=== PATIENT | female | born 1945 | race Caucasian/White ===

== ENCOUNTER 2021-11-22 19:13 | Emergency (ER) | payer MEDICARE, SELFPAY ==
[2021-11-22 19:15] VITALS: BP 120/73; PULSE 103; RESP 18; TEMP 37.3; O2SAT 95; BMI 20.1
--- NOTE | 2021-11-22 19:46 | EDS_ITS ---
HPI History of Present Illness Chief Complaint: Fever Informant: patient and spouse/S.O. 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 Patient diagnosed at [facility] 6 weeks ago. Patient was started on palliative systemic chemotherapy with FOLFIRI, second treatment was this past Thursday with reported 46-hour infusion into Thursday. This afternoon noted chills and fever had a temporal temperature of 100.9 oral temperature of 102. No antipyretics was taken. Chronic cough with phlegm for 6 weeks. Posttussis emesis. No diarrhea. No rashes. Denies urinary symptoms. also reports ascending aortic aneurysm. She is on palliative treatment. Patient given iron transfusion also this past week. No fever with her first treatment. She called on-call oncologist who sent her to the ED. COVID vaccinated. [facility] Medical History Cancer of sigmoid colon Encounter for chemotherapy management Encounter for education History of kidney cancer Liver metastasis Lung metastasis Metastasis to lymph nodes Home Medications liothyronine 5 mcg tablet 7.5 mcg PO BID 11/08/21 [History Last Taken Unknown] loratadine 10 mg tablet (Allergy Relief (loratadine)) 10 mg PO DAILY 11/08/21 [History Last Taken Unknown] prochlorperazine maleate 10 mg tablet 10 mg PO BID PRN . 11/08/21 [History Last Taken Unknown] lidocaine-prilocaine 2.5 %-2.5 % topical cream 1 applic topical ONCE PRN port access 30 days #30 grams 11/14/21 [Rx Last Taken Unknown] ondansetron 8 mg disintegrating tablet 8 mg PO Q8H PRN nausea and vomiting #30 tabs 11/14/21 [Rx Last Taken Unknown] cephalexin 500 mg capsule 500 mg PO Q12 #6 caps 11/22/21 [Rx Last Taken Unknown] guaifenesin 600 mg tablet, extended release 12 hr (Mucinex) 600 mg PO Q12H PRN lunghs 11/22/21 [History Last Taken Unknown] Allergy/AdvReac Type Severity Reaction Status Date / Time morphine Allergy unknown Verified 11/22/21 19:18 alendronate sodium AdvReac joint pain Verified 11/22/21 19:18 risedronate sodium AdvReac Pain in Verified 11/22/21 22:23 joints Family History Mother Breast cancer Brother Lung cancer Aunt Breast cancer Surgical History History of insertion of tunneled central venous catheter (CVC) with port History of nephrectomy, right Hx of hysterectomy Social History (Updated 11/22/21 @ 21:[address] Jacquelyn Moncada MD) household members: spouse Smoking Status: Never smoker alcohol intake: never substance use type: does not use ROS ROS ED Constitutional Constitutional ED: Reports chills and fever(s); Denies sweats Eyes Eyes: Denies change in vision ENT ENT ED: Denies dysphagia or sore throat Cardiovascular Cardiovascular: Denies chest pain, leg edema, palpitations or racing heartbeat Respiratory/Chest Respiratory/Chest: Reports cough; Denies dyspnea or dyspnea on exertion Gastrointestinal Gastrointestinal: Denies abdominal pain, diarrhea, nausea or vomiting Genitourinary Genitourinary ED: Denies dysuria, hematuria or urinary frequency Musculoskeletal Musculoskeletal: Denies back pain, extremity pain or neck pain Integumentary Denies rash or wounds Neurologic Neurologic: Denies headache(s), paresthesias or weakness EXAM Physical Exam Const Vital Signs: 11/22/21 19:15 11/22/21 19:35 11/22/21 21:01 Temperature 99.1 F 100.6 F H Temperature Source Oral Oral Pulse Rate 103 H 90 Respiratory Rate 18 22 H Respiratory Effort Normal Respiratory Pattern Normal Blood Pressure 120/73 112/67 Blood Pressure Mean 88 82 Pulse Ox 95 94 Oxygen Delivery Method Room Air Room Air 11/22/21 22:27 Temperature 98.6 F Temperature Source Pulse Rate 89 Respiratory Rate 16 Respiratory Effort Respiratory Pattern Blood Pressure 116/59 L Blood Pressure Mean Pulse Ox Oxygen Delivery Method Constitutional Narrative: Nontoxic, no acute distress General Appearance ED: NAD HEENT Reports moist mucous membranes normocephalic and atraumatic Eyes PERRL, EOMs intact bilaterally and conjunctivae normal General Eye ED: Yes normal appearance of both eyes Neck no lymphadenopathy and supple General: Negative for tenderness Chest Wall Chest Narrative: Right upper chest wall Mediport clean, dry, intact Chest: Negative for tenderness Resp normal respiratory effort and normal air movement Effort and Inspection: symmetric chest movement; Negative for respiratory distress Cardio regular rate, regular rhythm and no murmurs Peripheral Pulses: pulses 2+ throughout GI normal to inspection, nondistended, normoactive bowel sounds and non-tender Palpation: Negative for guarding or rebound tenderness present Back/Spine no CVA tenderness and no thoracic nor lumbar tenderness Extremity normal to inspection General Extremety ED: Negative for edema or tenderness General Extremity: Negative for edema Neuro oriented x3 and no sensory deficits noted Sensorium / Orientation: awake and alert Skin no rashes or lesions noted and no wounds MDM MDM MDM Narrative Medical decision making narrative: Patient nontoxic. Temp 99.1 on arrival. Recent chemo. Neutropenic labs were ordered. White count 2.5 and absolute neutrophil 2200. Electrolytes normal. COVID-negative. Two-view chest x-ray reviewed myself and read by radiology negative for acute process. Lactic acid 0.8. Urine noted signs of infection. Urine and blood cultures in the lab. She denied any urine symptoms. I discussed with covering oncologist Dr. Seymour, discussed patient's history. He states this could be chemo induced fever however recommend treating urinary tract infection. Initial discussion for Cipro however she has history of thoracic aneurysm therefore Keflex was given and started. They have a follow-up on Thursday. Return precautions discussed. All questions were answered. Lab Data Attestation: I reviewed the patient's lab results. Labs: Laboratory Results - last 24 hr 11/22/21 11/22/21 11/22/21 20:05 20:05 20:05 WBC 2.5 L RBC 3.13 L Hgb 8.3 L Hct 25.9 L MCV 82.7 MCH 26.5 L MCHC 32.0 RDW Std Deviation 52.7 H RDW Coeff of Henry 17.7 H Plt Count 231 MPV 10.0 Immature Gran % (Auto) 0.800 Neut % (Auto) 85.7 H Lymph % (Auto) 10.3 L [place] % (Auto) 1.2 Eos % (Auto) 1.2 Baso % (Auto) 0.8 Absolute Neuts (auto) 2.2 Absolute Lymphs (auto) 0.26 L Nucleated RBC % 0 Differential Comment SEE COMMENT Diff Path Review May foll Platelet Estimate ADEQUATE RBC Morphology NORM C+C Anisocytosis RARE PT 15.8 H INR 1.3 APTT 31.4 Sodium 135 L Potassium 3.8 Chloride 103 Carbon Dioxide 23.0 Anion Gap 9 BUN 15 Creatinine 0.72 Estim Creat Clear Calc 36.52 Est GFR (MDRD) Af Amer 101 Est GFR (MDRD) Non-Af 83 BUN/Creatinine Ratio 20.9 H Glucose 109 H Lactic Acid Calcium 8.0 L Total Bilirubin 0.60 AST 67 H ALT 54 Alkaline Phosphatase 180 H Total Protein 5.0 L Albumin 2.1 L Globulin 2.9 Albumin/Globulin Ratio 0.7 L Urine Color Urine Clarity Urine pH Ur Specific [place] Urine Protein Urine Glucose (UA) Urine Ketones Urine Occult Blood Urine Nitrite Urine Bilirubin Urine Urobilinogen Ur Leukocyte Esterase Urine RBC Urine WBC Ur Squamous Epith Cells Ur Transition Epith Cell Amorphous Sediment Urine Bacteria Urine Mucus 11/22/21 11/22/21 20:05 20:05 WBC RBC Hgb Hct MCV MCH MCHC RDW Std Deviation RDW Coeff of Henry Plt Count MPV Immature Gran % (Auto) Neut % (Auto) Lymph % (Auto) [place] % (Auto) Eos % (Auto) Baso % (Auto) Absolute Neuts (auto) Absolute Lymphs (auto) Nucleated RBC % Differential Comment Diff Path Review Platelet Estimate RBC Morphology Anisocytosis PT INR APTT Sodium Potassium Chloride Carbon Dioxide Anion Gap BUN Creatinine Estim Creat Clear Calc Est GFR (MDRD) Af Amer Est GFR (MDRD) Non-Af BUN/Creatinine Ratio Glucose Lactic Acid 0.8 Calcium Total Bilirubin AST ALT Alkaline Phosphatase Total Protein Albumin Globulin Albumin/Globulin Ratio Urine Color Yellow Urine Clarity Cloudy Urine pH 6.0 Ur Specific [place] 1.015 Urine Protein 15 H Urine Glucose (UA) Normal Urine Ketones 5 H Urine Occult Blood 25 H Urine Nitrite Negative Urine Bilirubin Negative Urine Urobilinogen Normal Ur Leukocyte Esterase 500 H Urine RBC 0-5 SEEN Urine WBC 10-25 SEEN Ur Squamous Epith Cells 0-5 SEEN Ur Transition Epith Cell 0-5 SEEN Amorphous Sediment 1+ URATE Urine Bacteria 3+ Urine Mucus 0 SEEN Radiography Diagnostic Testing: Clinical Impression(s) from Imaging Studies Chest X-Ray 11/22/21 20:38 IMPRESSION: Mild left basilar scarring with no acute pulmonary abnormality. Electronically Signed: Denny Novoa MD at 21:01 EDT , Discharge Plan Triage Chief Complaint: Fever ED Provider: Joey Campa Dx/Rx/DC Orders Clinical Impression: Fever, Cancer of sigmoid colon, Liver metastasis, Neutropenia, Acute UTI, Adenocarcinoma, Chemotherapy adverse reaction, Anemia Instructions: Neutropenia, UTIs Understanding, ED Fever Control (Adult) Prescriptions: New cephalexin [cephalexin] 500 mg capsule 500 mg PO Q12 Qty: 6 0RF No Action liothyronine 5 mcg tablet 7.5 mcg PO BID loratadine [Allergy Relief (loratadine)] 10 mg tablet 10 mg PO DAILY prochlorperazine maleate 10 mg tablet 10 mg PO BID PRN (Reason: .) ondansetron 8 mg tablet,disintegrating 8 mg PO Q8H PRN (Reason: nausea and vomiting) Qty: 30 2RF lidocaine-prilocaine 2.5-2.5 % cream 1 applic topical ONCE PRN (Reason: port access) 30 Days Qty: 30 2RF guaifenesin [Mucinex] 600 mg Tablet Extended Release 12hr 600 mg PO Q12H PRN (Reason: lunghs) Primary Care Provider: Minda Madden Referrals: Minda Madden MD [Primary Care Provider] - Angeline Sheppard MD [Med Staff - Active Staff] - 3-5 Days Activity Restrictions/Additional Instructions: Take antibiotic as prescribed for UTI. Tylenol as needed. Blood cultures pending. COVID-negative. Chest x-ray negative. White count 2.5 absolute neutrophils 2200. Hemoglobin 8.3. Follow-up on Thursday, return if any worsening symptoms. Disposition Disposition: Home, Self Care Discharge Date/Time: 11/22/21 22:30
[2021-11-22 20:19] LABS: Mucous, Urine 0 SEEN /hpf (<or=2+)
[2021-11-22 20:23] LABS: Absolute Lymphocyte Count 0.26 X10^3/uL (0.83-4.51); Absolute Neutrophil Count 2.2 X10^3/uL (2.0-7.7); Basophil# 0.02 X10^3/uL; Basophil% 0.8 % (0-1); Eosinophil# 0.03 X10^3/uL; Eosinophils% 1.2 % (0-5); Hematocrit 25.9 % (37-47); Hemoglobin 8.3 g/dL (12.0-15.0); Lymphocyte # 0.26 X10^3/ul (0.83-4.51); Lymphocyte % 10.3 % (19-41); Mean Corpuscular Hgb 26.5 pg (27.0-32.0); Mean Corpuscular Volume 82.7 fL (81-99); Monocyte# 0.03 X10^3/uL; Monocyte% 1.2 % (0-10); NRBC Flagged by Analyzer 0 % (0-5); Neutrophil # 2.17 X10^3/uL (2.7-7.7); Neutrophil % 85.7 % (47-70); POSITIVE DIFFERENTIAL YES; Platelet Count 231 K/mm3 (150-450); RBC Distribution Width CV 17.7 % (11.6-14.6); RBC Distribution Width SD 52.7 fl (35.1-43.9); Red Blood Count 3.13 M/mm3 (4.2-5.4); White Blood Count 2.5 K/mm3 (4.4-11.0)
[2021-11-22 20:27] LABS: Color, Urine Yellow (Yellow); Glucose, Dipstick Normal (Normal); Ketone-Dipstick 5 mg/dl (Negative); Leukocyte Esterase-Dipstick 500 /ul (Negative); Nitrite-Dipstick Negative (Negative); Occult Blood-Urine 25 /ul (Negative); Protein-Dipstick 15 mg/dl (Negative); Specific Gravity, Urine 1.015 (1.002-1.030); Urine Bilirubin Dipstick Negative (Negative); Urine Clarity Cloudy (Clear); Urine Urobilinogen Normal (Normal)
[2021-11-22 20:29] LABS: Differential Indicated SCAN CRITERIA MET
[2021-11-22 20:32] LABS: International Normalized Ratio 1.3; Prothrombin Time (Protime)PT. 15.8 SECONDS (11.7-14.9)
[2021-11-22 20:33] LABS: Partial Thromboplast Time 31.4 Seconds (24.1-36.2)
[2021-11-22 20:37] LABS: Red Blood Cells-Urine 0-5 SEEN /hpf (0-5); Squamous Epithelial Cells - UA 0-5 SEEN /hpf (5-10); Transitional Epithelial - Ur 0-5 SEEN /hpf (0-5); White Blood Cells 10-25 SEEN /hpf (0-5)
[2021-11-22 20:38] LABS: Amorphous Sediment 1+ URATE; Bacteria 3+ /hpf (None Seen)
--- NOTE | 2021-11-22 20:38 | RAD_ITS ---
EXAM: XR CHEST, 2 VIEWS CLINICAL INDICATION: cough TECHNIQUE: Frontal and lateral views of the chest. This report was created using [employer] report generation technology. COMPARISON: None. FINDINGS: LUNGS AND PLEURAL SPACES: There is minimal scarring in the left lung base. No pneumothorax. No effusion. HEART: Unremarkable. Cardiac silhouette not enlarged. MEDIASTINUM: Central airways and mediastinal contour are unremarkable. BONES/JOINTS: There is mild curvature of the thoracolumbar spine. SOFT TISSUES: Unremarkable. TUBES, LINES AND DEVICES: There is a right-sided Port-A-Cath with the distal tip overlying the superior vena cava. UPPER ABDOMEN: Multiple surgical clips are seen in the upper abdomen. RAD/Chest PA and Lateral IMPRESSION: Mild left basilar scarring with no acute pulmonary abnormality. Electronically Signed: Denny Novoa MD at 21:01 EDT ,
[2021-11-22 20:43] LABS: ALB/GLOB Ratio 0.7 RATIO (0.9-2.4); AST(SGOT) 67 U/L (15-37); Alanine Aminotransfer ALT/SGPT 54 U/L (13-56); Albumin, Serum 2.1 g/dL (3.2-5.0); Alkaline Phosphatase 180 U/L (45-117); Anion Gap 9 (5-15); BUN 15 mg/dL (7-18); BUN/Creat Ratio 20.9 RATIO (10-20); Chloride 103 mmol/L (98-107); Creatinine, Serum 0.72 mg/dL (0.55-1.02); EST Glomerular Filtration Rate 83 mL/min (>60); Est Glom Filt Rate - Afr Amer 101 mL/min (>60); Estimated Creatinine Clearance 36.52 ml/min; Globulin 2.9 g/dL (2.2-4.2); Glucose 109 mg/dL (74-106); Potassium 3.8 mmol/L (3.5-5.1); Sodium Level 135 mmol/L (136-145)
[2021-11-22 20:45] LABS: Anisocytosis RARE; Platelet Estimate ADEQUATE (ADEQ)
[2021-11-22 20:46] LABS: Red Cell Morphology NORM C+C NORMAL (NORM C&C)
[2021-11-22 21:01] VITALS: BP 112/67; PULSE 90; RESP 22; TEMP 38.1; O2SAT 94
[2021-11-22 21:01] LABS: Lactic Acid 0.8 mmol/L (0.4-1.9)
[2021-11-22] MEDS: Acetaminophen 500 MG Tablet 1000 MG PO (21:21)
[2021-11-22] MEDS: Cephalexin 250 MG Capsule 500 MG PO (22:18)
[2021-11-22 22:27] VITALS: BP 116/59; PULSE 89; RESP 16; TEMP 37
[2021-11-25 11:14] LABS: Pathologist Review Reviewed
== END 2021-11-22 22:30 | disposition home or self-care (01) ==
PROVIDERS: Emergency Provider Emergency Medicine; PCP Family Medicine; Visit Provider Emergency Medicine
DX: C18.7 Malignant neoplasm of sigmoid colon (principal); C78.7 Secondary malignant neoplasm of liver and intrahepatic bile duct; C78.00 Secondary malignant neoplasm of unspecified lung; D70.9 Neutropenia, unspecified; R50.9 Fever, unspecified; N39.0 Urinary tract infection, site not specified; D63.0 Anemia in neoplastic disease; D64.81 Anemia due to antineoplastic chemotherapy; Z20.822 Contact with and (suspected) exposure to COVID-19; Z92.21 Personal history of antineoplastic chemotherapy
CPT/HCPCS: 36591; 71046; 80053; 81001; 83605; 85025; 85610; 85730; 87040; 87077; 87086; 87088; 87186; 87811; 99284

== ENCOUNTER → 2022-02-12 | Outpatient (CLI) | payer MEDICARE, SELFPAY ==
--- NOTE | 2022-02-12 08:02 | CT_ITS ---
STUDY: CT CHEST, ABDOMEN T PELVIS WITH CONTRAST REASON FOR EXAM: Female, 76 years old. ASSESS TREATMENT RESPONSE. Patient has a history of colon carcinoma. RADIATION DOSAGE (If Supplied By Facility): CTDIvol = ( 8.58 ) mGy, DLP = ( 609.40 ) mGycm TECHNIQUE: Transaxial imaging was performed following intravenous administration of Oral and amp; IV Readi-CAT and amp; 75mL Isovue-300. Multiplanar coronal and sagittal images were reformatted. Individualized dose optimization techniques were used for this CT. COMPARISON: Comparison is made with prior study dated 09/28/2021 and 09/13/2021. FINDINGS: CHEST Hyperinflation. Emphysematous changes more prominent in the upper lobes. There is no demonstrated pleural abnormality. Mild degree of anterior pericardial thickening. There are calcifications of the coronary arteries. Normal mediastinum. Normal hilar regions. Normal unenhanced pulmonary arteries. Stable fusiform descending thoracic aortic aneurysm with a transverse dimension of 6.1 cm. There are multi-level degenerative changes of the thoracic spine. Increased kyphosis. ABDOMEN Hepatomegaly. There is a 6.5 cm x 6.7 cm x 6.3 cm heterogeneous enhancing mass in the posterior aspect of the right lobe of the liver extending from the dome down to its lower portion. This has improved as compared to prior study. There is also evidence of a 1.2 cm hypodense nodule in the peripheral lateral aspect of the dome of the right lobe of the liver. The patient is status post cholecystectomy. Normal spleen. Normal pancreas. Normal bilateral adrenal glands. The patient is status post right nephrectomy. Normal left kidney. Normal visualized stomach. Stable large duodenal diverticulum in the second portion of the duodenum. There are multiple colonic diverticula consistent with diverticulosis. There is non-visualization of the appendix. There is diffuse atherosclerotic calcification of the abdominal aorta, without a demonstrated aneurysm. Normal inferior vena cava. Normal retroperitoneum. Normal abdominal wall. There are diffuse degenerative changes of the visualized lumbar spine. Levoscoliosis. PELVIS Distended urinary bladder. Patient is status post appendectomy. There is diffuse atherosclerotic calcification of the pelvic arteries. CT/CT Chest, Abd, Pel w/Contrast IMPRESSION: Stable fusiform aneurysm of the ascending thoracic aorta. Interval improvement of the right hepatic mass. Status post right nephrectomy. Electronically Signed: Azael Barnett MD at 13:37 EST ,
[2022-02-12] MEDS: 0.9% Saline Lock 10 ML Syringe IV (08:20)
== END | disposition home or self-care (01) ==
LOC: CT 08:00
PROVIDERS: PCP Family Medicine; Visit Provider Internal Medicine Hematology & Oncology
DX: Z90.49 Acquired absence of other specified parts of digestive tract (principal); C18.7 Malignant neoplasm of sigmoid colon; I70.0 Atherosclerosis of aorta; I25.10 Atherosclerotic heart disease of native coronary artery without angina pectoris; I71.23 Aneurysm of the descending thoracic aorta, without rupture; Z90.5 Acquired absence of kidney; R16.0 Hepatomegaly, not elsewhere classified
CPT/HCPCS: 71260; 74177; J7040; Q9967; A4216

== ENCOUNTER 2022-03-18 10:21 | Emergency (ER) | payer MEDICARE, SELFPAY ==
[2022-03-18 10:21] VITALS: BP 136/76; PULSE 82; RESP 18; TEMP 36.3; O2SAT 99; BMI 20.2
--- NOTE | 2022-03-18 10:33 | ED.RN ---
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
--- NOTE | 2022-03-18 10:53 | CT_ITS ---
STUDY: CT ABDOMEN AND PELVIS WITHOUT CONTRAST REASON FOR EXAM: Female, 76 years old. Right flank pain. RADIATION DOSAGE (If Supplied By Facility): CTDIvol = ( 6.14 ) mGy, DLP = ( 262.15 ) mGycm TECHNIQUE: Transaxial images were obtained from the dome of the diaphragm to the symphysis pubis without oral contrast, and without intravenous contrast. Sagittal and coronal images were reconstructed. Individualized dose optimization techniques were used for this CT. COMPARISON: Comparison is made with prior examination dated 02/12/2022. FINDINGS: Mild scarring and bronchiectasis in the posterior medial segment of the left lower lobe. Mild scarring at the right lung base. Coronary artery calcification. Once again, there is heterogeneous appearance of the liver with multiple hypodense lesions. The largest is in the posterior aspect of the right lobe liver measuring 5.7 cm by 6.5 cm. There are surgical clips in the gallbladder fossa consistent with a prior cholecystectomy. Normal spleen. Normal pancreas. Normal bilateral adrenal glands. Once again, the patient is status post right nephrectomy and adrenalectomy. Normal left kidney. Normal visualized stomach. Normal small intestine. There are multiple colonic diverticula consistent with diverticulosis. There is non-visualization of the appendix. There is diffuse atherosclerotic calcification of the abdominal aorta, without a demonstrated aneurysm. Normal inferior vena cava. Normal retroperitoneum. Normal urinary bladder. There is absence of the uterus consistent with a prior hysterectomy. Normal abdominal wall. There are diffuse degenerative changes of the visualized lumbar spine. Levoscoliosis. CT/Abdomen/Pelvis without Cont IMPRESSION: Heterogeneous appearance of the liver with hepatic masses as described in keeping with metastatic disease. Status post right nephrectomy. Electronically Signed: Azael Barnett MD at 12:41 EST ,
[2022-03-18] MEDS: 0.9% Normal Saline 1,000 ML 100 ML IV (11:04)
--- NOTE | 2022-03-18 11:08 | EDS_ITS ---
HPI HPI - GI History of Present Illness Chief Complaint: Abd Pain Informant: patient and spouse/S.O. 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 Patient has had a prior right nephrectomy, appendectomy and hysterectomy with salpingo-oophorectomy. She states that she has been having pain since 08 March. It seems to worsen the evening. Last Thursday (03/14) she was prescribed Augmentin from her primary care doctor for presumed diverticulitis. Patient does have known diverticulum. She is continued have pain and has had worsening pain despite taking antibiotic. She states that the antibiotic was upsetting her stomach so yesterday she only took 1 Augmentin instead of 2 but the other day she was taking it twice a day. She states she had 3 good bowel movements yesterday and one today. Denies any black or blood in her stool. Denies any urinary symptoms. Denies any fever or chills. Saw her oncologist today who checked a CBC and a CMP and sent her to the ER for further evaluation and concern for failure of outpatient treatment. 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 11/08/21 [History Last Taken Unknown] lidocaine-prilocaine 2.5 %-2.5 % topical cream 1 applic topical ONCE PRN port access 30 days #30 grams 11/14/21 [Rx Last Taken Unknown] ondansetron 8 mg disintegrating tablet 8 mg PO Q8H PRN nausea and vomiting #30 tabs 11/14/21 [Rx Last Taken Unknown] diphenhydramine HCl 25 mg capsule (ZzzQuil) 25 mg PO QHS PRN Insomnia 12/24/21 [History Last Taken Unknown] meloxicam 7.5 mg tablet 7.5 mg PO DAILY 01/21/22 [History Last Taken Unknown] acetaminophen 500 mg tablet (Tylenol Extra Strength) 500 mg PO Q6H PRN 03/18/22 [History Last Taken Unknown] amoxicillin 875 mg-potassium clavulanate 125 mg tablet 1 tab PO BID 03/18/22 [History Last Taken Unknown] dicyclomine 10 mg capsule 20 mg PO TID PRN abdominal discomfort #20 caps 03/18/22 [Rx Last Taken Unknown] Allergy/AdvReac Type Severity Reaction Status Date / Time morphine Allergy unknown Verified 03/18/22 10:24 alendronate sodium AdvReac joint pain Verified 03/18/22 10:24 risedronate sodium AdvReac Pain in Verified 03/18/22 10:24 joints Family History Mother Breast cancer Brother Lung cancer Aunt Breast cancer Surgical History History of insertion of tunneled central venous catheter (CVC) with port History of nephrectomy, right Hx of hysterectomy Social History household members: spouse Smoking Status: Never smoker alcohol intake: never substance use type: does not use ROS ROS ED Constitutional Constitutional ED: Denies chills, fever(s) or sweats ENT ENT ED: Denies sore throat Cardiovascular Cardiovascular: Denies chest pain or palpitations Respiratory/Chest Respiratory/Chest: Denies cough Gastrointestinal Gastrointestinal: Reports abdominal pain; Denies constipation, diarrhea, melena, nausea or vomiting Genitourinary Genitourinary ED: Denies dysuria, hematuria or urinary frequency Musculoskeletal Musculoskeletal: Reports back pain; Denies arthralgias or myalgias Integumentary Denies rash Neurologic Neurologic: Denies headache(s), paresthesias or weakness Psychiatric Psychiatric: Denies anxiety Hematologic/Lymphatic Hematologic/Lymphatic: Denies easy bleeding or easy bruising EXAM Physical Exam Const Vital Signs: 03/18/22 10:21 Temperature 97.4 F L Temperature Source Temporal Pulse Rate 82 Respiratory Rate 18 Blood Pressure 136/76 H Blood Pressure Mean 96 Pulse Ox 99 Oxygen Delivery Method Room Air Positive well nourished and well developed General Appearance ED: well developed and NAD HEENT Reports moist mucous membranes Eyes PERRL and EOMs intact bilaterally Neck supple Resp normal respiratory effort and clear to auscultation bilaterally Cardio regular rate, regular rhythm and no murmurs GI non-distended GI Narrative: Mild diffuse right lower quad abdominal pain. Patient points to her right flank as her area of pain. Negative Bruce sign. Patient does have soft, nontender hernia in the right mid abdomen when she bears down. It is reducible with no air or overlying erythema. It is nontender. Auscultation: normoactive bowel sounds Palpation: soft and tender RLQ; Negative for pulsatile mass Back/Spine no CVA tenderness Extremity full ROM General Extremety ED: Negative for edema or tenderness General Extremity: Negative for edema Neuro moves all extremities Sensorium / Orientation: alert, oriented to person, oriented to place and oriented to time Motor Exam: Negative for general weakness Psych mental status grossly normal Skin no wounds General Skin Exam: Negative for jaundice Rashes: no rashes MDM MDM MDM Narrative Medical decision making narrative: Patient's prior oncology note from earlier today independently reviewed. Patient is on palliative treatment with FOLFIRI. 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 Outpatient lab work ordered today showed CBC with white blood cell count of 9.5, hemoglobin of 12, hemocrit of 35.9 and platelet count of 163. Patient's immature granulocytes are 1.2% with neutrophil predominance. largely normal with a BUN of 19, creatinine of 0.94 (her baseline), elevated alkaline phosphatase of 171 and mild hyperkalemia of 114. All these are baseline. No other significant abnormalities. Will check urinalysis and obtain a CT of the abdomen and pelvis with IV contrast for further evaluation including signs of complications of diverticulitis including perforation and abscess in addition to obstruction or other acute intra-abdominal pathology. Patient declines any pain medicine at this time. Will start on maintenance fluids at 100 cc/h. Patient's urinalysis is largely normal. CT the abdomen pelvis with IV contrast shows no metastatic disease. No acute diverticulitis. On my interpretation she does have some increased stool burden will be treated as if she is constipation. Patient has senna and MiraLAX that she can take at home. She is counseled to take 1 not both as she does not want to have significant diarrhea. She is a started on Bentyl to help with pain. Given her lack of fever, leukocytosis or acute findings on her CT I do not think she requires admission at this time. Patient agreeable this plan of care. Patient declined any pain medicine in the ER and does not appear to be in any significant distress. Lab Data Attestation: I reviewed the patient's lab results. Labs: Laboratory Results - last 24 hr 03/18/22 11:30 Urine Color Yellow Urine Clarity Clear Urine pH 6.0 Ur Specific [place] 1.015 Urine Protein Negative Urine Glucose (UA) Normal Urine Ketones Negative Urine Occult Blood 10 H Urine Nitrite Negative Urine Bilirubin Negative Urine Urobilinogen Normal Ur Leukocyte Esterase Negative Urine RBC 0 SEEN Urine WBC 0 SEEN Ur Squamous Epith Cells 0 SEEN Urine Bacteria 0 SEEN Urine Mucus 0 SEEN Radiography Diagnostic Testing: Clinical Impression(s) from Imaging Studies Abdomen/Pelvis CT 03/18/22 10:53 IMPRESSION: Heterogeneous appearance of the liver with hepatic masses as described in keeping with metastatic disease. Status post right nephrectomy. Electronically Signed: Azael Barnett MD at 12:41 EST , Discharge Plan Triage Chief Complaint: Abd Pain ED Provider: Rubina Ballard Dx/Rx/DC Orders Clinical Impression: Abdominal pain of unknown etiology Instructions: ED Abdominal Pain Unkn Cause Fem, ED Constipation (Adult) Prescriptions: New dicyclomine 10 mg capsule 20 mg PO TID PRN (Reason: abdominal discomfort) Qty: 20 0RF No Action liothyronine 5 mcg tablet 7.5 mcg PO BID loratadine [Allergy Relief (loratadine)] 10 mg tablet 10 mg PO DAILY prochlorperazine maleate 10 mg tablet 10 mg PO BID PRN (Reason: .) ondansetron 8 mg tablet,disintegrating 8 mg PO Q8H PRN (Reason: nausea and vomiting) Qty: 30 2RF lidocaine-prilocaine 2.5-2.5 % cream 1 applic topical ONCE PRN (Reason: port access) 30 Days Qty: 30 2RF diphenhydramine HCl [ZzzQuil] 25 mg capsule 25 mg PO QHS PRN (Reason: Insomnia) meloxicam 7.5 mg tablet 7.5 mg PO DAILY acetaminophen [Tylenol Extra Strength] 500 mg tablet 500 mg PO Q6H PRN amoxicillin-pot clavulanate 875-125 mg tablet 1 tab PO BID Rx Instructions: 20 tabs given started on evening of 03/14/22 Primary Care Provider: Minda Madden Referrals: Minda Madden MD [Primary Care Provider] - Activity Restrictions/Additional Instructions: Your CT and lab work is not reflective of diverticulitis, infection or other more severe pathology. No signs of an obstruction or CT. You do have some increase stool burden and possible your pain could be from constipation or movement of the stool in your bowels. We will start you on Bentyl and I recommend either taking senna or MiraLAX as we discussed to help you further bowel movement/cleanout. Please follow-up with your primary care doctor. Return if you have progression or worsening of your symptoms. Disposition Disposition: Home, Self Care Discharge Date/Time: 03/18/22 13:54
[2022-03-18 11:41] LABS: Bacteria 0 SEEN /hpf (None Seen); Mucous, Urine 0 SEEN /hpf (<or=2+); Red Blood Cells-Urine 0 SEEN /hpf (0-5); Squamous Epithelial Cells - UA 0 SEEN /hpf (5-10); White Blood Cells 0 SEEN /hpf (0-5)
[2022-03-18 11:47] LABS: Color, Urine Yellow (Yellow); Glucose, Dipstick Normal (Normal); Ketone-Dipstick Negative (Negative); Leukocyte Esterase-Dipstick Negative /ul (Negative); Nitrite-Dipstick Negative (Negative); Occult Blood-Urine 10 /ul (Negative); Protein-Dipstick Negative (Negative); Specific Gravity, Urine 1.015 (1.002-1.030); Urine Bilirubin Dipstick Negative (Negative); Urine Clarity Clear (Clear); Urine Urobilinogen Normal (Normal)
== END 2022-03-18 13:54 | disposition home or self-care (01) ==
PROVIDERS: Emergency Provider Emergency Medicine; PCP Family Medicine; Visit Provider Emergency Medicine
DX: R10.31 Right lower quadrant pain (principal); C78.7 Secondary malignant neoplasm of liver and intrahepatic bile duct; K57.92 Diverticulitis of intestine, part unspecified, without perforation or abscess without bleeding; Z92.21 Personal history of antineoplastic chemotherapy; Z90.5 Acquired absence of kidney; Z90.721 Acquired absence of ovaries, unilateral; Z90.49 Acquired absence of other specified parts of digestive tract; Z85.038 Personal history of other malignant neoplasm of large intestine; Z79.899 Other long term (current) drug therapy
CPT/HCPCS: 36591; 74176; 80053; 81001; 83735; 85025; 99282; J7030; A4216

== ENCOUNTER → 2022-05-30 | Outpatient (CLI) | payer MEDICARE, SELFPAY ==
--- NOTE | 2022-05-30 14:00 | CT_ITS ---
STUDY: CT CHEST, ABDOMEN T PELVIS WITH CONTRAST REASON FOR EXAM: Female, 76 years old. met colon ca assess response to treatment RADIATION DOSAGE (If Supplied By Facility): CTDIvol = ( 9.08 ) mGy, DLP = ( 611.54 ) mGycm TECHNIQUE: Transaxial imaging was performed following intravenous administration of IV 100mL Isovue-300. Oral contrast was also utilized. Multiplanar coronal and sagittal images were reformatted. Individualized dose optimization techniques were used for this CT. COMPARISON: CT the abdomen and pelvis, March 18, 2022. CT of the chest abdomen pelvis, February 12, 2022 FINDINGS: CHEST Right jugular Port-A-Cath. Lungs are mildly hyperexpanded. There is no focal mass or infiltrate. There is no demonstrated pleural abnormality. The heart is borderline enlarged. Minimal pericardial thickening versus pericardial effusion. Coronary artery calcifications are noted. Normal mediastinum. Normal hilar regions. Normal unenhanced pulmonary arteries. There is marked dilatation of the ascending thoracic aorta which measures 6.5 x 6.3 cm in greatest dimension. This tapers into the arch. Scattered atherosclerotic changes. No evidence of dissection. Normal osseous structures. ABDOMEN The liver is enlarged. In segment 7 of the liver is ill-defined area of low attenuation with peripheral patchy enhancement measuring 5.9 x 6.4 x 5.4 cm. The liver is otherwise grossly normal in enhancement. Normal gallbladder and extrahepatic biliary system. Normal spleen. Normal pancreas. Nonvisualization of the right adrenal gland. Normal left adrenal gland. There is absence of right kidney with multiple surgical clips suggesting nephrectomy. Normal left kidney. Normal visualized left ureter. Normal visualized stomach. Normal small intestine. Feces is seen throughout nondistended colon without mass or obstruction. Scattered diverticuli without acute inflammatory change. There are surgical clips in the region of the appendix consistent with a prior appendectomy. There is diffuse atherosclerotic calcification of the abdominal aorta with elongation and tortuosity, but without a demonstrated aneurysm. Normal inferior vena cava. Normal retroperitoneum. PELVIS Normal urinary bladder. Status post hysterectomy. Unremarkable vaginal cuff. There is no pelvic fluid. There is no pelvic lymphadenopathy or mass lesion. No free air is noted. There is diffuse atherosclerotic calcification of the pelvic arteries. Normal abdominal wall. Levoscoliosis and degenerative changes lumbar spine. Mild degenerative changes of the hips. CT/CT Chest, Abd, Pel w/Contrast IMPRESSION: 1. Stable aneurysm of the ascending thoracic aorta without dissection. 2. Emphysematous changes of lungs without mass or infiltrate. 3. Stable right hepatic mass. 4. No acute intra-abdominal or pelvic process or interval change. AIDOC was utilized to assist in identifying pertinent positive findings in this case. Electronically Signed: Manjit Gan DO at 17:38 EDT ,
== END | disposition home or self-care (01) ==
LOC: CT 14:00
PROVIDERS: PCP Family Medicine; Visit Provider Nurse Practitioner Family
DX: C18.7 Malignant neoplasm of sigmoid colon (principal)
CPT/HCPCS: 71260; 74177; Q9967; A4216

== ENCOUNTER 2022-06-12 05:58 | Day surgery (SDC) | payer MEDICARE, SELFPAY ==
[2022-06-12] VITALS (7 sets, daily range): BP systolic 113–141; BP diastolic 62–71; PULSE 76–84; RESP 16; TEMP 36.5–36.7; O2SAT 94–98; BMI 20.4
[2022-06-12] MEDS: Lactated Ringers 1,000 ML 15 ML IV (06:37)
--- NOTE | 2022-06-12 07:08 | PCM.HP.BLA ---
History and Physical Date of Admission: 06/12/22 Date of Service:? 05/23/22 MR#: [id number] Acct: [id number] Name:ITZEL MOLINA Rep #: [id number] : 1945 ? ? Provider: Dr. Bre Dudley MD Age/Sex:? 76/F ? ? [place] [facility] [place] Status: Signed Intake Vital Signs ? 04/22/2308:29 05/20/2308:31 Height 5 ft 1 in 5 ft 1 in Weight: ? 108 lb 3.987 oz BMI ? 20.4 Intake Visit Reasons:?3WK F/U SUTURE REMOVAL Chief Complaint: 3wk f/u suture removal Allergies morphine Allergy (Verified 05/06/22 08:53) unknownalendronate sodium Adverse Reaction (Verified 05/06/22 08:53) joint painrisedronate sodium Adverse Reaction (Verified 05/06/22 08:53) Pain in joints PFSH Medical History? Cancer of sigmoid colon Cellulitis of foot Chemotherapy-induced neutropenia Encounter for chemotherapy management Encounter for education History of kidney cancer Liver metastasis Lung metastasis Metastasis to lymph nodes Prerenal azotemia Right flank pain Right flank pain Surgical History? History of insertion of tunneled central venous catheter (CVC) with port History of nephrectomy, right Hx of hysterectomy Family History? Mother?? Breast cancerBrother?? Lung cancerAunt?? Breast cancer Social History? household members:? spouse Smoking Status:? Never smoker alcohol intake:? never substance use type:? does not use HPI HPI HPI: 76-year-old female presents due to previous dehiscence of right chest port site incision.? We have attempted to resuture this with nylon 2 previous times waiting 10 days in 2 weeks between removal.? However this has not been able to close.? Currently patient has had this in for about 3 weeks.? Patient has been receiving her chemotherapy with no issues no signs of infection. ROS General General: No weight change, appetite, fatigue, colon cancer, breast cancer or weakness HEENT HEENT: No difficulty swallowing, eye injury, eye surgery, swollen glands or hoarseness Endo Endocrine: No thyroid disease, diabetes mellitus, thyroid cancer, Hair loss, heat intolerance or cold intolerance Skin Skin: No rash or changing moles Breast Breast: No left breast lump, right breast lump, nipple discharge, breast pain, abnormal mammogram, abnormal US or breast enlargement Musc Musculoskeletal: No back problems, arthritis, rheumatoid arthritis, gout or joint pain Cardio Cardiovascular: No murmur, pacemaker, heart disease, atrial fibrillation, high blood pressure, heart attack, heart stent, palpitations, shortness of breat with exertion or chest pain Psych Psychiatric: No depression, anxiety or hearing voices Resp Respiratory: No shortness of breath, No sleep apnea, No cough, No COPD, No asthma, No emphysema and No wheezing Gastro Gastrointestinal: No abdominal pain, No nausea or vomiting, No diarrhea, No constipation, No blood in stool, No acid reflux, No hemorrhoids, No ulcers, No gallbladder problem and No black,tarry stools Salomon Hematologic: No blood thinners, No blood disorders, No bleeding, No anemia and No blood clots Neuro Neurologic: No system reviewed and no additional complaints, except as documented, No as per HPI, No abnormal gait, No abnormal hearing, No abnormal movements, No abnormal speech, No behavioral changes, No burning sensations, No confusion, No convulsions, No disequilibrium, No dizziness, No localized weakness, No frequent falls, No headache(s), No lack of coordination, No loss of vision, No memory loss, No numbness, No other visual disturbances, No radicular pain, No restless legs, No sensory deficit, No syncope, No tingling, No tremor(s), No weakness and No other Exam Const General: cooperative, comfortable and no acute distress Chest Other: Right chest permanent sutures in place?suture removed in office however there is still remaining open wound.? Thus decided to resuture the area with a horizontal mattress suture with 3-0 nylon.? Area was cleaned with Betadine and the area was sutured with sterile procedure. Resp Effort & Inspection: normal respiratory effort Assessment and Plan Assessment and Plan (1) Encounter for care related to Port-a-Cath: ?Status:?Acute (2) Dehiscence of incision: ?Status:?Acute ?Comment: Right IJ port site- about 3 mm opening, no signs of infection (3) Cancer of sigmoid colon: ?Status:?Chronic (4) Liver metastasis: ?Status:?Chronic (5) Lung metastasis: ?Status:?Chronic Plan Discussed with patient and her that we will resuture this but plan for replacement of port on the left side and removal of this 1 on the right as I do not think there is any other way to get this incision to heal.? Patient and her were agreeable with plan.? We will keep her nylon suture in until I return from vacation we will plan for the first week of June as that is also a break from her chemotherapy for port replacement. I have discussed above with the patient- Port-a-Cath placement.? Left IJ, removal of right IJ Patient has been counseled as to the risks/benefits of the procedure. I have explained the risks of the surgery, including but not limited to: infection, bleeding, injury to any blood vessels/nerves, injury to lungs (such as pneumothorax or hemothorax and need for chest tube), not having any access, nonfunctioning of port due to thrombosis, infection of port, etc.? the patient understands and agrees to proceed. I have answered all the patient's questions to the patient?s satisfaction and the patient has no further questions. Bre Dudley M.D. Pager: [phone] [facility] [address] [place] [address], [address] [place] [address] Office: [phone] Coding Level of Care Code Off vis,est,level 4 Diagnoses Encounter for care related to Port-a-Cath? Z45.2 Dehiscence of incision? T81.31XA Cancer of sigmoid colon? C18.7 Liver metastasis? C78.7 Lung metastasis? C78.00 05/23/22 1407 <Electronically signed by Bre Dudley MD> Date Bre Dudley MD
[2022-06-12] MEDS: Cefazolin 2 GM in 0.9% Normal Saline 100 ML IV (07:29)
[2022-06-12] MEDS: Lidocaine 1% /Epi 1:100 (20ml) 20 ML Vial (08:00)
[2022-06-12] MEDS: Bupivacaine 0.25% 30 ML Vial (08:00)
--- NOTE | 2022-06-12 08:24 | OP.PCM_ITS ---
Report of Operation Date of Procedure: 06/12/22 Pre-Operative Diagnosis: Z45.2, dehiscence of port incision, metastatic colon c ancer Post-Operative Diagnosis: Same Surgery/Procedure Performed:: 1. Removal of right IJ port 2. Placement of the left IJ port 3. Use of ultrasound 4. Use of fluoroscopy Surgeon: Bre Dudley Type of Anesthesia: Local MAC Anesthesiologist: Devonte Scott Special Medications: Ancef 2 g IV x1 Specimen's removed: 1. Right IJ port Estimated Blood Loss (mL): < 10 cc Description of Procedure: After informed consent was given, the patient was brought to the operating room and placed in the supine position. Appropriate time out protocol was followed. Patient was then given IV conscious sedation for anesthesia. The right chest was prepped and draped in usual sterile fashion. Local anesthesia of mixture of 1% lidocaine with epinephrine and 0.25% Marcaine was used. The previous right port site was re-incised with a 15 blade scalpel in Metzenbaum scissors were used to sharply incise the capsule surrounding the port. The catheter was removed while pressure was being held on the right IJ site externally. Next the port was removed from the pocket. The incision was closed with 3-0 Vicryl subdermal sutures with Steri's and OpSite. The patient's left upper chest and neck were then prepped with a surgical skin preparation and sterile surgical drapes were placed. After proper landmarks were ascertained, the skin at the upper left chest area was then infiltrated with 1:1 mixture of 1% lidocaine with epinephrine and 0.25% marcaine. A needle trocar was then inserted into the left internal jugular vein with ultrasound guidance-multiple vessels were viewed with u/s and the left IJ was chosen-- and there was good aspiration of venous blood. A wire was then threaded into the needle trocar and this was visualized under fluoroscopy to ensure that the wire was in the superior vena cava. Once this was done, then the needle trocar was removed. A small skin carmel was made with an 11 blade knife at the wire entrance site. The dilator with the introducer sheath attached was then placed over the wire into the left internal jugular vein via the Seldinger technique and this was visualized under fluoroscopy. The dilator and sheath were in proper position as visualized by fluoroscopy. A subcutaneous pocket was then created caudad to the catheter insertion site. A transverse skin incision was made after the skin and subcutaneous tissues were infiltrated with local anesthetic. Blunt dissection was then used to create a space large enough for placement of the subcutaneous port. The catheter was then tunneled into the subcutaneous pocket. The wire and dilator were then removed. The catheter was then threaded into the introducer sheath and was positioned with its tip at the junction of the superior vena cava and the right atrium as visualized under fluoroscopy. The excess catheter was transected. The catheter was then attached to the subcutaneous port using manufacturers guidelines. The catheter was flushed with a heparin saline mixture prior to placement. Hemostasis was carefully controlled with electrocautery. The port was sutured to the subcutaneous fascia using 2-0 Vicryl suture at two sites. The port was then placed in the subcutaneous pocket. The incision were reapproximated with interrupted subdermal 3-0 vicryl sutures. The skin was reapproximated with 3-0 nylon suture in a interrupted fashion. Steristrips were used for reinforcement of the skin closure at IJ insertion site and a sterile opsite dressings were applied. The patient tolerated the procedure well. Grafts/Implants Used: Bard PowerPort isp M.R.I. 8Fr Lot [id number] Complications none
--- NOTE | 2022-06-12 08:29 | DCINST_ITS ---
Discharge Instructions Procedure Port-A-Cath Diet Discharge Diet: Light diet - advance as tolerated Activity May shower in (days): 5 (Keep port site clean and dry x5 days. Neck incision okay to get wet after 1 day. Okay to lower shower and upper sponge bath. OR okay to taper off port site with a Ziploc bag to shower) Lifting Restrictions: No lifting > 15 pounds for 3 days with the arm on the side of the port Dressing / Incision Call your doctor if your incision/area has: Continuous Slow Oozing, Sudden Increased Bleeding, Increased Pain/ Swelling, Increased Redness, Foul Smelling Discharge and Swelling at the incision site Call your doctor if you observe: Fever of 101 or Higher Change Dressing in: 2 days Follow Up Care Please Follow Up With: Bre Dudley MD When: In 10 days for permanent suture removal?call office for appointment Test Results: Test results from this visit will be discussed in further detail at your follow- up appointment, if applicable. Discharge Plan Admission Attending Provider: Bre Dudley Primary Care Provider: Minda Madden Discharge Orders/Prescriptions Prescriptions: Continued liothyronine 5 mcg tablet 7.5 mcg PO BID loratadine [Allergy Relief (loratadine)] 10 mg tablet 10 mg PO PRN PRN (Reason: Allergy Symptoms) lidocaine-prilocaine 2.5-2.5 % cream 1 applic topical ONCE PRN (Reason: port access) 30 Days Qty: 30 2RF diphenhydramine HCl [ZzzQuil] 25 mg capsule 25 mg PO QHS PRN (Reason: Insomnia) acetaminophen [Tylenol Extra Strength] 500 mg tablet 500 mg PO Q6H PRN (Reason: Pain) Referrals / Follow Up: Mnida Madden MD [Primary Care Provider] - Disposition Disposition (needs filled in before D/C Order can be placed): Home, Self Care
--- NOTE | 2022-06-12 08:35 | RAD_ITS ---
STUDY: X-RAY CHEST REASON FOR EXAM: Female, 76 years old. Port -- pacu TECHNIQUE: Single AP portable view of the chest. COMPARISON: Comparison is made with prior study dated November 22, 2021. FINDINGS: A left-sided Port-A-Cath has been placed with the tip at the junction of the superior vena cava and right atrium. EKG electrodes are seen. Stable mild increased markings at the left lung base suggestive of scarring. There is no demonstrated pleural abnormality. Normal size heart. Normal mediastinum and paul. Normal visualized pulmonary arteries. There is atherosclerotic calcification of the aortic arch with tortuosity. There is a dextroscoliosis of the thoracic spine. Normal visualized ribs, clavicles, and shoulders. Surgical clips are seen in the epigastric region. RAD/Chest 1 View (Portable) IMPRESSION: The tip of the left-sided portacatheter is at the junction of the superior vena cava and right atrium. Electronically Signed: Azael Barnett MD at 8:56 EDT ,
== END 2022-06-12 10:15 | disposition home or self-care (01) ==
LOC: SDC 06:02 → AC 06:02
PROVIDERS: PCP Family Medicine; Referring Provider Surgery; Visit Provider Surgery
PROC: (CPT 36561; principal; 2022-06-12 07:15)
DX: Z45.2 Encounter for adjustment and management of vascular access device (principal); C78.00 Secondary malignant neoplasm of unspecified lung; C78.7 Secondary malignant neoplasm of liver and intrahepatic bile duct; C18.7 Malignant neoplasm of sigmoid colon; I71.20 Thoracic aortic aneurysm, without rupture, unspecified; Z90.5 Acquired absence of kidney; E03.9 Hypothyroidism, unspecified; Z85.528 Personal history of other malignant neoplasm of kidney; T81.31XA Disruption of external operation (surgical) wound, not elsewhere classified, initial encounter
CPT/HCPCS: 36561; 00532; 71045; 77001; J7120; C1788; J2405

== ENCOUNTER → 2022-07-09 | Outpatient (CLI) | payer MEDICARE, SELFPAY ==
--- NOTE | 2022-07-09 09:15 | MRI_ITS ---
STUDY: MRI LUMBAR SPINE WITHOUT CONTRAST REASON FOR EXAM: Female, 76 years old. STENOSIS,RADICULOPATHY. History of RIGHT flank pain, radiating to the RIGHT abdomen and groin. TECHNIQUE: MRI examination lumbar spine fusion protocol including multiplanar multiecho noncontrast imaging. Contrast: No contrast administered. COMPARISON: None FINDINGS: Vertebral bodies and alignment. 1. Vertebral body height is maintained however multilevel disc changes are present throughout the lumbar spine. There is mild to moderate levoscoliotic curvature. Rotary scoliosis also present. 2. There is retrolisthesis of L1 on 2, L2 on 3, and L4 on L5. 3. Heterogeneous marrow signal is present with mild Modic type II changes involving the inferior endplate of L1. 4. No marrow edema or destructive marrow replacement processes. No fractures noted. 5. Paraspinous soft tissue planes have normal appearance. Normal appearance of the muscular fascial planes of the erector spinae. 6. Normal appearance of the sacrum and sacroiliac joints. Intervertebral disks levels. T12-L1: Normal endplates. Normal disc height, hydration and morphology. Normal bilateral facet joints. Normal central canal and bilateral lateral recesses. Normal bilateral intervertebral neural foramina. L1-2: Mild degenerative retrolisthesis of L1 on L2. No disc herniation canal or foraminal narrowing. No evidence of nerve root compression. L2-3: Retrolisthesis of L2 on L3 estimated at approximately 5 mm. Mild deformity of the anterior epidural space. No evidence however of disc herniation canal stenosis or nerve root impingement. Mild crowding of nerve roots in the RIGHT lateral recess. Neural foramina are widely patent. L3-4: Disc desiccation, broad-based disc bulge without evidence of disc herniation or canal stenosis. Facet hypertrophic changes. Mild crowding of nerve roots in the LEFT lateral recess without evidence salvador nerve root impingement. L4-5: Disc desiccation, mild retrolisthesis of L4 and L5. Facet hypertrophic changes are present. No disc herniation or canal stenosis however crowding of nerve roots in the LEFT lateral recess with potential of early LEFT L5 nerve root impingement. L5-S1: Mild disc desiccation, facet hypertrophic changes are present without evidence of disc herniation canal or foraminal narrowing. No evidence of nerve root impingement. Spinal cord: Normal appearance of the spinal cord and conus. Conus is located at L1. Cauda equina has normal appearance. No evidence of cord compression or edema. No intramedullary signal abnormality noted. MRI/Spine Lumbar (Routine) IMPRESSION: 1. Multilevel lumbar spondylosis, levoscoliotic curvature and mild rotary scoliosis also noted. No evidence of fracture or acute destructive bony processes. 2. Degenerative retrolisthesis of L1 on L2, L2 on L3, and to lesser extent L4-L5. 3. No evidence of disc herniation or canal stenosis. 4. Mild narrowing of lateral recesses at multiple levels due to mild retrolisthesis and facet hypertrophic changes most notable at L4-5 with potential impingement of the L5 nerve roots in the LEFT lateral recess. 5. Normal appearance the spinal cord and conus without evidence of compression or abnormal intramedullary signal. Electronically Signed: Hector Magallanes MD at 0:23 EDT ,
== END | disposition home or self-care (01) ==
PROVIDERS: PCP Family Medicine; Referring Provider Anesthesiology Pain Medicine; Visit Provider Anesthesiology Pain Medicine
DX: M48.061 Spinal stenosis, lumbar region without neurogenic claudication (principal); M54.16 Radiculopathy, lumbar region
CPT/HCPCS: 72148

== ENCOUNTER → 2022-08-28 | Outpatient (CLI) | payer MEDICARE, SELFPAY ==
--- NOTE | 2022-08-28 08:02 | CT_ITS ---
ACR Level 3 findings have been noted. An addendum which confirms receipt of the report will follow. STUDY: CT CHEST, ABDOMEN T PELVIS WITH CONTRAST REASON FOR EXAM: Female, 76 years old. F/U COLON CANCER -- IV AND ORAL CONTRAST RADIATION DOSAGE (If Supplied By Facility): CTDIvol = ( 8.9 ) mGy, DLP = ( 463.36 ) mGycm TECHNIQUE: Transaxial imaging was performed following intravenous administration of Oral and amp;amp; IV Readi-CAT and amp;amp; 100mL Isovue-300. Individualized dose optimization techniques were used for this CT. COMPARISON: May 30, 2022 FINDINGS: CHEST There is a stable 3 mm nodule in the right upper lobe axial image 43. There is a stable 3 mm nodule in the right lower lobe axial image 87. There is a stable 4 mm nodule in the right lung apex axial image 18. There is a stable 7 mm nodule in the right lower lobe axial image 72. There is a stable 3 mm nodule in the right lower lobe axial image 72. There is a stable 8 mm nodule in the left lower lobe axial image 69. There is interval development of scarring in the left lower lobe axial image 56. There is a stable 5 mm nodule in the lingula axial image 56. There is a stable 5 mm nodule in the lingula axial image 67. There is no demonstrated pleural abnormality. Normal heart and pericardium. Normal mediastinum. Normal hilar regions. Normal unenhanced pulmonary arteries. There is a stable 6.5 cm aneurysm of the ascending thoracic aorta. There is an expansile lesion involving the right 12th rib posteriorly appearing enlarged from the previous study, now measuring 5.6 cm x 2.9 cm. ABDOMEN There is a grossly stable 6.1 x 6.6 cm heterogeneously enhancing lesion in the right lobe of the liver posteriorly with central hypodensity possibly representing hemangioma. Other entities aren''t excluded. Normal gallbladder and extrahepatic biliary system. Normal spleen. Normal pancreas. Normal bilateral adrenal glands. Patient status post right nephrectomy. Normal left kidney. Normal visualized stomach. Normal small intestine. There is mild thickening of the sigmoid colon. The appendix is visualized and appears normal. Normal abdominal aorta. Normal inferior vena cava. Normal retroperitoneum. Normal abdominal wall. Normal osseous structures. PELVIS Normal urinary bladder. There is no pelvic fluid. There is no pelvic lymphadenopathy or mass lesion. Normal visualized pelvic arteries. Normal abdominal wall. Normal osseous structures. CT/CT Chest, Abd, Pel w/Contrast IMPRESSION: Multiple stable lung nodules. If warranted, PET scanning can be obtained for further evaluation. Enlarging expansile lesion of the right 12th rib. Underlying neoplastic process is a possibility. Thickening of the sigmoid colon. Clinical correlation and direct visualization recommended. Stable enhancing lesion in the right lobe of the liver may represent hemangioma however underlying neoplasm as hard to exclude. Multiphasic CT or MRI imaging can be obtained for further characterization. Stable thoracic ascending aortic aneurysm. Electronically Signed: William Gr, at 9:37 EDT ,
== END | disposition home or self-care (01) ==
LOC: CT 07:59
PROVIDERS: PCP Family Medicine; Referring Provider Internal Medicine Hematology & Oncology; Visit Provider Internal Medicine Hematology & Oncology
DX: C18.7 Malignant neoplasm of sigmoid colon (principal)
CPT/HCPCS: 71260; 74177; Q9967; A4216

== ENCOUNTER → 2022-09-09 | Outpatient (CLI) | payer MEDICARE, SELFPAY ==
--- NOTE | 2022-09-09 10:45 | MRI_ITS ---
STUDY: MRI THORACIC SPINE WITH AND WITHOUT CONTRAST REASON FOR EXAM: Female, 76 years old. eval for spine invasion in lower T spine -- metastatic colon cancer TECHNIQUE: IV 9ml clariscan was administered for the contrast portion of the examination. COMPARISON: CT of the chest, abdomen, and pelvis dated August 28, 2022. MRI of the lumbar spine dated July 09, 2022. FINDINGS: The T1 sequence shows clear fatty hemangiomas of the vertebral bodies at T9, T10, T11, T12, and L1. Predominance of red marrow throughout the osseous structures is likely reflective of the patient''s hematologic status and can be correlated with those values. No fracture or compression deformity is present. A 6.16 x 3.25 cm moderate-sized ovoid malignant mass has infiltrated and replaced the medullary bone of the right posterior 12th rib at its insertion at the costovertebral junction and paraspinal region. The mass protrudes into the T12-L1 intervertebral neural foramen on the right compressing the exiting nerve root. An adjacent malignant infiltrative mass is present in the right lobe of the liver which is better characterized on the recent CT of abdomen and pelvis. Abnormal marrow replacement is present on the right half of the T10 and T11 vertebral bodies with abnormal enhancement on the postcontrast study. A small 7.1 mm enhancing metastatic focus is present in the right posterior aspect of the T11 vertebral body, extending into the pedicle. Infiltrative tumor is also present in the head of the right 11th rib at the costovertebral junction with enhancement and replacement of the central marrow but no complete lysis is seen at the T12 level. A small enhancing metastatic nodules also present in the anterior superior aspect of the T12 vertebral body on the right measuring 1.06 cm in diameter and best seen on image 6/14 series 9. A small enhancing metastatic nodule is also present in the anterior aspect of the T4 vertebral body measuring 9.6 mm in diameter. Normal kyphosis of the thoracic spine. There is no substantial scoliosis. T1-2, T2-3, T3-4, T4-5, T5-6, T6-7, T7-8, T8-9, T9-10, T10-11, T11-12: Normal endplates. Mild multilevel disc desiccation and endplate spurring. Normal central canal and intervertebral neural foramina at the corresponding levels. Normal visualized thoracic cord. Normal conus medullaris that terminates at the T12-L1 level. MRI/Spine Thoracic W/WO Contrast IMPRESSION: 1. A 6.16 x 3.25 cm moderate-sized ovoid malignant mass has infiltrated and replaced the medullary bone of the right posterior 12th rib at its insertion at the costovertebral junction and paraspinal region. The mass protrudes into the T12-L1 intervertebral neural foramen on the right compressing the exiting nerve root. An adjacent malignant infiltrative mass is present in the right lobe of the liver which is better characterized on the recent CT of abdomen and pelvis. 2. Metastatic disease to the T10, T11, T12, and T4 vertebral bodies. 3. A small enhancing metastatic nodule is also present in the anterior aspect of the T4 vertebral body measuring 9.6 mm in diameter. Electronically Signed: Christiano Mejia MD at 10:33 EDT ,
[2022-09-09] MEDS: 0.9 % NaCl (Sterile) Posiflush 10 mL IV (12:00)
== END | disposition home or self-care (01) ==
LOC: MRI 10:22
PROVIDERS: PCP Family Medicine; Referring Provider Student in an Organized Health Care Education/Training Program; Visit Provider Student in an Organized Health Care Education/Training Program
DX: C80.1 Malignant (primary) neoplasm, unspecified (principal)
CPT/HCPCS: 72157; A9575; A4216

== ENCOUNTER → 2022-12-01 | Outpatient (CLI) | payer MEDICARE, SELFPAY ==
--- NOTE | 2022-12-01 08:45 | NM_ITS ---
CLINICAL: 77-year-old female with history of colorectal, renal and endometrial carcinoma. WHOLE BODY 99m Tc MDP RADIONUCLIDE BONE SCINTIGRAPHY COMPARISON: None available FINDINGS: Following the intravenous administration of 25.3 mCi of 99m Tc MDP, whole body bone images reveal: 1. Increased radiopharmaceutical concentration is defined in the right 12th rib. 2. Facilitated uptake is identified in the acromioclavicular and sternoclavicular compartments of both shoulders, the femoral and tibial compartments anteriorly in the midline of the left knee, the fourth-fifth lumbar vertebra anteriorly on the left and right. 3. The remaining skeletal structures are scintigraphically unremarkable with left kidney and urinary bladder activity identified. Enhanced tracer distribution is defined in the bilateral temporal-frontal skull likely representing hyperostosis. NM/Bone Scan Whole Body IMPRESSION: 1. The increase in tracer uptake noted in the right 12th rib may represent neoplastic infiltration. Other etiologies to include metabolic bone disease is another diagnostic consideration. Correlation with plain film radiography may be of benefit. 2. Degenerative arthritis is defined in the bilateral shoulders, left knee, the lumbar spine. Electronically Signed: Hector Mcneill DO at 23:01 EDT ,
[2022-12-01] MEDS: 0.9% Saline Lock 10 ML Syringe IV (09:02)
== END | disposition home or self-care (01) ==
LOC: NM 08:44
PROVIDERS: PCP Family Medicine; Referring Provider Nurse Practitioner Family; Visit Provider Nurse Practitioner Family
DX: C18.7 Malignant neoplasm of sigmoid colon (principal); C79.51 Secondary malignant neoplasm of bone
CPT/HCPCS: 78306; A9503; A4216

== ENCOUNTER → 2022-12-04 | Outpatient (CLI) | payer MEDICARE, SELFPAY ==
--- NOTE | 2022-12-04 14:51 | CT_ITS ---
STUDY: CT CHEST, ABDOMEN T PELVIS WITH CONTRAST REASON FOR EXAM: Female, 77 years old. Known colon CA RADIATION DOSAGE (If Supplied By Facility): CTDIvol = ( 9.29 ) mGy, DLP = ( 504.53 ) mGycm TECHNIQUE: Transaxial imaging was performed following intravenous administration of Oral and amp; IV Readi-CAT and amp; 75mL Isovue-300. Oral contrast also administered, MPR performed Individualized dose optimization techniques were used for this CT. COMPARISON: CT chest from 08/28/2022 FINDINGS: CHEST Lung windows show the lungs to be normally expanded with nonspecific pleural thickening in both hemithoraces. No organized infiltrate, effusion, or suspicious noncalcified mass or nodule. There is a stable 3 mm noncalcified nodule in the left upper lobe on axial image 54 unchanged dating back to 02/12/2022. Normal heart and pericardium. There are calcifications of the coronary arteries. Normal mediastinum. Normal hilar regions. Normal unenhanced pulmonary arteries. There is stable extensive dilatation of the ascending thoracic aorta measuring 6.2 cm. No evidence of dissection descending thoracic aorta tapers normally. Bony structures show degenerative change ABDOMEN Stable likely hemangioma in the inferior right lobe of the liver. There are other subtle hypodensities in the right liver which could represent metastasis. These are also unchanged. Gallbladder is contracted. Normal spleen. Normal pancreas. The right adrenal and kidney have been previously removed. Normal-appearing left adrenal gland and left kidney. Normal visualized stomach. Nondistended fluid-filled small bowel loops noted consistent with ileus. This may be due to retained stool throughout the entirety of the colon. Appendix not visualized. There is diffuse atherosclerotic calcification of the abdominal aorta, without a demonstrated aneurysm. Normal inferior vena cava. Normal retroperitoneum. Normal abdominal wall. There are diffuse degenerative changes of the visualized lumbar spine, and pelvis. PELVIS Bladder distends normally and contains air suggesting recent catheterization. There has been a previous hysterectomy. No suspicious cystic mass or free fluid in the pelvis. There is no pelvic fluid. There is no pelvic lymphadenopathy or mass lesion. Normal visualized pelvic arteries. CT/CT Chest, Abd, Pel w/Contrast IMPRESSION: No acute pulmonary process, no suspicious axillary, mediastinal, or perihilar mass or adenopathy Stable 3 mm noncalcified nodule in the left upper lobe, another 6 month follow-up study could be performed to assess stability Stable aneurysmal dilatation of the ascending thoracic aorta at 6.24 cm. No evidence of dissection Stable likely hemangioma in the inferior right lobe of the liver, there are other subtle hypoattenuated lesions within the liver which may be metastasis. All are unchanged compared to the most recent study Nondistended fluid-filled small bowel loops suggest ileus likely due to retained stool throughout the entirety of the colon. Diffuse atherosclerosis No free intraperitoneal fluid, air, or suspicious adenopathy Degenerative bony changes Electronically Signed: Nayan Silva MD at 14:07 EDT ,
[2022-12-04] MEDS: 0.9 % NaCl (Sterile) Posiflush 10 mL IV (15:00)
== END | disposition home or self-care (01) ==
LOC: CT 14:50
PROVIDERS: PCP Family Medicine; Referring Provider Nurse Practitioner Family; Visit Provider Nurse Practitioner Family
DX: C18.7 Malignant neoplasm of sigmoid colon (principal)
CPT/HCPCS: 71260; 74177; Q9967

== ENCOUNTER → 2023-02-24 | Outpatient (CLI) | payer MEDICARE, SELFPAY ==
--- NOTE | 2023-02-24 07:55 | CT_ITS ---
STUDY: CT CHEST, ABDOMEN T PELVIS WITH CONTRAST REASON FOR EXAM: Female, 77 years old. COLON CA RADIATION DOSAGE (If Supplied By Facility): CTDIvol = ( 8.68 ) mGy, DLP = ( 421.96 ) mGycm TECHNIQUE: Transaxial imaging was performed following intravenous administration of IV 75mL Isovue-300. Multiplanar coronal and sagittal images were reformatted. Individualized dose optimization techniques were used for this CT. COMPARISON: Comparison is made with prior study dated December 04, 2022. FINDINGS: CHEST A left-sided shirley catheter seen with the tip in the superior vena cava. Stable 3 mm noncalcified nodule in the anterior lateral aspect of the left upper lobe as seen on axial image #55. There is no demonstrated pleural abnormality. Minimal stable anterior pericardial thickening. There are calcifications of the coronary arteries. Normal mediastinum. Normal hilar regions. Normal unenhanced pulmonary arteries. Stable aneurysmal dilatation of the ascending thoracic aorta and proximal aortic arch with a transverse dimension of 6.2 cm. No evidence of dissection at this time. There are degenerative changes of the thoracic spine. ABDOMEN Stable heterogeneous enhancement of an abnormality in the posterior aspect of the right lobe of the liver superiorly. There is evidence of a peripheral filling with contrast suggestive of hemangioma. Normal gallbladder and extrahepatic biliary system. Normal spleen. Normal pancreas. Normal bilateral adrenal glands. The patient is status post right nephrectomy and right adrenalectomy. Normal left kidney. Normal visualized stomach. Normal small intestine. Large amount of fecal material is seen in the colon. The appendix is visualized and appears normal. There is diffuse atherosclerotic calcification of the abdominal aorta and its major visceral branches, without a demonstrated aneurysm. Normal inferior vena cava. Normal retroperitoneum. Normal abdominal wall. Once again, there is deformity and heterogeneity of the posterior aspect of the right 12th rib. Metastatic deposit should be ruled out. Mild levoconvex scoliosis of the lumbar spine. PELVIS Normal urinary bladder. The patient is status post hysterectomy. There is no pelvic fluid. There is no pelvic lymphadenopathy or mass lesion. There is diffuse atherosclerotic calcification of the pelvic arteries. CT/CT Chest, Abd, Pel w/Contrast IMPRESSION: Stable examination. Electronically Signed: Azael Barnett MD at 9:51 EST ,
--- OUTSIDE RECORDS SUMMARY | 2023-02-24 08:16 | XMS RPT_ITS | CCD ---
Author Name Unknown Address [address] [place] [address] Organization [facility] Care Team Providers Care Furnace Liner Name Role Phone Unavailable Primary Care Provider Unavailvaleria Menchaca MD, Grady Whitney Primary Care Provider Chano PINON, Aracelis Redman Primary Care Provider Gloria PINON, Desirae Unavailable Chano PINON, Aracelis Redman Primary Care Provider Gloria PINON, Desirae Unavailable MUNGUIA, ESTELA Admitting Unavailable KORNHAUS, R K Primary Care Unavailable MUNGUIA, ESTELA Attending Unavailable MUNGUIA, ESTELA Referring Unavailable KORNHAUS, R K Primary Care Unavailable MITTRA, GENNARO Referring Unavailable MITTRA, GENNARO Attending Unavailable KORNHAUS, R K Primary Care Unavailable KORNHAUS, R K Referring Unavailable JASON HAM Attending Unavailable HORACE MOLINA Attending Unavailable KORNHAUS, R K Primary Care Unavailable JASON HAM Referring Unavailable HORACE MOLINA Attending Unavailable KORNHAUS, R K Primary Care Unavailable JASON HAM Referring Unavailable TERRI LIN Attending Unavailable KORNHAUS, R K Primary Care Unavailable JASPAL CORDON Referring Unavailable KORNHAUS, R K Primary Care Unavailable JASON HAM Referring Unavailable MITTRA, GENNARO Attending Unavailable KORNHAUS, R K Primary Care Unavailable MITTRA, GENNARO Attending Unavailable MITTRA, GENNARO Referring Unavailable KORNHAUS, R K Primary Care Unavailable MITTRA, GENNARO Attending Unavailable MITTRA, GENNARO Referring Unavailable MITTRA, GENNARO Attending Unavailable KORNHAUS, R K Primary Care Unavailable JASON HAM Referring Unavailable KORNHAUS, R K Primary Care Unavailable IWONA DUVAL Attending Unavailable MITGENNARO CAI Referring Unavailable TAMIKO, MARK H Primary Care Unavailable TAMIKO, MARK H Admitting Unavailable TAMIKO, MARK H Attending Unavailable RED MENCHACA MD Consulting Unavailable PROVIDER, UNKNOWN Consulting Unavailable PROVIDER, UNKNOWN Consulting Unavailable PROVIDER, UNKNOWN Consulting Unavailable SOURAV SIMMONS MD Admitting Unavailable SOURAV SIMMONS MD Primary Care Unavailable SOURAV SIMMONS MD Attending Unavailable RED MENCHACA MD Consulting Unavailable PROVIDER, UNKNOWN Consulting Unavailable PROVIDER, UNKNOWN Consulting Unavailable PROVIDER, UNKNOWN Consulting Unavailable DERIC, LISET C Attending Unavailable SOURAV SIMMONS MD Consulting Unavailable SOURAV SIMMONS MD Referring Unavailable LEOS, LISET C Primary Care Unavailable LEOS, LISET C Admitting Unavailable PROVIDER, UNKNOWN Consulting Unavailable PROVIDER, UNKNOWN Consulting Unavailable PROVIDER, UNKNOWN Consulting Unavailable RAMON, ENMA E Primary Care Unavailable RAMON ENMA E Attending Unavailable RAMON ENMA E Admitting Unavailable RED MENCHACA MD Referring Unavailable RED MENCHACA MD Consulting Unavailable PROVIDER, UNKNOWN Consulting Unavailable PROVIDER, UNKNOWN Consulting Unavailable PROVIDER, UNKNOWN Consulting Unavailable SOURAV SIMMONS MD Admitting Unavailable SOURAV SIMMONS MD Primary Care Unavailable SOURAV SIMMONS MD Attending Unavailable RED MENCHACA MD Consulting Unavailable PROVIDER, UNKNOWN Consulting Unavailable PROVIDER, UNKNOWN Consulting Unavailable PROVIDER, UNKNOWN Consulting Unavailable SOURAV SIMMONS MD Consulting Unavailable DESIRAE CASTRO MD Primary Care Unavailvaleria e DESIRAE CASTRO MD Attending UnavailDESIRAE Pierson MD Admitting Unavailabl e PROVIDER, UNKNOWN Consulting Unavailable PROVIDER, UNKNOWN Consulting Unavailable PROVIDER, UNKNOWN Consulting Unavailable SOURAV SIMMONS MD Admitting Unavailable SOURAV SIMMONS MD Primary Care Unavailable SOURAV SIMMONS MD Attending Unavailable RED MENCHACA MD Consulting Unavailable PROVIDER, UNKNOWN Consulting Unavailable PROVIDER, UNKNOWN Consulting Unavailable PROVIDER, UNKNOWN Consulting Unavailable TAMIKO, MARK H Primary Care Unavailable TAMIKO, MARK H Admitting Unavailable TAMIKO, MARK H Attending Unavailable RED MENCHACA MD Consulting Unavailable PROVIDER, UNKNOWN Consulting Unavailable PROVIDER, UNKNOWN Consulting Unavailable PROVIDER, UNKNOWN Consulting Unavailable SOURAV SIMMONS MD Consulting Unavailable LEOS, JEFFY T Admitting Unavailable LEOS, JEFFY T Primary Care Unavailable LEOS, JEFFY T Attending Unavailable PROVIDER, UNKNOWN Consulting Unavailable PROVIDER, UNKNOWN Consulting Unavailable PROVIDER, UNKNOWN Consulting Unavailable SOURAV SIMMONS MD Primary Care Unavailable SOURAV SIMMONS MD Consulting Unavailable SOURAV SIMMONS MD Attending Unavailable SOURAV SIMMONS MD Admitting Unavailable PROVIDER, UNKNOWN Consulting Unavailable PROVIDER, UNKNOWN Consulting Unavailable PROVIDER, UNKNOWN Consulting Unavailable DESIRAE CASTRO MD Primary Care UnavailDESIRAE Pierson MD Attending UnavailDESIRAE Pierson MD Admitting UnavailRED Fuentes MD Consulting Unavailable PROVIDER, UNKNOWN Consulting Unavailable PROVIDER, UNKNOWN Consulting Unavailable PROVIDER, UNKNOWN Consulting Unavailable GRADY MENCHACA Referring Unavailable GRADY MENCHACA Primary Care Unavailable ARMAND CEJA Attending Unavailable Allergies Allergy Classification Reported Allergen(s) Allergy Type Date of Onset Reaction(s) Facility (5 sources) Alendronate; Translations: [ALENDRONATE] Drug Allergy 2 Other: See Comments [facility] (5 sources) Risedronate; Translations: [RISEDRONATE] Drug Allergy 2 Other: See Comments [facility] (6 sources) Alendronate Drug Allergy 2 Pain [facility] (6 sources) Morphine Drug Allergy 2 Hallucination [facility] (6 sources) Risedronate Drug Allergy 2 Pain [facility] (1 source) Alendronate Drug Allergy [facility] (1 source) Morphine Drug Allergy [facility] (1 source) Risedronate Drug Allergy [facility] Medications Current Medications Medication Drug Class(es) Dates Sig (Normalized) Sig (Original) liothyronine sodium 0.005 mg oral tablet (10 sources) l-Triiodothyronine take 0.5 tablet by mouth twice daily in the morning, then take 0.5 tablet by mouth in the evening liothyronine 5 MCG tablet Take 12.5 mcg by mouth 2 times daily. 1 and a half tablets in am , and a half a tablet in evening. 0 Active Completed/Discontinued Medications Medication Drug Class(es) Dates Sig (Normalized) Sig (Original) Acetaminophen (2 sources) Start: 10-30-2021 End: 10-30-2021 take 1 tablet by mouth every six hours as needed acetaminophen (TYLENOL) tablet 650 mg Problems Active Problems Problem Classification Problem Date Documented Da te Episodic/Chronic Cancer of colon (4 sources) Carcinoma of colon; Translations: [Malignant neoplasm of colon, unspecified] Onset: 11-04-2021 Chronic Cancer of other GI organs; peritoneum (6 sources) Carcinoma in situ of digestive organ; Translations: [Carcinoma in situ of digestive organ, unspecified] Onset: 10-04-2021 Chronic Deficiency and other anemia (1 source) Anemia; Translations: [Anemia, unspecified] Episodic Deficiency and other anemia (2 sources) Anemia, unspecified; Translations: [Anemia, unspecified] Onset: 11-04-2021 Episodic Maintenance chemotherapy; radiotherapy (1 source) Patient encounter status; Translations: [Encounter for antineoplastic chemotherapy] Chronic Malignant neoplasm without specification of site (9 sources) Malignant tumor of unknown origin; Translations: [Malignant (primary) neoplasm, unspecified] Onset: 10-21-2021 Chronic Neoplasms of unspecified nature or uncertain behavior (3 sources) Neoplasm of liver; Translations: [Neoplasm of unspecified behavior of digestive system] Onset: 10-04-2021 Episodic Other gastrointestinal disorders (2 sources) Finding of abdomen; Translations: [Right upper quadrant abdominal swelling, mass and lump] Onset: 10-04-2021 Episodic Other gastrointestinal disorders (1 source) Right upper quadrant abdominal swelling, mass and lump; Translations: [Right upper quadrant abdominal swelling, mass and lump] Onset: 10-04-2021 Episodic Other liver diseases (3 sources) Liver mass; Translations: [Hepatomegaly, not elsewhere classified] Onset: 09-30-2021 Episodic Other liver diseases (2 sources) Hepatomegaly, not elsewhere classified; Translations: [Hepatomegaly, not elsewhere classified] Onset: 10-08-2021 Episodic Secondary malignancies (7 sources) Secondary malignant neoplasm of liver; Translations: [Secondary malignant neoplasm of liver and intrahepatic bile duct] Onset: 10-21-2021 Chronic Secondary malignancies (2 sources) Secondary malignant neoplasm of liver and intrahepatic bile duct; Translations: [Secondary malignant neoplasm of liver and intrahepatic bile duct] Onset: 11-04-2021 Chronic Past or Other Problems Problem Classification Problem Date Documented Da te Episodic/Chronic Mood disorders (4 sources) Mood disorders Onset: 10-21-2021 Resolved: 11-04-2021 10-21-2021 Results Test Name Value Interpretation Reference Range Facil ity Vital Signs Date Time Vital Sign Value Performing Clinician Faci lity 11-04-2021 11:16-0400 Body height 156.5 cm Gennaro Dixon MD Work Phone: [facility] 11-04-2021 11:16-0400 Body mass index (BMI) [Ratio] 20.54 kg/m2 Gennaro Dixon MD Work Phone: [facility] 11-04-2021 11:16-0400 Body temperature 98.1 [degF] Gennaro Dixon MD Work Phone: [facility] 11-04-2021 11:16-0400 Body weight 50.3 kg Gennaro Dixon MD Work Phone: [facility] 11-04-2021 11:16-0400 Diastolic blood pressure 63 mm[Hg] Gennaro Dixon MD Work Phone: [facility] 11-04-2021 11:16-0400 Heart rate 109 /min Gennaro Dixon MD Work Phone: [facility] 11-04-2021 11:16-0400 Respiratory rate 20 /min Gennaro Dixon MD Work Phone: [facility] 11-04-2021 11:16-0400 SaO2% (BldA) [Mass fraction] 96 % Gennaro Dixon MD Work Phone: [facility] 11-04-2021 11:16-0400 Systolic blood pressure 129 mm[Hg] Gennaro Dixon MD Work Phone: [facility] 10-30-2021 13:41-0400 Diastolic blood pressure 62 mm[Hg] Estela Munguia MD Work Phone: [facility] 10-30-2021 13:41-0400 Heart rate 97 /min Estela Munguia MD Work Phone: [facility] 10-30-2021 13:41-0400 Respiratory rate 16 /min Estela Munguia MD Work Phone: [facility] 10-30-2021 13:41-0400 SaO2% (BldA) [Mass fraction] 97 % Estela Munguia MD Work Phone: [facility] 10-30-2021 13:41-0400 Systolic blood pressure 131 mm[Hg] Estela Munguia MD Work Phone: [facility] 10-30-2021 13:26-0400 Body temperature 98.8 [degF] Estela Munguia MD Work Phone: [facility] 10-30-2021 11:09-0400 Body height 152.4 cm Estela Munguia MD Work Phone: [facility] 10-30-2021 11:09-0400 Body mass index (BMI) [Ratio] 21.62 kg/m2 Estela Munguia MD Work Phone: [facility] 10-30-2021 11:09-0400 Body weight 50.21 kg Estela Munguia MD Work Phone: [facility] 10-21-2021 14:04-0400 Body height 152.4 cm Gennaro Dixon MD Work Phone: [facility] 10-21-2021 14:04-0400 Body mass index (BMI) [Ratio] 21.85 kg/m2 Gennaro Dixon MD Work Phone: [facility] 10-21-2021 14:04-0400 Body temperature 99.1 [degF] Gennaro Dixon MD Work Phone: [facility] 10-21-2021 14:04-0400 Body weight 50.76 kg Gennaro Dixon MD Work Phone: [facility] Encounters Encounter Date Encounter Type Care Provider Facility Start: 06-16-2022 End: 06-16-2022 Emergency department patient visit LISET C LEOS [facility] Start: 03-21-2022 End: 03-21-2022 ambulatory SOURAV PINON [facility] Start: 03-12-2022 End: 03-12-2022 ambulatory SOURAV PINON [facility] Start: 11-04-2021 ambulatory Aracelis SIMMONS Facility:[facility] Start: 11-04-2021 End: 11-04-2021 Office outpatient visit 40 minutes Gennaro Dixon MD Work Phone: Division of Medical Oncology Procedures Date Procedure Procedure Detail Performing Clinician Start: 10-28-[address] atten uation skull base mid-thigh Gennaro Dixon MD Work Phone: Start: 10-28-2021 Glucose measurement, blood Gennaro Dixon MD Work Phone: Start: 10-21-2021 Albumin serum plasma /whole blood Gennaro Dixon MD Work Phone: Start: 10-21-2021 CBC AND ELECTRONIC DIFF Gennaro Dixon MD Work Phone: Start: 10-21-2021 Complete blood count with white cell differential, automated Gennaro Dixon MD Work Phone: Start: 10-08-2021 Biopsy liver needle percutaneous Marlen Patel [employer]ADLE REPAIRMAN-[employer]DER[employer] SUPERVISOR Work Phone: Start: 10-08-2021 GENERAL PROCEDURE Scott Lin MD Work Phone: Start: 10-08-2021 End: 10-08-2021 Blood count complete automated Leonela Villegas LADLE REPAIRMAN-UNDERGROUND SUPERVISOR Work Phone: Start: 09-03-2021 Urinalysis MARK QAD IR Plan of Treatment Date Care Activity Detail Author Start: 02-19-2028 Tetanus vaccination TETANUS [facility] Start: 02-19-2028 Urine microalbumin profile DTAP,TDAP,TD (2 - Td or Tdap) [facility] Start: 11-21-2021 End: 11-21-2021 Patient encounter procedure 11/21/2021 Appointment Endoscopy Kuldeep Andersen MD [address] [place] [address] [facility] Start: 11-04-2021 End: 11-04-2021 ambulatory 11/04/2021 Infusion Visit Chemotherapy Gennaro Dixon MD [address] [place] [address] [place] [address] [facility] Start: 11-04-2021 End: 11-04-2021 Clinical Support Encounter Clinical Lab Sharon Okeefe Start: 10-30-2021 End: 10-30-2021 Admission to same day surgery center 10/30/2021 Surgery Interventional Radiology [facility], Sharon Allen MD [address] [place] [address] INSERTION CVC TUNNELED W/ PORT PUMP Interventional Radiology Lab Immunizations Immunization Date Immunization Notes Care Provider Fa cili 05-07-2020 COVID-19 vaccine (UNSPECIFIED) Cesar Hall MD Work Phone: [facility] 04-10-2020 COVID-19 vaccine (UNSPECIFIED) Cesar Hall MD Work Phone: [facility] 01-02-2020 influenza virus vaccine, unspecified formulation Jason Ham MD, PhD, MPH Work Phone: [facility] 02-18-2018 tetanus toxoid, redu clifton diphtheria toxoid, and acellular pertussis vaccine, adsorbed Cesar Hall MD Work Phone: [facility] 08-29-2011 zoster vaccine recombinant Cesar Hall MD Work Phone: [facility] 08-29-2011 zoster vaccine, unspecified formulation Gennaro Dixon MD Work Phone: [facility] 11-22-2008 pneumococcal conjuga te vaccine, 13 valent Cesar Hall MD Work Phone: [facility] 02-27-2006 pneumococcal conjuga te vaccine, 13 kayli Hall MD Work Phone: [facility] Payers Date Payer Category Payer Medicare [id number] 2021 Medicare [id number] 1945 Unknown [id number] 2.16. [id number] 1945 Unknown [id number] 2.16. 840.1.281554.3.579.2.594 1945 Unknown [id number] 2.16. 840.1.405304.3.579.2.594 1945 Unknown [id number] 2.16. 840.1.969199.3.579.2.594 1943 Unknown [id number] 2.16. 840.1.365647.3.579.2.594 1943 Unknown [id number] 2.16. 840.1.906558.3.579.2.594 1943 Unknown [id number] 2.16. 840.1.092957.3.579.2.594 1943 Unknown [id number] 2.16. 840.1.504688.3.579.2.594 1943 Unknown [id number] 2.16. 840.1.224120.3.579.2.594 1943 Unknown [id number] 2.16. 840.1.060356.3.579.2.594 1943 Unknown [id number] 2.16. 840.1.558083.3.579.2.594 1943 Unknown [id number] 2.16.84 0.1.074911.3.579.2.651 1943 Unknown [id number] 2.16.84 0.1.525733.3.579.2.651 1943 Unknown [id number] 2.16.84 0.1.657480.3.579.2.651 1943 Unknown [id number] 2.16.84 0.1.601074.3.579.2.651 1943 Unknown [id number] 2.16.84 0.1.736224.3.579.2.651 1943 Unknown [id number] 2.16.84 0.1.204427.3.579.2.651 1943 Unknown [id number] 2.16.84 0.1.742805.3.579.2.651 1943 Unknown [id number] 2.16.84 0.1.437543.3.579.2.651 1943 Unknown [id number] 2.16.84 0.1.477496.3.579.2.65 1943 Unknown [id number] 2.16.84 0.1.712032.3.579.2.651 1943 Unknown [id number] 2.16.84 0.1.301949.3.579.2.651 Social History Date Type Detail Facility Tobacco smoking status NVIS Tobacco smoking consumption unknown [facility] Start: 1945 Sex Assigned At Not on file [employer] Work Phone: Start: 09-26-2021 End: 09-30-2021 Tobacco smoking status NVIS Never smoked tobacco [facility] Start: 09-19-2021 End: 09-26-2021 Alcohol intake Current non-drinker of alcohol (finding) [facility] Start: 09-26-2021 End: 09-30-2021 Tobacco use and exposure Smokeless tobacco non-user [facility] Start: 09-16-2021 End: 09-26-2021 Exposure to SARS-CoV-2 (event) Not sure [facility] Start: 09-30-2021 End: 11-04-2021 Alcohol intake Ex-drinker (finding) [facility] Medical Equipment Procedure Code Equipment Code Equipment Origin al Text Equipment Identifier Dates Port Powerport I sp Mri Airguard 9.6fr 1 Lumen Attachable - [id number] , [id number] [facility] Start: 10-30-2021 Clinical Notes 06-09-2021 to 11-04-2021 Anupama Ceja RN - 11/04/2021 11:00 AM Reva Duval APRN-ERICA - 11/04/2021 11:00 AM Hernando Dixon MD - 11/04/2021 11:00 AM EDTPatient InstructionsAttachmentsDischarge InstructionsAttachments Note Date & Type Note Facility 11-04-2021 History of Present illness Narrative Clinic to Infusion Handoff Report Report called to aircraft steel fabricator and report given to Chemo RN. 20% dose reduction of FOLFIRI. S Patient coming from Exam to Infusion for treatment. B Clinic Nurse reviewed the following. Discussed abnormal's with aircraft steel fabricator. Allergies Medications Labs Vital Signs Validated the following are signed/documented Chemotherapy Plan ECOG/Toxicity OK toTreat Blood Product Infusion/Type & Cross/Consents A Reviewed patient assessment and outstanding items. PIV / Port / PICC R Patient has AVS, completed check out, and awaiting treatment Anupama Ceja RN Images from the original note were not included. GI MEDICAL ONCOLOGY CLINIC NOTE Date: 11/04/2021 Patient ID: Mackenzie Toledo is a 76 y.o. female Attending Physician: Dr. Dixon CHIEF COMPLAINT Chief Complaint Patient presents with Follow-up Metastatic colon cancer to liver [C18.9, C78.7] INTERVAL HISTORY Mrs. Toledo presents today in follow up to start treatment on FOLFIRI. She's still very weak, fatigued, spends a lot of time resting. She reports poor appetite, forcing herself to eat. Weight is stable. RUQ abdominal pain controlled with ibuprofen. Bowels are moving ok. Occasional nausea, no vomiting. She reports low grade fevers in the afternoon--this has been ongoing for months and what led to her cancer diagnosis. CURRENT THERAPY Starting FOLFIRI today CANCER HISTORY Mackenzie Toledo is a 75 y.o. with past medical history of renal cell carcinoma status post nephrectomy 1996, hypothyroidism, and fatty liver disease. She developed fevers of unknown origin which prompted further evaluation with CT imaging of the c/a/p. CT chest on 09/13/21 showed 1 cm nodule and 6cm ascending thoracic aortic aneurysm, and abdominal CT showed large 11cm right lobe liver mass. Patient was evaluated by surgical oncology here who recommended tumor marker testing, liver biopsy, vascular surgery referral, and med onc referral. Liver biopsy on 10/08/21 showed metastatic adenocarcinoma (pMMR), consistent with colorectal origin. Vascular surgery deferred surgery given overall risk and cancer diagnosis. MOST RECENT IMAGING NUC PET OTHER Result Date: 10/28/2021 EXAM: NUC PET OTHER, 10/28/2021 IMPRESSION: 1. Intense hypermetabolic mass lesion involving the sigmoid colon, concerning for primary malignancy. 2. Large heterogeneous hypermetabolic lesion involving majority of the right hepatic lobe, compatible with known metastasis. 3. Status post the right nephrectomy. There is apparent discrete hypermetabolic focus in the nephrectomy site along the posterior right abdominal wall adjacent to the right 12th rib, concerning for malignant spread 4. Hypermetabolic nodules in the anterior left upper lobe and in the superior medial left lower lobe, concerning for metastatic disease. 5. Mild hypermetabolic lymph nodes in the supraclavicular, mediastinal and bilateral hilar regions are indeterminate, although metastatic disease cannot be excluded. PRIOR TREATMENT none REVIEW OF SYSTEMS Balance of complete review of systems is negative. Past medical, surgical, family, and social histories as well as medications and allergies were all reviewed per RN charting in EMR. PHYSICAL EXAM BP 129/63 Pulse 109 Temp 98.1 F (36.7 C) (Oral) Resp 20 Ht 1.565 m (5' 1.61 ) Wt 50.3 kg (110 lb 14.4 oz) SpO2 96% BMI 20.54 kg/m Smoking Status Never Smoker APPEARANCE: Alert and oriented, well appearing, nontoxic, in no acute distress. EYES:PERRLA, nonicteric. HEENT: Head atraumatic, normocephalic. Oral cavity with moist mucous membranes, no lesions or exudates. NECK: Supple with no cervical, supraclavicular, infraclavicular lymmphadenopathy. RESPIRATORY: Lungs are clear to auscultation, no rales, wheezes or rhonchi. CARDIOVASCULAR: Heart rate and rhythm regular. ABDOMEN: Soft, nontender, nondistended, without palpable masses. Normoactive bowel sounds. No hepatosplenomegaly. LYMPHATICS: No axillary or inguinal lymphadenopathy. MUSCULOSKELETAL: Extremities warm, well perfused, without edema. Positive distal pulses. NEUROLOGIC: No focal deficits. SKIN: Skin warm and dry with normal skin turgor. No rash or jaundice appreciated. LABORATORY CBC Lab Results Component Value Date WBC 9.52 11/04/2021 HGB 9.2 (L) 11/04/2021 HCT 28.6 (L) 11/04/2021 PLATELET 381 11/04/2021 MCV 80.6 11/04/2021 EDIF Lab Results Component Value Date RBCDISTRIBU 17.1 (H) 11/04/2021 GRNLOCYT 80.9 11/04/2021 LYMPHOCYT 8.3 11/04/2021 MONOCYTELEC 8.9 11/04/2021 EOSINOPHILS 0.6 11/04/2021 BASOPHILS 0.4 11/04/2021 LYMPHOCYTABS 0.79 (L) 11/04/2021 EOSINOPHLABS 0.06 11/04/2021 PLATELET 381 11/04/2021 MPV 10.0 11/04/2021 Lab Results Component Value Date SODIUM 136 11/04/2021 POTASSIUM 4.3 11/04/2021 CHLORIDE 103 11/04/2021 CO2 24 11/04/2021 BUN 18 11/04/2021 CREATSERUM 0.80 11/04/2021 Lab Results Component Value Date ALT 31 11/04/2021 AST 46 (H) 11/04/2021 ALKPHOS 265 (H) 11/04/2021 BILITOTAL 0.6 11/04/2021 BILIDIRECT 0.2 11/04/2021 Lab Results Component Value Date CEA 965.7 (H) 11/04/2021 CEA 1,217.9 (H) 10/04/2021 CA199 654.55 (H) 11/04/2021 CA199 633.49 (H) 10/04/2021 NGS: Tempus Tempus XF Tempus XT-pending IMPRESSION 76 yo female with hx of RCC s/p nephrectomy and a recent diagnosis of 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 She is starting treatment on FOLFIRI today Ascending aortic aneurysm; 6.3 cm in size. Not a surgical candidate given active cancer diagnosis. Weakness/fatigue/weight loss Cancer pain; controlled Tumor fevers Anemia Performance Status: 2 PLAN We reviewed PET scan results with the patient and family. There was a hypermetabolic sigmoid colon mass so we will cancel the colonoscopy. We will start FOLFIRI today. Will dose reduce by 20% to assess tolerance. She has a KRAS mutation, but will not give Avastin d/t large aneurysm. She has anti-emetics on hand. Patient would like to get treated closer to home as travelling is a burden for her. We will send a referral to [facility]. Will arrange follow up in 2 weeks in case she doesn't get in, but can cancel if she gets established locally. Start PO iron supplement MISTI Tenorio Images from the original note were not included. Attending Attestation: Date of Visit: 11/20/2021 I have seen and examined this patient independently of the nurse practitioner. I saw and evaluated the patient with MISTI Tenorio I provided a substantive portion of the care for this patient. I personally performed all aspects of the medical decision making for this encounter. The nurse practitioner and I spoke with the patient and provided written and verbal instructions for the patient. The progress note has been reviewed and agree with summary, assessment and plan as described. Follow-up arrangements were made prior to the patient being discharged from the clinic. Mackenzie Toledo is a 76 y.o. 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 She is here today with family members to initiate FOLFIRI. She indicated feeling weaker and more fatigued, now requiring assistance for showering and other ADL's. She has persistent nausea that is worse in the morning. Appetite is diminished. Endorses worsening SOB. New onset of an intermittent productive cough of clear sputum in the morning for the past 2 weeks. Notes associated vomiting due to excessive phlegm. Hx of allergic rhinitis, takes half tablet of Claritin daily for the past several years. Denies acid reflux. Oncology History: Mrs. Toledo's oncology history is briefly summarized as follows: 08/19/21: Outside abdominal US demonstrated a circumscribed heterogeneous mass in the right hepatic lobe that measured 11 x 9 x 11 cm. 09/13/21: CT abdomen w/ contrast at OSH demonstrated hepatomegaly with steatosis. A heterogeneous mass in the right hepatic lobe that measured 10.8 x 11.2 x 8.0 cm with mild peripheral enhancement. Differential diagnosis of HCC versus peripheral intrahepatic cholangiocarcinoma 10/04/21: CEA: 1,217.9. 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 10/21/21: [facility] NGS of tumor specimen pending. Liquid (blood) biopsy revealed 10/28/21: FDG PET demonstrated an intense hypermetabolic mass in the sigmoid colon (max SUV 23.0) suggestive of primary malignancy. Large heterogeneous lesion involving the right hepatic lobe (max SUV: 20.1) consistent with known metastasis. Assessment: Independently reviewed FDG PET performed on 10/28/21 which demonstrated intense hypermetabolic uptake in the left side of the sigmoid colon (max SUV: 23.0) suggestive of primary tumor. Hypermetabolic uptake involving the right hepatic lobe (max SUV: 20.1) consistent with known metastasis, discrete uptake in the nephrectomy site along the right abdominal wall adjacent to the right 12th rib, nodules in the anterior left upper lobe and superior medial left lower lobe, and mild uptake in several lymph nodes (supraclavicular, mediastinal, and bilateral hilar). Labs reviewed, showing anemia. Suspect iron deficiency. iron studies to confirm. In the meantime, recommend patient start taking oral iron every other day to reduce the risk of constipation. Start C1D1 FOLFIRI today Will forgo Avastin given ascending thoracic aortic aneurysm and risk for rupture. Tentative plan to schedule next dose of chemo in 2 weeks; however, she can cancel if she were to establish with local medical oncologist. Referral to med/onc locally to transition care closer to home in [place], [place] Plan: -OK for modified FOLFIRI (DR 20% of standard dose due to age and PS) today. Can increase dose to full dose as tolerated. She has a KRAS mutation. However will not give Avastin due to large aortic aneurysm and risk of rupture. - Since PET/CT shows an obvious colon primary, will cancel the colonoscopy. -Check iron labs -Start taking oral iron every other day -Try eating small, frequent meals throughout the day. -[facility] NGS testing of tumor / tissue pending. -Referral to medical oncology locally to transition care. Will arrange follow up in 2 weeks in case she doesn't get in, but can cancel if she gets established locally. Documented by Afsaneh brown, for Dr. Gennaro Dixon on 11/04/2021 at 1:46 PM. All medical record entries made by the stephanie were at my direction and personally dictated by me, Gennaro Dixon MD. I have reviewed and edited the chart and agree that the record accurately reflects my personal performance of the history, physical exam, assessment and plan. I have also personally directed, reviewed, and agree with the discharge instructions. Gennaro Dixon MD [employer] teacher Division of Medical Oncology GI Malignancies Section documented in this encounter [facility] 11-04-2021 Instructions Anupama Ceja RN - 11/04/2021 11:00 AM EDT OK for treatment today. (20% dose-reduction) Please return to clinic for an in person visit with Dr. Dixon in 2 weeks with RN labs prior and treatment to follow. Scans? no Referrals placed to: Local Medical Oncology to transition care. Start taking oral iron every other day. The following attachments cannot be sent through Care Everywhere.Iron in Your Diet ([facility]) (Italian)documented in this encounter [facility] 10-31-2021 Note PROCEDURE: IR MEDIPO RT PLACEMENT (10/30/2021 13:26 PM) CLINICAL INDICATIONS: 75-year-old female needing long-term central venous access for treatment of recently diagnosed metastatic disease/neoplastic process. COMPARISON: Chest CT from August 19, 2021 and PET/CT from October 28, 2021. CONSENT: Following discussion of the risks, benefits, and alternatives of the procedure, written informed consent was obtained. SEDATION: I performed Moderate Sedation which included the presence of a nurse that assisted in monitoring the patient's level of consciousness and physiologic status. After administration of sedative medication(s), I spent 41 minutes of continuous [id number]-ba-fyld time with the patient. PROCEDURE MEDICATIONS: 12:40 PM 10/30/21 midazolam (VERSED) injection 0-10 mg 0.5 mg Given Rate: 0 Route: Intravenous; 12:40 PM 10/30/21 fentaNYL (SUBLIMAZE) injection 0-300 mcg 25 mcg Given Rate: 0 Route: Intravenous; 12:45 PM 10/30/21 fentaNYL (SUBLIMAZE) injection 0-300 mcg 25 mcg Given Rate: 0 Route: Intravenous; 12:46 PM 10/30/21 midazolam (VERSED) injection 0-10 mg 0.5 mg Given Rate: 0 Route: Intravenous; 12:59 PM 10/30/21 fentaNYL (SUBLIMAZE) injection 0-300 mcg 25 mcg Given Rate: 0 Route: Intravenous; 12:59 PM 10/30/21 midazolam (VERSED) injection 0-10 mg 0.5 mg Given Rate: 0 Route: Intravenous; 1:01 PM 10/30/21 lidocaine-epinephrine 2 %-[id number] injection 0-20 mL 9 mL Given Rate: 0 Route: Infiltration; 1:05 PM 10/30/21 fentaNYL (SUBLIMAZE) injection 0-300 mcg 25 mcg Given Rate: 0 Route: Intravenous; 1:05 PM 10/30/21 midazolam (VERSED) injection 0-10 mg 0.5 mg Given Rate: 0 Route: Intravenous; 1:06 PM 10/30/21 heparin 100 units/mL flush injection 500 Units 5 mL Given Rate: 0 Route: Intracatheter; REVENUE STAMP CUTTER(S): Sharon Orta II, MD (Attending); Salbador Pereyra MD FLUOROSCOPY TIME: 0.8 minutes COMPLICATIONS: None immediate TECHNIQUE: Procedure Performed: 1. Ultrasound-guided access of the patent right internal jugular vein. 2. Placement of a single lumen subcutaneous port under fluoroscopic guidance. Position: The patient was transferred to the IR laboratory and positioned supine on the procedure table. The right neck was prepared and draped using maximum sterile barrier technique. This consisted of cap, mask, hand hygiene, sterile gown, sterile gloves, 2% chlorhexidine solution for cutaneous antisepsis, and occlusive sterile draping of the field. Time Out: A time out was performed prior to the procedure in the presence of the patient and all personnel involved in the case. The patient's identity, procedure type, procedure side/site, and allergies were verified. Procedure Description: After infiltration of the skin and subcutaneous tissue over the target vessel with lidocaine, the patent vessel was accessed under direct sterile sonographic guidance. An image of the target vessel was saved to the image archive system. The access was secured. Next, an appropriate port pocket and catheter tunnel site were selected, and the areas were infiltrated with lidocaine. A skin incision was made, and the subcutaneous pocket was created using blunt dissection. The pocket was irrigated with antibiotic solution. The chest wall tunnel was then created, and the catheter was carried through the tunnel. A peel-away sheath was placed over a wire at the venotomy site, and the catheter was placed via the peel-away sheath. The tip of the catheter was positioned under fluoroscopic guidance, and the catheter was cut to the appropriate length outside of the patient. The catheter was then connected to the port hub, and the port was placed into the pocket in standard fashion. The port was tested and could be aspirated and flushed freely. It was dwelled with the appropriate solution. The port incision was then closed using deep dermal interrupted technique followed by the application of Dermabond to the incision site and venotomy site. Both areas were then cleaned and dressed appropriately. FINDINGS: The catheter tip is positioned in the right atrium. IMPRESSION: 1. Placement of a single lumen subcutaneous port under sonographic and fluoroscopic guidance via the patent right internal jugular vein. 2. The port is ready for use. Sharon Orta II, MD was in the room and participated during all horton portions of this procedure. I personally viewed and interpreted these images and I have reviewed and approved this report. Flowsheet Row Most Recent Value Fluoro time: 0.8 Fluoro time measurement: minutes Rad Dose: 1 Rad Dose Measurement: mGy Thumb Reading Event Details User 12:30 PM 10/30/21 Timeout: Sign-in Signed by Lavonne Diego RN at 10/30/2021 12:42 PM LK 12:40 PM 10/30/21 midazolam (VERSED) injection 0-10 mg 1 mg Canceled Entry Rate: 0 Route: Intravenous LK 12:40 PM 10/30/21 midazolam (VERSED) injection 0-10 mg (more content not included)... [facility] 10-30-2021 Note Formatting of this n ote might be different from the original. 1325: Patient arrives in [facility] Phase 2 Interventional Radiology from Interventional Radiology Procedure Suite with side rails up x2 with HOB >30 degrees, accompanied by IR Nurse. Patient placed on monitors, VSS. Patient assessed, see assessment. 1340: Discharge instructions explained to patient and family/friend. All questions answered. 1425: Dr. Orta and Dr. Lara pagevibha Toledo pt getting ready to leave but is having spontaneous full body tremors. pt said this happened when she had per liver bx a couple weeks ago. [id number] Dr. Daniel Pereyra at bedside, pt okay for discharge per Dr. Daniel Pereyra 1455: Patient meets Interventional Radiology sedation discharge criteria and discharged per MD order to home. Patient taken by wheelchair by Jia to awaiting car. All belongings gathered with patient. Family/friend to drive patient home and care for patient 6 hours post-procedure. [facility] 10-30-2021 Miscellaneous Notes 1325: Patient arrives in [facility] 2 Interventional Radiology from Interventional Radiology Procedure Suite with side rails up x2 with HOB >30 degrees, accompanied by IR Nurse. Patient placed on monitors, VSS. Patient assessed, see assessment. 1340: Discharge instructions explained to patient and family/friend. All questions answered. 1425: Dr. Orta and Dr. Lara pagevibha Toledo pt getting ready to leave but is having spontaneous full body tremors. pt said this happened when she had per liver bx a couple weeks ago. [id number] Dr. Daniel Pereyra at bedside, pt okay for discharge per Dr. Daniel Pereyra 1455: Patient meets Interventional Radiology sedation discharge criteria and discharged per MD order to home. Patient taken by wheelchair by Jia to awaiting car. All belongings gathered with patient. Family/friend to drive patient home and care for patient 6 hours post-procedure. Interventional Radiology procedure completed with IR Attending MD Orta / Dr. Pereyra of right sided single lumen power port placement. Single lumen power port aspirated blood, flushed with hep saline, and then dwelled with 5 ml of heparin per protocol. Pt tolerated procedure with local numbing agent and IV sedation medications. Pt to travel to [facility] after phase I recovery. Post procedures orders in place including line clearance okay for use. documented in this encounter [facility] 10-30-2021 Note Formatting of this n ote might be different from the original. Interventional Radiology procedure completed with IR Attending MD Orta / Dr. Pereyra of right sided single lumen power port placement. Single lumen power port aspirated blood, flushed with hep saline, and then dwelled with 5 ml of heparin per protocol. Pt tolerated procedure with local numbing agent and IV sedation medications. Pt to travel to [facility] after phase I recovery. Post procedures orders in place including line clearance okay for use. [facility] 10-30-2021 Hospital Discharge instructions Lucinda Escalante APRN-UNDERGROUND SUPERVISOR - 10/30/2021 11:17 AM EDT Home Care after Sedation You have been given medicines during your procedure that might make you sleepy. To prevent problems: 1. Rest for the remainder of the day. You should have someone drive you home and be available for the next [address] 3. Do not drink alcoholic beverages today. 4. Do not make any important business or legally binding decisions today. 5. Do not work around the stove, machinery or power equipment today. 6. The medicines used for sedation may make you feel nauseated. Start with clear liquids, which is anything that you can see through such as tea, jello, broth and ara brayden. As you feel better you may add soft foods such as pudding and ice cream. When you no longer feel nauseated you may try your normal diet. You should be back to eating your normal meals after 24 hours. What to Expect After a Port is Put In You may have some bruising, swelling and tenderness where the port was put in. These symptoms should go away after 1 to 2 days. You may have some mild discomfort in the area where the port was placed. Talk to your doctor about what you can do to help with any pain or soreness. How to Care for Your Incisions Your incisions should heal in about 7 to 10 days. You Will Need To Leave The Gauze Dressing On For 48 hours after the port is placed, then you may remove the dressing. If Your Wound Was Closed With Steri-Strips (small tape strips) If you have Steri-Strips do not remove them. They will fall off on their own in about 10 to 14 days. Keep the incision areas clean, dry and open to the air until they heal. If you have a small amount of drainage from an incision, put on a new, sterile 4 x 4 inch gauze dressing. Change the dressing every 24 hours. Leave the dressing off when the drainage stops. You may shower 2 days after your port was placed. Follow the instructions below when you plan to take a shower to keep the incision areas dry if you have Steri Strips: -Carefully cover both incisions with plastic wrap (Saran Wrap or [id number]). If you use Izisk-R-Raha, be sure to have a gauze pad over the steri-strip tapes so the Dzsvc-u-Gkat does not pull the steri-strips off. - Use tape to seal all around the edges, so water does not get under the plastic wrap. - After your shower, remove the plastic wrap and gently pat the incisions dry. - Please continue this process until Steri Strips fall off or wound heals. If Your Wound Was Closed with Dermabond (glue): Your doctor used special skin glue called Dermabond to hold your wound together instead of using stitches, steri-strips or sayra. The glue film will loosen from your skin on its own as the wound heals. Follow these care guidelines if Dermabond (glue) was used during implantation: Keep the wound dry. Do not pick, scratch or rub the glue on the wound, so it does not loosen before the wound heals. Do not soak your wound in water until the glue film falls off. Avoid swimming or using a hot tub while the glue is in place. When you shower or bathe, let water run over the wound but do not rub. It is okay to get the Dermabond wet in the shower. Pat the wound gently with a soft towel to dry. Avoid direct sunlight to the wound and do not use tanning beds or lamps with the glue film in place. Do not apply any cream, lotion or ointment to the skin near the wound. It could loosen the glue before the wound heals. Do not use petroleum based ointments over the Dermabond-they will dissolve Dermabond. Do not apply any tape, sticky dressing, alcohol or Chloraprep to the glue site for the first 7 to 10 days. These could loosen the glue. Activity Guidelines After Port Placement For about 2 weeks after your port is placed, you will need to hold off (limit) some activities while your incisions are healing. Here are precautions you will need to follow: Do not do any strenuous exercises. Do not do activities or exercises that involve reaching or stretching your chest and neck areas. Do not lift anything heavier than 10 pounds (a gallon of milk is about 8lbs). Talk to your doctor or nurse about when you can return to your normal activities. Note: Do not play contact sports while you have a port. Care and Use of Your Port A port can stay in place as long as you need it and it is working well. This can be for several months to a year or longer. After your procedure, you will get a manufacturers patient identification card. This card gives details on the type of port that was put in. Keep this card with you at all times. Bring it with you to your treatments and doctor visits so your health care team knows you have a port. Your port should be flushed with a fluid after each time it is used. If your port is not being used, it needs to be flushed every four weeks. This keeps it clear and open. If you have more than one port opening, each one should be flushed. To reduce the risk of infection, during all inpatient hospital admissions, you will be required to bathe daily with chlorhexidine. Sterile Technique should always be used when your port is accessed. When your port is accessed a special non-coring needle called a Schreer Needle will be inserted. This type of needle has a 90-degree angle. Do not let anyone use any other type of needle in your port. If you have a special type of port, such as a power port, tell your nurse before they access and use the port. A power port may be used for special radiology contrast dye injections during radiology tests such as a CT scan. A power port requires a special type of needle to be used when accessing the port. When to Call Your Doctor or Medical Team Shortness of breath Dizziness Increased bleeding or drainage from your incisions Fever of 100.4 degrees Fahrenheit (38 degrees Celsius) or higher More redness at your incision Increased pain, bruising, tenderness on the same side the port was placed Swelling of the face, neck, chest or arm on the same side where the port was put in Any other problems with your port Interventional Radiology Contact Information If you have questions or concerns, please call Interventional Radiology at documented in this encounter [facility] 10-30-2021 History and physical note Interventional Radiology Pre Procedure H&P Referring Provider Gennaro Dixon MD Chief Complaint- Powerport placement Procedure- (Dr. Orta) Single lumen Powerport placement Indication for Procedure- Adenocarcinoma with liver metastasis requiring IV access for chemotherapy Previous CVC Access- None Code Status- Full Past Medical History: Diagnosis Date Ascending aortic aneurysm 2019 History of kidney cancer Hypothyroidism Liver mass Past Surgical History: Procedure Laterality Date HYSTERECTOMY 1997 NEPHRECTOMY Right Social History Tobacco Use Smoking status: Never Smoker Smokeless tobacco: Never Used Substance Use Topics Alcohol use: Not Currently Drug use: Not Currently Allergies Allergies Allergen Reactions Actonel [Risedronate] Pain Joint pain Fosamax [Alendronate] Pain Joint pain Morphine Hallucination Medications Prior to Admission Medication Sig Dispense Refill Last Dose liothyronine 5 MCG tablet Take 12.5 mcg by mouth 2 times daily. 1 and a half tablets in am , and a half a tablet in evening. loratadine 10 MG tablet Take 5 mg by mouth daily. Review of Systems Denies the following: Arrhythmias, bleeding disorders, asthma, emphysema, MAR, seizure disorder, HTN, DM Denies previous problems with sedation or topical anesthetics Denies problems lying flat Gen - denies fevers or antibiotic therapy Cardiovascular - denies CP or palpitations Respiratory - Chronic SOB Gastrointestinal - denies nausea or vomiting; denies abdominal pain Renal - denies dysuria, hematuria or flank pain Neuromuscular - denies neuropathy; bilateral lower extremity weakness. Physical Exam Blood pressure 137/64, pulse 97, temperature 98 F (36.7 C), temperature source Oral, resp. rate 16, height 1.524 m (5'), weight 50.2 kg (110 lb 11.2 oz). General: Alert and oriented; Cardio: S1S2 RRR Lungs: Clear to auscultation bilaterally Neurological: No focal deficits Skin: [place], warm and dry Laboratory Data Lab Results Component Value Date/Time PLATELET 426 (H) 10/21/2021 04:27 PM HGB 10.7 (L) 10/21/2021 04:27 PM No results found for: INR, PT Impression and Plan 1. Adenocarcinoma with liver metastasis requiring IV access for chemotherapy-To IR lab for placement of a Single lumen Powerport. Education regarding the procedure provided. 2. Known AAA with recent elevated cardiac enzymes on 09/28/21. Presented to [place] ED and stat CT was completed and clear for any acute dissection. Following closely with cardiology (report available via care everywhere). Lucinda Escaalnte APRN-ERICA 10/30/2021 11:13 AM [facility] Work Phone: 10-30-2021 History and physical note Interventional Radiology Pre Procedure H&P Referring Provider Gennaro Dixon MD Chief Complaint- Powerport placement Procedure- (Dr. Orta) Single lumen Powerport placement Indication for Procedure- Adenocarcinoma with liver metastasis requiring IV access for chemotherapy Previous CVC Access- None Code Status- Full Past Medical History: Diagnosis Date Ascending aortic aneurysm 2019 History of kidney cancer Hypothyroidism Liver mass Past Surgical History: Procedure Laterality Date HYSTERECTOMY 1997 NEPHRECTOMY Right Social History Tobacco Use Smoking status: Never Smoker Smokeless tobacco: Never Used Substance Use Topics Alcohol use: Not Currently Drug use: Not Currently Allergies Allergies Allergen Reactions Actonel [Risedronate] Pain Joint pain Fosamax [Alendronate] Pain Joint pain Morphine Hallucination Medications Prior to Admission Medication Sig Dispense Refill Last Dose liothyronine 5 MCG tablet Take 12.5 mcg by mouth 2 times daily. 1 and a half tablets in am , and a half a tablet in evening. loratadine 10 MG tablet Take 5 mg by mouth daily. Review of Systems Denies the following: Arrhythmias, bleeding disorders, asthma, emphysema, MAR, seizure disorder, HTN, DM Denies previous problems with sedation or topical anesthetics Denies problems lying flat Gen - denies fevers or antibiotic therapy Cardiovascular - denies CP or palpitations Respiratory - Chronic SOB Gastrointestinal - denies nausea or vomiting; denies abdominal pain Renal - denies dysuria, hematuria or flank pain Neuromuscular - denies neuropathy; bilateral lower extremity weakness. Physical Exam Blood pressure 137/64, pulse 97, temperature 98 F (36.7 C), temperature source Oral, resp. rate 16, height 1.524 m (5'), weight 50.2 kg (110 lb 11.2 oz). General: Alert and oriented; Cardio: S1S2 RRR Lungs: Clear to auscultation bilaterally Neurological: No focal deficits Skin: [place], warm and dry Laboratory Data Lab Results Component Value Date/Time PLATELET 426 (H) 10/21/2021 04:27 PM HGB 10.7 (L) 10/21/2021 04:27 PM No results found for: INR, PT Impression and Plan 1. Adenocarcinoma with liver metastasis requiring IV access for chemotherapy-To IR lab for placement of a Single lumen [employer]. Education regarding the procedure provided. 2. Known AAA with recent elevated cardiac enzymes on 09/28/21. Presented to [place] ED and stat CT was completed and clear for any acute dissection. Following closely with cardiology (report available via care everywhere). Lucinda Escalante APRN-ERICA 10/30/2021 11:13 AM documented in this encounter [facility] 10-21-2021 History of Present illness Narrative GI MEDICAL ONCOLOGY CLINIC NOTE Attending: Dr. 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 with past medical history of renal cell carcinoma status post nephrectomy 1996, hypothyroidism, and fatty liver disease presented to the clinic for a liver mass that was biopsied showing moderately differentiated adenocarcinoma likely from GI tract primary, MMR stable. She has been complaining of fevers which trigered abdominal and chest imaging. CT chest showed 1 cm nodule and 6cm ascending thoracic aortic aneurysm, and abdominal CT showed large 11cm right lobe liver mass. Patient was evaluated by surgical oncology here who recommended tumor marker testing, liver biopsy, vascular surgery referral, and med onc referral. A CT guided biopsy was done with results as above. Patient is in the room with her and daughter. She continues to feel overall unwell. She has lost about 30 pounds in the last couple of months. She has fevers and night sweats as well. She developed new cough for about a month, now it is becoming productive of clear phlegm. She also endorsed shortness of breath with exertion. She has right upper quadrant pain that is worse with position changes. She feels that her abdominal pain is also worse since the biopsy. She denied nausea, vomiting, diarrhea, or constipation. She denied headache, chest pain, or leg swelling. She denied smoking, alcohol use, or drug use. Her mother had breast cancer at age 70, aunt had breast cancer in the 60s, and brother had lung cancer at age 62. She had her right kidney removed in 1996. She also had her uterus removed for fibroids and was found to have signs of early cancer. Last colonoscopy she had was at least more than 10 years ago, was normal. Patient had an abdominal wall birthmark that was treated with radiation as a child. Her daily activities are much limited by fatigue and lack of energy since the beginning of this issue. She does not have good appetite but forces herself to eat. CURRENT THERAPY N/A PAST MEDICAL HISTORY Past Medical History: Diagnosis Date Ascending aortic aneurysm 2019 History of kidney cancer Hypothyroidism Liver mass PAST SURGICAL HISTORY Past Surgical History: Procedure Laterality Date HYSTERECTOMY 1996 NEPHRECTOMY Right FAMILY HISTORY Family History Problem Relation Age of Onset Breast Cancer Mother No known problems Sister No known problems Sister Lung Cancer Brother Breast Cancer Maternal Aunt SOCIAL HISTORY Social History Socioeconomic History Marital status: Spouse name: Not on file Number of children: Not on file Years of education: Not on file Highest education level: Not on file Occupational History Not on file Tobacco Use Smoking status: Never Smoker Smokeless tobacco: Never Used Substance and Sexual Activity Alcohol use: Not Currently Drug use: Not Currently Sexual activity: Not on file Other Topics Concern Not on file Social History Narrative Not on file Social Determinants of Health Financial Resource Strain: Not on file Food Insecurity: Not on file Transportation Needs: Not on file Physical Activity: Not on file Stress: Not on file Social Connections: Not on file Intimate Partner Violence: Not on file Housing Stability: Not on file REVIEW OF SYSTEMS General: No chills Skin: No rash, wounds HEENT: No vision changes, epistaxis, mouth sores, dysphagia, odynophagia Respiratory: No shortness of breath Cardiovascular: No chest pain, palpitations, edema, syncope GI: As noted in HPI : No dysuria, hematuria Musculoskeletal: No weakness Neurologic: No dizziness, confusion, headache, uncontrolled anxiety/depression PHYSICAL EXAM Smoking Status Never Smoker APPEARANCE: Alert and oriented, cachectic, in no distress. EYES: Nonicteric. HEENT: Head atraumatic, normocephalic. NECK: Without cervical, supraclavicular or infraclavicular lymphadenopathy. RESPIRATORY: Lungs are clear to auscultation bilaterally. CARDIOVASCULAR: Heart rate and rhythm regular. No peripheral edema. ABDOMEN: Soft, nontender, nondistended, without palpable masses. Normoactive bowel sounds. No hepatosplenomegaly appreciated. LYMPHATICS: No axillary, periumbilical or inguinal lymphadenopathy appreciated. NEUROLOGIC: No focal deficits. SKIN: Without jaundice; pink, warm and dry ECOG PS 1 LABORATORY DATA CBC Lab Results Component Value Date WBC 10.49 10/08/2021 HGB 10.8 (L) 10/08/2021 HCT 33.9 (L) 10/08/2021 PLATELET 420 (H) 10/08/2021 MCV 81.3 10/08/2021 EDIF Lab Results Component Value Date RBCDISTRIBU 17.1 (H) 10/08/2021 PLATELET 420 (H) 10/08/2021 MPV 10.6 10/08/2021 No results found for: SODIUM, POTASSIUM, CHLORIDE, CO2, BUN, CREATSERUM No results found for: ALT, TRANSFERASEA, AST, GGT, GAMMAGT, ALKPHOS, BILITOTAL, BILIDIRECT Lab Results Component Value Date CEA 1,217.9 (H) 10/04/2021 CA199 633.49 (H) 10/04/[address] abdomen 09/13/2021 showed large 11cm right lobe liver mass CT chest 08/19/2021 showed 6cm ascending aortic aneurysm and 1cm lung nodule PATHOLOGY Pathologic Diagnosis A. Liver, lesion, biopsy: Moderately differentiated adenocarcinoma involving liver - See COMMENT. at 1253 Diagnosis Comments Imaging findings of a 10.8 x 11.2 cm mass in the liver is noted. Immunohistochemical stains performed are: Positive: CK20 (heterogeneous), CK19, CDX 2, Villin, SATB2 Negative: CK7, TTF 1, LUMA-3 Mismatch Repair Protein (MMR) Nuclear Expression by IHC: No loss of nuclear expression of MMR proteins MLH1: Present/intact PMS2: Present/intact MSH2: Present/intact MSH6: Present/intact The histomorphology and the immunoprofile support colorectal origin. Adenocarcinomas with intestinal differentiation of other primary sites should be excluded clinically. The adjacent liver parenchyma shows steatosis and reactive changes. Tumor remains on A1>A2 for ancillary testing. ASSESSMENT A 75 year old female presented with newly diagnosed 11cm liver mass with CT guided biopsy showing moderately differentiated adenocarcinoma likely from GI tract, MMR intact. CT chest showed 1cm nodule. CEA: 1217, CA19-9: 633. Last colonoscopy was more than 10 years ago, was normal. Strong family history of cancer. She had renal cell carcinoma resected 1996. Microcytic anemia, hgb 10.8 and MCV 81. Ascending aortic aneurysm, vascular surgery currently defering surgery given overall risk and prognosis. An echo showed normal EF of 50-55% with mild aortic regurgitation and severely 6.2cm dilated ascending aortic root. Performance status ECOG 2. PLAN - Discussed in details with patient and family the results of the liver biopsy - CBC and CMP - Tempus on both blood and liver biopsy - Colonoscopy to look for primary cancer - PET scan for staging and primary cancer - Will plan to start FOLFIRI in 2 weeks; educated on possible side effects - Place Port for chemotherapy - Return to clinic in 2 weeks Augustine Rae MD, MSc Hematology Oncology PGY-IV Attending addendum I saw and evaluated the patient with Dr. Wolf on the day of service. I provided a substantive portion of the care for this patient. I personally performed all aspects of the medical decision making for this encounter. I have reviewed and verified this documentation and it accurately reflects our care. Liver biopsy shows metastasis with likely lower GI primary. Will order a PET/CT to help identify a primary and to complete staging. Will also order a colonoscopy. However, if PET shows an obvious colorectal source then will cancel the colonoscopy since it will not roll changer. Plan to start FOLFIRI anyway in 2 weeks. Discussed logistics and expected side effects. Tempus sequencing ordered. RTC in 2 weeks Gennaro Dixon MD [employer] teacher Division of Medical Oncology GI Malignancies Section documented in this encounter [facility] 10-21-2021 Instructions Anupama Ceja RN - 10/21/2021 2:00 PM EDT Please return to clinic for an in person visit with Dr. Dixon in 2 weeks with RN labs prior and chemo (FOLFIRI) to follow. We will get you scheduled for a PET scan, colonoscopy and a mediport placement. Nausea is a common side effect of chemotherapy. We will supply you with 2 prescriptions: Compazine (Prochlorperazine) & Zofran (ondansetron). Instructions for use: At the first symptom of nausea: Take the Compazine every 6 hours as needed for nausea. If nausea is not improved you can add Zofron every 8 hours as needed. You can alternate the Compazine and Zofran every 3-4 hours. For example, take compazine at 9am. You are still nauseated at noon, then you take zofran. You can take compazine again at 3pm and zofran again at 8pm. If these meds do not help, please call our office . Other steps to help improve nausea: Avoid constipation Take a mild laxative when needed and continue with stool softeners daily Narcotics pain medications are constipating! DO s Eat small frequent meals instead of 3 large meals Eat slowly and whenever you feel like eating Eat bland foods and foods that digest easily Eat foods that are cool or at room temperature Go to a pleasant environment to have meals Suck on hard candy such as lemon drops Rest after eating, but do not lie down for 2 hours after eating Slow, deep breathing through the mouth will sometimes help nausea to pass Avoid unpleasant sights, sounds and smells that might trigger nausea Practice relaxation and guided imagery techniques Take a mild laxative for constipation Try clear liquids like Gatorade, broth, popsicles, gelatin, 7-up, ara brayden, etc. DON Ts Avoid spicy, greasy, and fried foods Avoids favorite foods so that you do not connect with with N&V Do not drink liquids with meals - wait 30-60 minutes to drink after eating When to Call the Doctor? Vomiting for 24 hours or more despite taking anti-emetics Blood in emesis Nausea & Vomiting with abdominal pain Nausea resulting in minimal oral intake for more than 2 days Weight loss of more than 5 pounds a week or 10 pounds in a month Dryness of eyes, mouth, skin Decreased urine output or dark colored urine Dizziness, especially when standing up Mediport placement We will schedule you for a mediport placement. This will be done in Interventional Radiology at the main hospital. They will contact you with the date & time of the procedure. You will register on the 1st floor of the [facility]. A port is a kind of vascular device that can be used to give you treatments (chemotherapy), to give blood transfusions or give blood samples for lab tests or IV fluids. This will be placed at a hospital either at [facility] or by your local surgeon. You may not have anything to eat or drink after midnight the night before your port is to be placed. You will need someone to drive you to your appt. as you will have an an IV started so the physician can give you sedation medications prior to the procedure. If you are taking Aspirin or any blood thinners, you will need to STOP those 5 days before the procedure. You can restart those the next day unless otherwise instructed by the physician. After the procedure, expect some bruising, swelling & tenderness at the site. This will usually go away after 2-3 days. The surgeon will give you instructions on how to care for your mediport site until healed. You are starting a chemotherapy regimen with FOLFIRI . The drugs listed in this regimen are: Irinotecan Fluorouracil The Irinotecan is given IV approximately over 90 minutes here on the 11th floor. The Fluorouracil is given over 46 hours via an ambulatory infusion pump. In order for this to happen, you will be getting an implanted central line called a Mediport if you do not already have one. This regimen is given every TWO weeks. Side effects associated with these agents: IRINOTECAN: Nausea (you will be given prescriptions to prevent this). Diarrhea (we would like you to have Loperamide (generic Imodium) on hand. We will go over with you how to take this in chemotherapy). Hair Loss FLUOROURACIL: Diarrhea (see above under Irinotecan). Hand / Foot Syndrome (dryness and cracking on your hands and feet). Please use lotion after every handwash and at least twice per day on your feet. Mucositis (mouth sores). Use good dental hygiene including a soft tooth brush and a non-alcohol based mouthwash. This medication can make your skin more likely to burn with sun exposure. Use a hypoallergenic sunscreen like Neutrogena SPF 30 or greater. Make certain you use it as directed to protect your skin when you are outside. You may need to reapply the sunscreen frequently, especially if you get wet. All of these agents can make your blood counts low. We will be checking your blood counts prior to each chemotherapy. Please your healthcare team if you have a fever greater than 100.5 F after receiving chemotherapy. Treatment of Diarrhea using Loperamide Special Instructions to Help Control Diarrhea Caused by Cancer Treatment You may need extra help to control diarrhea while taking some medicines used to treat cancer. Diarrhea caused by cancer treatments can be very serious, and may not go away on its own. A drug called Loperamide may help with controlling the diarrhea. It is available over the counter at any local pharmacy. This medicine also goes by a brand name - Imodium AD. It is important to drink 6 to 8 glasses of clear, mild liquids (water, clearbroths, sports drinks) every day to prevent dehydration. Drinking fluids will not cause more diarrhea. Instructions on How to Take Loperamide: If your doctor tells you to take Loperamide to control diarrhea, follow the directions below when taking the medicine: First dose: Take 2 caplets (4 mg) of Loperamide. During the day: Take 1 caplet (2 mg) every 2 hours if you still have frequent loose stool. During the night: Take 2 caplets (4 mg) at bedtime. Then take 2 caplets every 4 hours until morning. Stop taking Loperamide if you do not have a bowel movement for 12 hours. After that 12 hour period: If bowel movements are semi-solid to solid, do not take any more Loperamide. If bowel movements become watery again or if diarrhea increases, start taking Loperamide once more. Call the doctor s office if: Your diarrhea does not decrease or if it gets worse. You have symptoms such as dry mouth, dark colored urine, decrease in urine output, weight loss, feeling weak or lightheaded. These could be signs of dehydration. You have a fever over 100.5 F. You have bad stomach pain or cramps. You have bloody or black stool. You need to take more than 12 caplets (24 mg) in 24 hours. You still have loose stools after 24 hours on the medicine. The following attachments cannot be sent through Care Everywhere.Implanted Port ([employer] [place]) (Italian)documented in this encounter [facility] 10-08-2021 Miscellaneous Notes 1031: Patient arrives in [facility] Phase 2 Interventional Radiology from Interventional Radiology Procedure Suite with side rails up x2 with HOB >30 degrees, accompanied by IR Nurse. Patient placed on monitors, VSS. Patient assessed, see assessment. 1043: Discharge instructions explained to patient and family/friend. All questions answered. 1222: Patient meets Interventional Radiology sedation discharge criteria and discharged per MD order to home. Patient taken by wheelchair by Penny) to awaiting car. All belongings gathered with patient. Family/friend to drive patient home and care for patient 6 hours post-procedure. Procedure completed with IR Attending MD Lin of an image guided liver biopsy. Samples obtained intra-procedure and sent to lab for analysis. Post procedure patient to travel to [facility] for post procedure monitoring. See post procedure orders for nursing care. Needle out time 1012 Biopsy timeout performed by this RN and [employer]. documented in this encounter [facility] 10-08-2021 Note Formatting of this n ote might be different from the original. 1031: Patient arrives in [facility] Phase 2 Interventional Radiology from Interventional Radiology Procedure Suite with side rails up x2 with HOB >30 degrees, accompanied by IR Nurse. Patient placed on monitors, VSS. Patient assessed, see assessment. 1043: Discharge instructions explained to patient and family/friend. All questions answered. 1222: Patient meets Interventional Radiology sedation discharge criteria and discharged per MD order to home. Patient taken by wheelchair by (Marya) to awaiting car. All belongings gathered with patient. Family/friend to drive patient home and care for patient 6 hours post-procedure. [facility] 10-08-2021 Note Formatting of this n ote might be different from the original. Procedure completed with IR Attending MD Lin of an image guided liver biopsy. Samples obtained intra-procedure and sent to lab for analysis. Post procedure patient to travel to [facility] for post procedure monitoring. See post procedure orders for nursing care. Needle out time 1012 Biopsy timeout performed by this RN and [employer]. [facility] 10-08-2021 Procedure note Associated Ord er(s): GENERAL PROCEDURE Pre-Procedure Diagnose(s): Liver mass, right lobe Post-Procedure Diagnose(s): Liver mass, right lobe PROCEDURE NOTE PROCEDURE PERFORMED BY: Attending Terri Lin UTILIZATION ENGINEER(S): none PROCEDURE DATE: 10/08/21 10:15 AM PRE PROCEDURE DIAGNOSIS: 75 yo female with history of renal cell cancer with newly diagnosed 11cm liver mass for image guided biopsy POST PROCEDURE DIAGNOSIS: 75 yo female with history of renal cell cancer with newly diagnosed 11cm liver mass for image guided biopsy PROCEDURE: 1) Image guided biopsy of the liver lesion, right. Please refer to the imaging tab for the full dictation final report. CONSENT: Informed consent was obtained prior to the procedure after discussion of the risks, benefits, and alternatives and expected outcomes were discussed with the patient; consent placed in chart. UNIVERSAL PROTOCOL: Preprocedure verification is complete- patient verified and consents confirmed. ANESTHESIA: Moderate sedation and local anesthetic ESTIMATED BLOOD LOSS: Minimal CONDITION: Stable. Patient tolerated procedure well. COMPLICATIONS: None. SPECIMEN: Core biopsy samples of the large right hepatic mass lesion IMPRESSION/PLAN: 1. Ultrasound guided biopsy of large right hepatic mass lesion, samples sent to laboratory for testing. Thank you for allowing Interventional Radiology to participate in this patient's care. [facility] message or page [phone] with questions Signed, Terri Lin MD Attending Interventional Radiology [facility] Work Phone: 10-08-2021 Procedure note Associated Ord er(s): GENERAL PROCEDURE Pre-Procedure Diagnose(s): Liver mass, right lobe Post-Procedure Diagnose(s): Liver mass, right lobe PROCEDURE NOTE PROCEDURE PERFORMED BY: Attending Terri Lin UTILIZATION ENGINEER(S): none PROCEDURE DATE: 10/08/21 10:15 AM PRE PROCEDURE DIAGNOSIS: 75 yo female with history of renal cell cancer with newly diagnosed 11cm liver mass for image guided biopsy POST PROCEDURE DIAGNOSIS: 75 yo female with history of renal cell cancer with newly diagnosed 11cm liver mass for image guided biopsy PROCEDURE: 1) Image guided biopsy of the liver lesion, right. Please refer to the imaging tab for the full dictation final report. CONSENT: Informed consent was obtained prior to the procedure after discussion of the risks, benefits, and alternatives and expected outcomes were discussed with the patient; consent placed in chart. UNIVERSAL PROTOCOL: Preprocedure verification is complete- patient verified and consents confirmed. ANESTHESIA: Moderate sedation and local anesthetic ESTIMATED BLOOD LOSS: Minimal CONDITION: Stable. Patient tolerated procedure well. COMPLICATIONS: None. SPECIMEN: Core biopsy samples of the large right hepatic mass lesion IMPRESSION/PLAN: 1. Ultrasound guided biopsy of large right hepatic mass lesion, samples sent to laboratory for testing. Thank you for allowing Interventional Radiology to participate in this patient's care. Please [employer] message or page [phone] with questions Signed, Terri Lin MD Attending Interventional Radiology documented in this encounter [facility] 10-08-2021 Hospital Discharge instructions Do Rene APRN-UNDERGROUND SUPERVISOR - 10/08/2021 8:22 AM EDT Home Care after Sedation You have been given medicines during your procedure that might make you sleepy. To prevent problems: 1. Rest for the remainder of the day. You should have someone drive you home and be available for the next [address] 3. Do not drink alcoholic beverages today. 4. Do not make any important business or legally binding decisions today. 5. Do not work around the stove, machinery or power equipment today. 6. The medicines used for sedation may make you feel nauseated. Start with clear liquids, which is anything that you can see through such as tea, jello, broth and ara brayden. As you feel better you may add soft foods such as pudding and ice cream. When you no longer feel nauseated you may try your normal diet. You should be back to eating your normal meals after 24 hours. Home Care Instructions After Your Liver Biopsy 1. Go home without making any stops along the way. Rest in bed or on the couch until the next morning. Keep stair climbing to a minimum. Limit your activity for the next two days, no jogging or contact sports. Do not drive until the day after your biopsy. 2. Drink plenty of fluids. You should drink about twice the amount you usually Drink 3. Do not shower or take a tub bath the day of the biopsy. If you want to clean up, take a sponge bath. 4. Remove biopsy site bandage the morning after your biopsy. As you shower or bathe, wash the site gently and pat it dry. Do not scrub the site. 5. Do not lift heavy objects for 3 - 4 days. If your usual activities involve lifting, ask your doctor what is safe for you. 6. Ask your doctor when you may return to work. Call your doctor right away if you have these problems: Bleeding from the biopsy site Dizziness Pain Infection at the biopsy site Bleeding from the biopsy site: Lie down Have someone apply pressure to the site for 5 - 10 minutes, or until bleeding has stopped. If you are not able to stop the bleeding, call 911 or the emergency squad. Dizziness Change position or stand up slowly. Sometimes it helps to sit on the side of the bed for a few minutes before standing up. Pain After having a liver biopsy patients often have discomfort in their shoulder, arm, and neck. If the pain suddenly becomes more severe or if it does not decrease each day after the biopsy, notify your [facility] physician. Infection Signs of infection are increased swelling at or around the biopsy site, redness or pain to touch, drainage from the site, temperature over 100 degrees F. Other Instructions Call your doctor's office for a follow-up appointment if you do not already have one scheduled. Interventional Radiology Contact Information If you have questions or concerns, please call Interventional Radiology at documented in this encounter [facility] 09-30-2021 History and physical note Images from the original note were not included. Chief Complaint Patient presents with New Patient HPI: Ms. Toledo is a 75 y.o. female who was seen in the GI Surgical Oncology clinic on 09/30/2021 for recently seen liver mass. Mackenzie Toledo is here today with her for female appointment. She was experiencing fevers for over a month that prompted CT imaging that revealed a 6.3cm ascending aortic aneurysm and a 1cm lung nodule. She subsequently had abdominal pain that necessitated an abdominal US that showed an 11cm R hepatic mass, followed by a CT A/P that showed the same with concern for HCC vs intrahepatic cholangiocarcinoma. She did see Dr. Ceja at [facility] who recommended MRI vs biopsy, which have not been completed to date. At todays visit she is still having significant unintentional weight loss, lack of appetite, and fatigue that is limiting her ability to carry on daily routine. She presented with assistance of wheel chair. She states most days she is laying down and does all the work for her. She does get up and move around some, but not much and this is different than before. She has a PMHx of R RCC s/p lap R nephrectomy and RUQ radiation as an for a birthmark. Surgical history also includes appendectomy and vein striopping Past Medical History: Diagnosis Date Ascending aortic aneurysm 2019 History of kidney cancer Hypothyroidism Liver mass Past Surgical History: Procedure Laterality Date HYSTERECTOMY 1996 NEPHRECTOMY Right appendectomy 1996 Current Outpatient Medications Medication Sig Dispense Refill liothyronine 5 MCG tablet Take 12.5 mcg by mouth 2 times daily. loratadine 10 MG tablet Take 5 mg by mouth daily. No current facility-administered medications for this visit. Allergies Allergen Reactions Actonel [Risedronate] Pain Joint pain Fosamax [Alendronate] Pain Joint pain Morphine Hallucination Social History Socioeconomic History Marital status: Spouse name: Not on file Number of children: Not on file Years of education: Not on file Highest education level: Not on file Occupational History Not on file Tobacco Use Smoking status: Never Smoker Smokeless tobacco: Never Used Substance and Sexual Activity Alcohol use: Not Currently Drug use: Not Currently Sexual activity: Not on file Other Topics Concern Not on file Social History Narrative Not on file Social Determinants of Health Financial Resource Strain: Not on file Food Insecurity: Not on file Transportation Needs: Not on file Physical Activity: Not on file Stress: Not on file Social Connections: Not on file Intimate Partner Violence: Not on file Housing Stability: Not on file Family History Problem Relation Age of Onset Breast Cancer Mother No known problems Sister No known problems Sister Lung Cancer Brother Breast Cancer Maternal Aunt Review of Systems - General ROS: positive for - fatigue, fever and weight loss All other review of systems are negative. Physical Exam Blood pressure 117/66, pulse 98, temperature 98.2 F (36.8 C), temperature source Oral, resp. rate 20, height 1.54 m (5' 0.63 ), weight 51.2 kg (112 lb 12.8 oz), SpO2 94 %. General- well developed, well nourished, no acute distress HEENT- normocephalic, atraumatic, EOMI, nonicteric sclerae, moist mucous membranes Neck- supple, nontender, full range of motion Lungs- clear to auscultation bilaterally Heart- regular without murmurs Abdomen- soft, minimally-tender to RUQ, without masses or organomegaly; - deferred Extremities- no edema, palpable pedal pulses Integumentary- warm, dry, no rashes or lesions noted Neuro- nonfocal, cranial nerves II-XII grossly intact ECOG Performance Status: 3 0 - Asymptomatic (Fully active, able to carry on all predisease activities without restriction) 1 - Symptomatic but completely ambulatory (Restricted in physically strenuous activity but ambulatory and able to carry out work of a light or sedentary nature. For example, light housework, office work) 2 - Symptomatic, <50% in bed during the day (Ambulatory and capable of all self care but unable to carry out any work activities. Up and about more than 50% of waking hours) 3 - Symptomatic, >50% in bed, but not bedbound (Capable of only limited self-care, confined to bed or chair 50% or more of waking hours) 4 - Bedbound (Completely disabled. Cannot carry on any self-care. Totally confined to bed or chair) Laboratory evaluation: No results found for: CEA, CEAPRESHAMA, CEANEWMETHOD No components found for: CA 19-9 No components found for: CA 125 No results found for: SODIUM, POTASSIUM, GLUCOSE, CHLORIDE, CO2, [id number], BUN, CREATININE No results found for: ALT, TRANSFERASEA, AST, GGT, GAMMAGT, BILIRUBIN, BILIRUBINTON No results found for: WBC, WBCCOUNT, WBCFETAL, HEMOGLOBINS, HEMOGLOBINF, HEMOGLOBINB, HEMATOCRITFT, MCV Radiographic evaluation: A/P: Per Dr. Ham 1. IR consult for liver biopsy, tumor markers and labs obtained today 2. Will place Med Onc appointment to follow biopsy results to discuss possible therapies 3. Referral to CT surgery regarding 6.3 cm ascending aneurysm 4. RTC in 4 months All questions were answered. She was instructed to call the office if they had further questions. Jaspal Cordon MD, PhD [phone] [facility] Work Phone: 09-30-2021 History and physical note Images from the original note were not included. Chief Complaint Patient presents with New Patient HPI: Ms. Toledo is a 75 y.o. female who was seen in the GI Surgical Oncology clinic on 09/30/2021 for recently seen liver mass. Mackenzie Toledo is here today with her for female appointment. She was experiencing fevers for over a month that prompted CT imaging that revealed a 6.3cm ascending aortic aneurysm and a 1cm lung nodule. She subsequently had abdominal pain that necessitated an abdominal US that showed an 11cm R hepatic mass, followed by a CT A/P that showed the same with concern for HCC vs intrahepatic cholangiocarcinoma. She did see Dr. Ceja at [facility] who recommended MRI vs biopsy, which have not been completed to date. At todays visit she is still having significant unintentional weight loss, lack of appetite, and fatigue that is limiting her ability to carry on daily routine. She presented with assistance of wheel chair. She states most days she is laying down and does all the work for her. She does get up and move around some, but not much and this is different than before. She has a PMHx of R RCC s/p lap R nephrectomy and RUQ radiation as an for a birthmark. Surgical history also includes appendectomy and vein striopping Past Medical History: Diagnosis Date Ascending aortic aneurysm 2019 History of kidney cancer Hypothyroidism Liver mass Past Surgical History: Procedure Laterality Date HYSTERECTOMY 1996 NEPHRECTOMY Right appendectomy 1996 Current Outpatient Medications Medication Sig Dispense Refill liothyronine 5 MCG tablet Take 12.5 mcg by mouth 2 times daily. loratadine 10 MG tablet Take 5 mg by mouth daily. No current facility-administered medications for this visit. Allergies Allergen Reactions Actonel [Risedronate] Pain Joint pain Fosamax [Alendronate] Pain Joint pain Morphine Hallucination Social History Socioeconomic History Marital status: Spouse name: Not on file Number of children: Not on file Years of education: Not on file Highest education level: Not on file Occupational History Not on file Tobacco Use Smoking status: Never Smoker Smokeless tobacco: Never Used Substance and Sexual Activity Alcohol use: Not Currently Drug use: Not Currently Sexual activity: Not on file Other Topics Concern Not on file Social History Narrative Not on file Social Determinants of Health Financial Resource Strain: Not on file Food Insecurity: Not on file Transportation Needs: Not on file Physical Activity: Not on file Stress: Not on file Social Connections: Not on file Intimate Partner Violence: Not on file Housing Stability: Not on file Family History Problem Relation Age of Onset Breast Cancer Mother No known problems Sister No known problems Sister Lung Cancer Brother Breast Cancer Maternal Aunt Review of Systems - General ROS: positive for - fatigue, fever and weight loss All other review of systems are negative. Physical Exam Blood pressure 117/66, pulse 98, temperature 98.2 F (36.8 C), temperature source Oral, resp. rate 20, height 1.54 m (5' 0.63 ), weight 51.2 kg (112 lb 12.8 oz), SpO2 94 %. General- well developed, well nourished, no acute distress HEENT- normocephalic, atraumatic, EOMI, nonicteric sclerae, moist mucous membranes Neck- supple, nontender, full range of motion Lungs- clear to auscultation bilaterally Heart- regular without murmurs Abdomen- soft, minimally-tender to RUQ, without masses or organomegaly; - deferred Extremities- no edema, palpable pedal pulses Integumentary- warm, dry, no rashes or lesions noted Neuro- nonfocal, cranial nerves II-XII grossly intact ECOG Performance Status: 3 0 - Asymptomatic (Fully active, able to carry on all predisease activities without restriction) 1 - Symptomatic but completely ambulatory (Restricted in physically strenuous activity but ambulatory and able to carry out work of a light or sedentary nature. For example, light housework, office work) 2 - Symptomatic, <50% in bed during the day (Ambulatory and capable of all self care but unable to carry out any work activities. Up and about more than 50% of waking hours) 3 - Symptomatic, >50% in bed, but not bedbound (Capable of only limited self-care, confined to bed or chair 50% or more of waking hours) 4 - Bedbound (Completely disabled. Cannot carry on any self-care. Totally confined to bed or chair) Laboratory evaluation: No results found for: CEA, CEAPRESHAMA, CEANEWMETHOD No components found for: CA 19-9 No components found for: CA 125 No results found for: SODIUM, POTASSIUM, GLUCOSE, CHLORIDE, CO2, [id number], BUN, CREATININE No results found for: ALT, TRANSFERASEA, AST, GGT, GAMMAGT, BILIRUBIN, BILIRUBINTON No results found for: WBC, WBCCOUNT, WBCFETAL, HEMOGLOBINS, HEMOGLOBINF, HEMOGLOBINB, HEMATOCRITFT, MCV Radiographic evaluation: A/P: Per Dr. Ham 1. IR consult for liver biopsy, tumor markers and labs obtained today 2. Will place Med Onc appointment to follow biopsy results to discuss possible therapies 3. Referral to CT surgery regarding 6.3 cm ascending aneurysm 4. RTC in 4 months All questions were answered. She was instructed to call the office if they had further questions. Jaspal Cordon MD, PhD [phone] documented in this encounter [facility] 09-30-2021 History of Present illness Narrative Attending Physician Note (GC) I interviewed and examined this patient with the resident. I reviewed the history and exam detailed in the note. I agree with the medical decision making with the following comment(s): Patient with history of 6 cm AAA that has gotten larger. RCC of right kidney resected in 1996. Now with large right liver mass. PS is poor. Will arrange biopsy of right liver mass, send labs including tumor markers (CEA, AFP, CA19-9). Will refer to vascular surgery here to work up AAA. Once biopsy back will need to be refered to med onc. I will see back in 3 months once these things done.. documented in this encounter [facility] 09-26-2021 Note HNO ID: [id number] Author: Armand Ceja MD Service: ? Author Type: Physician Type: Progress Notes Filed: 09/26/2021 10:17 AM Note Text: Armand Ceja M.D. Surgical Oncology [address] [facility], [address] [place] [address] SUBJECTIVE HPI Mackenzie Toledo is a 75 year old female presenting for evaluation of a liver mass. Patient was experiencing intermittent fevers for over a month. This prompted an extensive work-up including an evaluation by functional medicine doctor. She also underwent a CT scan of sinuses and chest in August 2021. This showed a ascending aorta with a diameter of 6.3 cm as well as a 10 mm left lung nodule. It was done without contrast. Patient then was reporting abdominal pain and underwent a abdominal ultrasound on September 05, 2021. This demonstrated a heterogeneous mass in the right hepatic lobe measuring approximately 11 cm. This was followed up by a contrast-enhanced CT scan which once again demonstrated an 11 cm right hepatic lobe mass in the context of an enlarged liver with fatty changes. There is minimal peripheral enhancement. No other significant findings were appreciated and the concern was that this could be a hepatocellular carcinoma versus a intrahepatic cholangiocarcinoma. Importantly, patient has a history of a right nephrectomy for renal cell carcinoma. She also has a history of radiation exposure to the right upper quadrant for a birthmark as an infant. Currently, patient reports that overall she does not feel well. She reports that she has fatigue and weight loss. She also reports intermittent fevers. She continues to have right-sided abdominal pain. Review of Systems Constitutional: Positive for fever, malaise/fatigue and weight loss. HENT: Negative for sore throat. Eyes: Negative for blurred vision and double vision. Respiratory: Negative for cough, hemoptysis, shortness of breath and stridor. Cardiovascular: Negative for palpitations, claudication and leg swelling. Gastrointestinal: Positive for abdominal pain. Negative for blood in stool, nausea and vomiting. Genitourinary: Negative for dysuria, flank pain and hematuria. Musculoskeletal: Negative for falls, joint pain and myalgias. Skin: Negative for rash. Neurological: Negative for speech change, focal weakness and headaches. Endo/Heme/Allergies: Does not bruise/bleed easily. Psychiatric/Behavioral: Negative for depression and memory loss. The patient is not nervous/anxious. PAST MEDICAL HISTORY Diagnosis Date Acute abdominal pain Acute gout of right foot Ascending aorta dilation (HCC) History of endometrial cancer History of renal cell cancer Interstitial lung disease (HCC) Liver mass, right lobe Lymphocytopenia Osteoporosis Otosclerosis Recurrent fever Sensorineural hearing loss BILATERAL Unspecified hypothyroidism PAST SURGICAL HISTORY Procedure Laterality Date APPENDECTOMY N/A 1996 COLONOSCOPY SCREENING 2017 LAP NEPHRECTOMY Right 1996 Dr. Amezquita PAST SURGICAL HISTORY OF N/A vein stripping TOTAL ABDOM HYSTERECTOMY 1996 Social History Tobacco Use Smoking status: Never Smokeless tobacco: Never Substance Use Topics Alcohol use: No Drug use: No FAMILY HISTORY Problem Relation Age of Onset Breast Cancer Mother other (CVA) Father Lung Cancer Brother The ROS, medical, surgical, family, and social history were reviewed by Armand Ceja MD ALLERGIES Allergen Reactions Actonel [Risedronat* Other: See Comments Muscle Pain Fosamax [Alendronat* Other: See Comments Muscle/joint pain Current Outpatient Medications Medication Sig MEDICATION, NON-DATABASE Ten Mushrooms liothyronine (CYTOMEL) 5 mcg tablet Take 15 mcg by mouth once daily. multivitamin tablet Take 1 tablet by mouth once daily. (Patient not taking: Reported on 09/26/2021) No current facility-administered medications for this visit. OBJECTIVE BP 108/65 (BP Site: Right Arm, BP Position: Sitting, BP Cuff Size: Regular Adult) Pulse 107 Ht 152.4 cm (5') Wt 50.8 kg (112 lb) SpO2 98% BMI 21.87 kg/m? BMI 21.87 kg/(m2) Physical Exam Constitutional: General: She is not in acute distress. HENT: Head: Normocephalic and atraumatic. Eyes: Pupils: Pupils are equal, round, and reactive to light. Neck: Thyroid: No thyromegaly. Trachea: No tracheal deviation. Cardiovascular: Rate and Rhythm: Normal rate and regular rhythm. Heart sounds: Normal heart sounds. Pulmonary: Effort: Pulmonary effort is normal. No respiratory distress. Breath sounds: Normal breath sounds. No stridor. Abdominal: General: There is no distension. Palpations: Abdomen is soft. There is no mass. Tenderness: There is no abdominal tenderness. Comments: ? Firm liver felt below the costal margin. Musculoskeletal: General: No deformity. Normal range of motion. Skin: General: Skin is warm and dry. Findings: No erythema or rash (more content not included)... [facility] 09-26-2021 Miscellaneous Notes Patients came in to drop off lab orders for his . They are in [facility] mailbox. documented in this encounter [facility] 09-26-2021 History of Present illness Narrative Images from the original note were not included. Armand Ceja M.D. Surgical Oncology [address] [facility], [address] [place] [id number] SUBJECTIVE HPI Mackenzie Toledo is a 75 year old female presenting for evaluation of a liver mass. Patient was experiencing intermittent fevers for over a month. This prompted an extensive work-up including an evaluation by functional medicine doctor. She also underwent a CT scan of sinuses and chest in August 2021. This showed a ascending aorta with a diameter of 6.3 cm as well as a 10 mm left lung nodule. It was done without contrast. Patient then was reporting abdominal pain and underwent a abdominal ultrasound on September 05, 2021. This demonstrated a heterogeneous mass in the right hepatic lobe measuring approximately 11 cm. This was followed up by a contrast-enhanced CT scan which once again demonstrated an 11 cm right hepatic lobe mass in the context of an enlarged liver with fatty changes. There is minimal peripheral enhancement. No other significant findings were appreciated and the concern was that this could be a hepatocellular carcinoma versus a intrahepatic cholangiocarcinoma. Importantly, patient has a history of a right nephrectomy for renal cell carcinoma. She also has a history of radiation exposure to the right upper quadrant for a birthmark as an . Currently, patient reports that overall she does not feel well. She reports that she has fatigue and weight loss. She also reports intermittent fevers. She continues to have right-sided abdominal pain. Review of Systems Constitutional: Positive for fever, malaise/fatigue and weight loss. HENT: Negative for sore throat. Eyes: Negative for blurred vision and double vision. Respiratory: Negative for cough, hemoptysis, shortness of breath and stridor. Cardiovascular: Negative for palpitations, claudication and leg swelling. Gastrointestinal: Positive for abdominal pain. Negative for blood in stool, nausea and vomiting. Genitourinary: Negative for dysuria, flank pain and hematuria. Musculoskeletal: Negative for falls, joint pain and myalgias. Skin: Negative for rash. Neurological: Negative for speech change, focal weakness and headaches. Endo/Heme/Allergies: Does not bruise/bleed easily. Psychiatric/Behavioral: Negative for depression and memory loss. The patient is not nervous/anxious. PAST MEDICAL HISTORY Diagnosis Date Acute abdominal pain Acute gout of right foot Ascending aorta dilation (HCC) History of endometrial cancer History of renal cell cancer Interstitial lung disease (HCC) Liver mass, right lobe Lymphocytopenia Osteoporosis Otosclerosis Recurrent fever Sensorineural hearing loss BILATERAL Unspecified hypothyroidism PAST SURGICAL HISTORY Procedure Laterality Date APPENDECTOMY N/A 1996 COLONOSCOPY SCREENING 2018 LAP NEPHRECTOMY Right 1996 Dr. Amezquita PAST SURGICAL HISTORY OF N/A vein stripping TOTAL ABDOM HYSTERECTOMY 1996 Social History Tobacco Use Smoking status: Never Smokeless tobacco: Never Substance Use Topics Alcohol use: No Drug use: No FAMILY HISTORY Problem Relation Age of Onset Breast Cancer Mother other (CVA) Father Lung Cancer Brother The ROS, medical, surgical, family, and social history were reviewed by Armand Ceja MD ALLERGIES Allergen Reactions Actonel [Risedronat* Other: See Comments Muscle Pain Fosamax [Alendronat* Other: See Comments Muscle/joint pain Current Outpatient Medications Medication Sig MEDICATION, NON-DATABASE Ten Mushrooms liothyronine (CYTOMEL) 5 mcg tablet Take 15 mcg by mouth once daily. multivitamin tablet Take 1 tablet by mouth once daily. (Patient not taking: Reported on 09/26/2021) No current facility-administered medications for this visit. OBJECTIVE BP 108/65 (BP Site: Right Arm, BP Position: Sitting, BP Cuff Size: Regular Adult) Pulse 107 Ht 152.4 cm (5') Wt 50.8 kg (112 lb) SpO2 98% BMI 21.87 kg/m BMI 21.87 kg/(m^2) Physical Exam Constitutional: General: She is not in acute distress. HENT: Head: Normocephalic and atraumatic. Eyes: Pupils: Pupils are equal, round, and reactive to light. Neck: Thyroid: No thyromegaly. Trachea: No tracheal deviation. Cardiovascular: Rate and Rhythm: Normal rate and regular rhythm. Heart sounds: Normal heart sounds. Pulmonary: Effort: Pulmonary effort is normal. No respiratory distress. Breath sounds: Normal breath sounds. No stridor. Abdominal: General: There is no distension. Palpations: Abdomen is soft. There is no mass. Tenderness: There is no abdominal tenderness. Comments: ? Firm liver felt below the costal margin. Musculoskeletal: General: No deformity. Normal range of motion. Skin: General: Skin is warm and dry. Findings: No erythema or rash. Comments: Oval scar consistent with radiation changes Neurological: Mental Status: She is alert and oriented to person, place, and time. Psychiatric: Mood and Affect: Affect normal. Judgment: Judgment normal. ASSESSMENT AND PLAN Plan 75-year-old woman with a newly diagnosed right hepatic mass. This mass is of uncertain etiology. I discussed management options with the patient and her . I advised them that we could proceed with additional imaging such as an MRI for further evaluation versus proceeding with a biopsy. I informed the patient that we will review her imaging here at [facility] with the expectation that we will proceed with a image guided biopsy for definitive diagnosis. I have the patient follow-up with me afterwards to discuss the next steps in her management. Answered all of her questions to her satisfaction and she is agreeable to this plan. Medical Decision Making: Data: Unique source(s) for external note(s) reviewed: 1 Unique test result(s) reviewed: 2 Unique test(s) ordered: 1 Risk: Moderate: Moderate risk from testing/treatment Medical Decision Making Level: 4 - Moderate Armand Ceja MD 09/26/2021 8:41 AM documented in this encounter [facility] 08-30-2021 Note . MICRO - Microbiology PROCEDURE: Urine Culture [*1] SOURCE: Urine BODY SITE: COLLECTED DATE/TIME: 08/29/2021 16:18 EDT RECEIVED DATE/TIME: 08/29/2021 19:38 EDT START DATE/TIME: 08/29/2021 19:39 EDT FREE TEXT SOURCE: FINAL REPORTS Final Report [] Verified Date/Time/Personnel: 08/30/2021 14:27 EDT >100,000 cfu/ml Multiple bacterial morphotypes present. Probable Contamination. Suggest recollection if clinically indicated. Performing Locations *1: This test was performed at: [address], [facility] , [facility] ([place]) 06-09-2021 Miscellaneous Notes I called and follow up with Mackenzie regarding her liver bx. Her said they are following up at the [facility] in [place]. documented in this encounter [facility] Liver tumor- Primary Neoplasm of unspecified nature of digestive system Carcinoma in situ of digestive organ, unspecified Malignant neoplasm of biliary tract, unspecified Right upper quadrant abdominal swelling, mass and lump [facility] Diagnosis Liver mass Unspecified disorder of liver [facility] Diagnosis Liver metastasis 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 Other malignant neoplasm without specification of site Liver metastasis 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 Other malignant neoplasm without specification of site Liver metastasis 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 Other malignant neoplasm without specification of site [facility] Liver metastasis- Primary 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 Other malignant neoplasm without specification of site Liver metastasis 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 Other malignant neoplasm without specification of site Liver metastasis 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 Other malignant neoplasm without specification of site Liver metastasis 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 Other malignant neoplasm without specification of site documented in this encounter [facility] Liver metastasis 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 Other malignant neoplasm without specification of site [facility] this [facility] Diagnosis Metastatic colon cancer to liver- Primary Malignant neoplasm of colon, unspecified site Anemia, unspecified type Encounter for antineoplastic chemotherapy documented in this encounter [facility] Consultation (Routine) - New Request Specialty Diagnoses / Procedures Referred By Contac t Referred To Contact Cardiac Surgery Diagnoses Liver tumor Jason Ham MD, PhD, MPH [address] [place] [address] Referral ID Status Reason Start Date Expiration Date V isits Requested Visits Authorized [id number] New Request 09/30/2021 10/25/2022 1 1 * Consultation (Routine) - New Request Specialty Diagnoses / Procedures Referred By Contac t Referred To Contact Oncology Diagnoses Liver tumor Jason Ham MD, PhD, MPH [address] [place] [address] Referral ID Status Reason Start Date Expiration Date V isits Requested Visits Authorized [id number] New Request 09/30/2021 10/25/2022 1 1 * Consultation (Routine) - New Request Specialty Diagnoses / Procedures Referred By Mike garcia Referred To Contact Interventional Radiology Diagnoses Liver tumor Jason Ham MD, PhD, MPH [address] [place] [address] Referral ID Status Reason Start Date Expiration Date V isits Requested Visits Authorized [id number] New Request 09/30/2021 10/25/2022 1 1 [facility] for referral (narrative)* Consultation (Routine) - Patient to Arrange Specialty Diagnoses / Procedures Referred By Mike garcia Referred To Contact Oncology Diagnoses Metastatic colon cancer to liver Iwona Duval, LADLE REPAIRMAN-UNDERGROUND SUPERVISOR [address] [place] [address] Referral ID Status Reason Start Date Expiration Date V isits Requested Visits Authorized [id number] Patient to Arrange 11/04/2021 11/29/2022 1 1 [facility] Auth/Cert Specialty Diagnoses / Procedures Referred By Mike garcia Referred To Contact Diagnoses Liver metastasis Adenocarcinoma of unknown primary Liver metastasis [C78.7] Adenocarcinoma of unknown primary [C80.1] Procedures INSERTION CVC TUNNELED W/ PORT PUMP Esteal Munguia MD [address] [place] [address] [facility] [address] [place] [address] Referral ID Status Reason Start Date Expiration Date Visits Re quested Visits Authorized [id number] 1 1 [facility] Summary Purpose Family History No Family History Records FoundNo Family History Records FoundNo Family History Records FoundNo Family History Records FoundNo Family History Records FoundNo Family History Records FoundNo Family History Records Found Advance Directives No Advanced Directives Records FoundNo Advanced Directives Records FoundNo Advanced Directives Records FoundNo Advanced Directives Records FoundNo Advanced Directives Records FoundNo Advanced Directives Records FoundNo Advanced Directives Records Found Reason for Referral Specialty Diagnoses / Procedures Referred By Contac t Referred To Contact Diagnoses Liver mass Procedures US PERCUTANEOUS LIVER BIOPSY NE BIOPSY LIVER NEEDLE PERCUTANEOUS NE SONO GUIDE NEEDLE PLACEMENT Jaspal Cordon MD, PhD [address] [place] [address] Referral ID Status Reason Start Date Expiration Date Visits Re quested Visits Authorized [id number] Closed 09/30/2021 10/25/2022 1 1 Specialty Diagnoses / Procedures Referred By Contac t Referred To Contact Diagnoses Liver metastasis Adenocarcinoma of unknown primary Procedures NUC PET OTHER CHG NUC THERAPY HYPERTHYROID SUBSEQUENT Gennaro Dixon MD [address] [address] Referral ID Status Reason Start Date Expiration Date Visits Re quested Visits Authorized [id number] Closed 10/21/2021 11/15/2022 1 1 Specialty Diagnoses / Procedures Referred By Contac t Referred To Contact Diagnoses Liver metastasis Procedures DIAGNOSTIC COLONOSCOPY NE COLONOSCOPY FLX DX W/COLLJ SPEC WHEN PFRMD Gennaro Dixon MD [address] [address] Referral ID Status Reason Start Date Expiration Date V isits Requested Visits Authorized [id number] New Request 10/21/2021 11/15/2022 1 1 Specialty Diagnoses / Procedures Referred By Contac t Referred To Contact Diagnoses Liver metastasis Adenocarcinoma of unknown primary Procedures CASE REQUEST - IR CVC Gennaro Dixon MD [address] [address] Referral ID Status Reason Start Date Expiration Date V isits Requested Visits Authorized [id number] New Request 10/21/2021 11/15/2022 1 1 Additional Source Comments INFORMATION SOURCE (unrecogn ized section and content) DATE CREATED AUTHOR AUTHOR'S ORGANIZ ATION 07/15/2021 [facility] DATE CREATED AUTHOR AUTHOR'S ORGANIZ ATION 10/05/2021 [facility] [place] DATE CREATED AUTHOR AUTHOR'S ORGANIZ ATION 10/06/2021 [facility] DATE CREATED AUTHOR AUTHOR'S ORGANIZ ATION 11/20/2021 [facility] DATE CREATED AUTHOR AUTHOR'S ORGANIZ ATION 06/17/2022 [facility] DATE CREATED AUTHOR AUTHOR'S ORGANIZ ATION 07/29/2022 [facility] Source Comments (unrecognize d section and content) In the event this informatio n is protected by the Federal Confidentiality of Alcohol and Drug Abuse Patient Records regulations: The Federal rules restrict any use of the information to criminally investigate or prosecute any alcohol or drug abuse patient.[facility] the event this information is protected by the Federal Confidentiality of Alcohol and Drug Abuse Patient Records regulations: The Federal rules restrict any use of the information to criminally investigate or prosecute any alcohol or drug abuse patient.[facility] the event this information is protected by the Federal Confidentiality of Alcohol and Drug Abuse Patient Records regulations: The Federal rules restrict any use of the information to criminally investigate or prosecute any alcohol or drug abuse patient.[facility] Center[facility] the event this information is protected by the Federal Confidentiality of Alcohol and Drug Abuse Patient Records regulations: The Federal rules restrict any use of the information to criminally investigate or prosecute any alcohol or drug abuse patient.[facility] Care Teams (unrecognized sec tion and content) Furnace Liner Relationship Specialty Start Date End Date Grady Menchaca MD [address] [place] [phone] PCP - General Family Practice 09/19/21 Furnace Liner Relationship Specialty Start Date End Date Grady Menchaca MD [address] [place] [phone] PCP - General Family Practice 09/19/21 Furnace Liner Relationship Specialty Start [place] [address] [place] [phone] PCP - General Family Medicine 09/30/21 [place] [address] [place] [phone] [employer] Cataloguer Internal Medicine 09/30/21 Furnace Liner Relationship Specialty Start [place] [address] [place] [phone] PCP - General Family Medicine 09/30/21 Desirae Castro MD [address] [phone] [employer] Cataloguer Internal Medicine 09/30/21 Furnace Liner Relationship Specialty Start Date End Date Aracelis Simmons MD [address] [place] [phone] PCP - General Family Medicine 09/30/21 [place] [address] [place] [address] [phone] Parts Cataloguer Internal Medicine 09/30/21 Furnace Liner Relationship Specialty Start [place] [address] [place] [phone] PCP - General Family Medicine 09/30/21 [place] [address] [place] [phone] Parts Cataloguer Internal Medicine 09/30/21 Furnace Liner Relationship Specialty Start [place] [address] [place] [phone] PCP - General Family Medicine 09/30/21 [place] [address] [place] [address] Parts Cataloguer Internal Medicine 09/30/21 Furnace Liner Relationship Specialty Start [place] [address] [place] [phone] PCP - General Family Medicine 09/30/21 [place] [address] [place] [address]605 [employer] Catalog[employer] Internal Medicine 09/30/21 Reason for Visit (unrecogniz ed section and content) Specialty Diagnoses / Procedures Referred By Mike garcia Referred To Contact Oncology Diagnoses Liver tumor Jason Ham MD, PhD, MPH [address] [place] [address] Referral ID Status Reason Start Date Expiration Date V isits Requested Visits Authorized [id number] New Request 09/30/2021 10/25/2022 1 1 Reason Comments Liver Mass Reason Comments Orders Specialty Diagnoses / Procedures Referred By Contac t Referred To Contact Surgical Oncology Diagnoses New pt;liver mass Procedures [facility] Self, Jason Samuels MD, PhD, MPH [address] [place] [address] Referral ID Status Reason Start Date Expiration Date V isits Requested Visits Authorized [id number] New Request 09/30/2021 10/25/2022 1 1 Reason Comments Appointment Specialty Diagnoses / Procedures Referred By Contac t Referred To Contact Diagnoses Liver mass Procedures US PERCUTANEOUS LIVER BIOPSY NE BIOPSY LIVER NEEDLE PERCUTANEOUS NE SONO GUIDE NEEDLE PLACEMENT Jaspal Cordon MD, PhD [address] [place] [address] Referral ID Status Reason Start Date Expiration Date Visits Re quested Visits Authorized [id number] Closed 09/30/2021 10/25/2022 1 1 Specialty Diagnoses / Procedures Referred By Contac t Referred To Contact Diagnoses Liver metastasis Adenocarcinoma of unknown primary Procedures NUC PET OTHER CHG NUC THERAPY HYPERTHYROID SUBSEQUENT Gennaro Dixon MD [address] [place] [address] [place] [address] Referral ID Status Reason Start Date Expiration Date Visits Re quested Visits Authorized [id number] Closed 10/21/2021 11/15/2022 1 1 Reason Comments Follow-up Scheduled Active and Recently Administ ered Medications (unrecognized section and content) PRN Medication Order 10/28/2021 10/29/2021 10/30/2021 acetaminophen (TYLENOL) tablet 650 mg(Linked Group 2) 650 mg, Oral, EVERY 6 HOURS NEEDED, Starting on Thu10/30/21 at 1325, Until Thu10/30/21 at 1657, Mild Pain, Maximum dose of acetaminophen is 4000 mg from all sources in 24 hours., Post-op/Post-Proc fentaNYL (SUBLIMAZE) injection 0-300 mcg 0-300 mcg, Intravenous, Administer over 2 Minutes, ADMINISTER DIRECTED, Starting on Thu10/30/21 at 1141, Until Thu10/30/21 at 1540, intraoperative pain management, Administer during procedure as directed by physician. Recorded MAR dose is cumulative amount given during procedure., Intra-op/Intra-Proc 1240 (Given - Provid er: Lavonne Diego RN)1245 (Given - Provider: Lavonne Diego RN)1259 (Given - Provider: Lavonne Diego RN)1305 (Given - Provider: Lavonne Diego RN) heparin 100 units/mL flush injection 500 Units 500 Units, Intracatheter, ADMINISTER DIRECTED, Starting on Thu10/30/21 at 1141, Until Thu10/30/21 at 1657, Flush, Subcutaneous Access Port: Flush with 100u/mL heparin, 5ml per SCAP, 500units per SCAP., Intra-op/Intra-Proc 1306 (Given - Provid er: Lavonne Diego RN) ibuprofen (MOTRIN) tablet 400 mg(Linked Group 2) 400 mg, Oral, EVERY 4 HOURS NEEDED, Starting on Thu10/30/21 at 1325, Until Thu10/30/21 at 1657, Mild Pain, Give with food, Post-op/Post-Proc midazolam (VERSED) injection 0-10 mg 0-10 mg, Intravenous, ADMINISTER DIRECTED, Starting on Thu10/30/21 at 1141, Until Thu10/30/21 at 1540, Procedural sedation, Administer during procedure as directed by physician. Recorded MAR dose is cumulative amount given during procedure., Intra-op/Intra-Proc 1240 (Canceled Entry - Provider: Lavonne Diego RN)1240 (Given - Provider: Lavonne Diego RN)1246 (Given - Provider: Lavonne Diego RN)1259 (Given - Provider: Lavonne Diego RN)1305 (Given - Provider: Lavonne Diego RN) ondansetron (ZOFRAN) tablet 4 mg(Linked Group 3) 4 mg, Oral, EVERY 6 HOURS NEEDED, Starting on Thu10/30/21 at 1325, Until Thu10/30/21 at 1657, Nausea / Vomiting, Try oral dose form first. May give 1 dose as needed in PACU., Recovery ondansetron 4mg/2ml (ZOFRAN) injection 4 mg(Linked Group 3) 4 mg, Intravenous, EVERY 6 HOURS NEEDED, Starting on Thu10/30/21 at 1325, Until Thu10/30/21 at 1657, Nausea / Vomiting, Try oral dose form first. May give 1 dose as needed in PACU. , Recovery Linked Groups Order Group 1: naloxone (NARCAN) injection 0.1 mgJump to med 0.1 mg, Intravenous, SEE ADMIN INSTRUCTIONS, Starting on Thu10/30/21 at 1141, Until Thu10/30/21 at 1540
If RR </= 7 per min and difficult to arouse give naloxone 0.1 mg q 2 mins until RR > 8/min and/or drowsiness abates. Contact provider. If no response is noted after 4 doses, consider other causes of respiratory depression. Vial to bedside in procedure room. Administer ONLY UNDER THE DIRECTION OF PHYSICIAN to a maximum dose of 2mg.
Intra-op/Intra-Proc Or naloxone (NARCAN) injection 0.4 mgJump to med 0.4 mg, Intravenous, SEE ADMIN INSTRUCTIONS, Starting on Thu10/30/21 at 1141, Until Thu10/30/21 at 1540
If patient APNEIC and difficult to arouse: Give naloxone 0.4 mg q2 minutes until RR> 8/min and call a 'code blue'. If no response is noted after 4 doses, consider other causes of respiratory depression. Vial to bedside in procedure room. Administer ONLY UNDER THE DIRECTION OF PHYSICIAN to a maximum dose of 2mg.
Intra-op/Intra-Proc Group 2: acetaminophen (TYLENOL) tablet 650 mgJump to med 650 mg, Oral, EVERY 6 HOURS NEEDED, Starting on Thu10/30/21 at 1325, Until Thu10/30/21 at 1657, Mild Pain
Maximum dose of acetaminophen is 4000 mg from all sources in 24 hours.
Post-op/Post-Proc Or ibuprofen (MOTRIN) tablet 400 mgJump to med 400 mg, Oral, EVERY 4 HOURS NEEDED, Starting on Thu10/30/21 at 1325, Until Thu10/30/21 at 1657, Mild Pain
Give with food
Post-op/Post-Proc Group 3: ondansetron (ZOFRAN) tablet 4 mgJump to med 4 mg, Oral, EVERY 6 HOURS NEEDED, Starting on Thu10/30/21 at 1325, Until Thu10/30/21 at 1657, Nausea / Vomiting
Try oral dose form first. May give 1 dose as needed in PACU.
Recovery Or ondansetron 4mg/2ml (ZOFRAN) injection 4 mgJump to med 4 mg, Intravenous, EVERY 6 HOURS NEEDED, Starting on Thu10/30/21 at 1325, Until Thu10/30/21 at 165, Nausea / Vomiting
Try oral dose form first. May give 1 dose as needed in PACU.
Recovery FOR RECORDS PERTAINING TO PATIENTS WHO ARE OR HAVE BEEN ENROLLED IN A CHEMICAL DEPENDENCY/SUBSTANCEABUSE PROGRAM, SOME INFORMATION MAY BE OMITTED. This clinical summary was aggregated from multiple sources. Caution should be exercised in using it in the provision of clinical care. This summary normalizes information from multiple sources, and as a consequence, information in this document may materially change the coding, format and clinical context of patient data. In addition, data may be omitted in some cases. CLINICAL DECISIONS SHOULD BE BASED ON THE PRIMARY CLINICAL RECORDS. [employer] provides no warranty or guarantee of the accuracy or completeness of information in this document.
== END | disposition home or self-care (01) ==
LOC: CT 07:55
PROVIDERS: PCP Family Medicine; Referring Provider Internal Medicine Hematology & Oncology; Visit Provider Internal Medicine Hematology & Oncology
DX: C79.51 Secondary malignant neoplasm of bone (principal); C77.9 Secondary and unspecified malignant neoplasm of lymph node, unspecified; D70.1 Agranulocytosis secondary to cancer chemotherapy; C18.7 Malignant neoplasm of sigmoid colon; T45.1X5A Adverse effect of antineoplastic and immunosuppressive drugs, initial encounter
CPT/HCPCS: 71260; 74177; Q9967

== ENCOUNTER → 2023-05-22 | Outpatient (CLI) | payer MEDICARE, SELFPAY ==
--- NOTE | 2023-05-22 08:17 | CT_ITS ---
EXAM: CT CHEST, ABDOMEN AND PELVIS WITH INTRAVENOUS CONTRAST CLINICAL INDICATION: assess response to treatment met colon ca TECHNIQUE: Helically acquired images were obtained of the chest, abdomen and pelvis with intravenous contrast. This CT exam was performed using one or more of the following dose reduction techniques: automated exposure control, adjustment of the mA and/or kV according to patient size, and/or use of iterative reconstruction technique. CONTRAST: 60 cc of Isovue-370 IV. With oral contrast. RADIATION DOSE: CTDIvol = 10.68 mGy, DLP = 552.95 mGy-cm COMPARISON: No relevant prior studies available. FINDINGS: CHEST: LUNGS AND PLEURAL SPACES: Left upper lobe nodule anteriorly measures 7 mm. Previously it measured 3 mm. Nodule measuring 8.5 mm left lower lobe posteriorly. Previously it measured 4 mm. Nodule measuring 5 mm anteriorly in the right lower lobe is unchanged since previous exam. Nodule measuring 5 mm laterally in the right lower lobe laterally. Previously it measured 2 mm. No pleural effusion or thickening. No pneumothorax. HEART: Coronary artery calcifications. Heart size is normal. No pericardial effusion. MEDIASTINUM: No change severe aneurysmal dilatation of the ascending aorta that measures 6.5 cm in diameter. Normal esophagus. THYROID: Unremarkable. No thyroid lesions. ABDOMEN: LIVER: Large heterogeneously enhancing mass right lobe of liver not significantly changed likely represents a hemangioma. GALLBLADDER AND BILE DUCTS: Unremarkable. No calcified gallstones. No gallbladder distention or wall edema. No intra- or extrahepatic biliary ductal dilation. PANCREAS: Unremarkable. No focal cystic or solid mass. SPLEEN: Unremarkable. Normal size without focal cystic or solid mass. ADRENALS: Status post right adrenalectomy. KIDNEYS AND URETERS: Status post right nephrectomy. STOMACH AND BOWEL: Unremarkable. No stomach or bowel distention. No focal inflammatory change. PELVIS: APPENDIX: No evidence of acute appendicitis. BLADDER: Unremarkable. REPRODUCTIVE: Hysterectomy. CHEST, ABDOMEN and PELVIS: INTRAPERITONEAL SPACE: Unremarkable. No ascites or other fluid collection. No free air. BONES/JOINTS: Unremarkable. No suspicious lytic or blastic abnormality. No change in the expansile mass of the right 12th rib. SOFT TISSUES: Unremarkable. No discrete abdominal or pelvic wall hernia. VASCULATURE: See above. LYMPH NODES: Unremarkable. No enlarged lymph nodes. OTHER FINDINGS: Stable tiny 3 mm nodule involving the minor fissure. CT/CT Chest, Abd, Pel w/Contrast IMPRESSION: 1. Increased number and size of pulmonary nodules. Probable metastatic disease. 2. No change in the expansile mass of the right 12th rib. 3. No change severe aneurysmal dilatation of the ascending aorta that measures 6.5 cm in diameter. 4. Large heterogeneously enhancing mass right lobe of liver not significantly changed likely represents a hemangioma. 5. Hysterectomy. 6. Coronary artery disease. Electronically Signed: Justin Delgadillo MD at 5:48 EDT ,
== END | disposition home or self-care (01) ==
LOC: CT 08:17
PROVIDERS: PCP Family Medicine; Referring Provider Nurse Practitioner Family; Visit Provider Nurse Practitioner Family
DX: C18.7 Malignant neoplasm of sigmoid colon (principal); C78.00 Secondary malignant neoplasm of unspecified lung; C78.7 Secondary malignant neoplasm of liver and intrahepatic bile duct; C79.51 Secondary malignant neoplasm of bone; C77.9 Secondary and unspecified malignant neoplasm of lymph node, unspecified
CPT/HCPCS: 71260; 74177; Q9967

== ENCOUNTER → 2023-09-02 | Outpatient (CLI) | payer MEDICARE, SELFPAY ==
--- NOTE | 2023-09-02 12:30 | CT_ITS ---
EXAM: CT CHEST, ABDOMEN AND PELVIS WITH INTRAVENOUS CONTRAST CLINICAL INDICATION: met colon ca;IV/oral contrast TECHNIQUE: Helically acquired images were obtained of the chest, abdomen and pelvis with intravenous contrast. This CT exam was performed using one or more of the following dose reduction techniques: automated exposure control, adjustment of the mA and/or kV according to patient size, and/or use of iterative reconstruction technique. CONTRAST: IV 75mL Isovue-370 COMPARISON: 05/22/2023 FINDINGS: CHEST: LUNGS AND PLEURAL SPACES: There is a 6 mm right lower lobe pleural-based nodule slightly increased in size compared to prior examination with broad base, previously measuring 4 mm. Unchanged right lower lobe nodule anteriorly near the fissure measuring approximately 4 mm. Unchanged anterior right lower lobe nodule measuring approximate no mediastinal. Unchanged right upper lobe apical nodule measuring approximately 4 mm. Interval increase in size of the anterior left upper lobe pleural-based nodule now measuring 1.5 cm, previously 0.9 cm. 6 mm inferior lingular nodule previously measuring 4 mm. Superior left lower lobe pulmonary nodule now measuring 7 mm, previously 4 mm. Left basilar pleural nodule measures 8 mm, unchanged. Bronchiectasis and scarring in the medial left lower lobe similar to the prior examination. No pneumothorax. HEART: Small pericardial effusion and mild cardiomegaly. Coronary artery calcifications. MEDIASTINUM: No significant abnormality. No mediastinal or hilar adenopathy. Esophagus is unremarkable. No hiatal hernia. THYROID: No significant abnormality. No thyroid lesions. ABDOMEN: LIVER: Heterogenous predominantly low attenuation mass within the posterior right liver is similar to the prior examination. GALLBLADDER AND BILE DUCTS: No significant abnormality. No calcified gallstones. No gallbladder distention or wall edema. No intra- or extrahepatic biliary ductal dilation. PANCREAS: No significant abnormality. No focal cystic or solid mass. SPLEEN: No significant abnormality. Normal size without focal cystic or solid mass. ADRENALS: No significant abnormality. No nodules. KIDNEYS AND URETERS: Status post right nephrectomy. STOMACH AND BOWEL: Colonic diverticulosis without discrete evidence of acute diverticulitis. Moderate colorectal stool. No stomach or bowel distention. PELVIS: APPENDIX: No evidence of acute appendicitis. BLADDER: No significant abnormality. REPRODUCTIVE: Normal as visualized. No mass. CHEST, ABDOMEN and PELVIS: INTRAPERITONEAL SPACE: No significant abnormality. No ascites or other fluid collection. No free air. BONES/JOINTS: Right 12th rib expansile lytic and sclerotic lesion is unchanged. Degenerative changes in the spine. No additional evidence of osseous metastasis. SOFT TISSUES: No significant abnormality. No discrete abdominal or pelvic wall hernia. VASCULATURE: There is a 6.8 cm unruptured ascending aortic aneurysm with additional ectasia of the descending thoracic aorta. No aortic dissection. No obvious central pulmonary embolism although this study was not performed with the pulmonary embolism protocol. LYMPH NODES: No significant abnormality. No enlarged lymph nodes. TUBES, LINES AND DEVICES: Left-sided chest port. CT/CT Chest, Abd, Pel w/Contrast IMPRESSION: 1. Multiple pulmonary nodules, some which have increased size or examination and are most consistent with metastatic disease. 2. There is a 6.8 cm unruptured ascending aortic aneurysm with additional ectasia of the descending thoracic aorta. This is similar to the prior examination. 3. Small pericardial effusion and mild cardiomegaly. Coronary artery calcifications. 4. Heterogenous predominantly low attenuation mass within the posterior right liver is similar to the prior examination. This may be a meningioma. Metastatic disease cannot be excluded. 5. Right 12th rib expansile lytic and sclerotic lesion is unchanged. Degenerative changes in the spine. No additional evidence of osseous metastasis. 6. Status post right nephrectomy. 7. Colonic diverticulosis without discrete evidence of acute diverticulitis. Moderate colorectal stool. Electronically Signed: Iván Giordano DO at 22:16 EDT ,
== END | disposition home or self-care (01) ==
PROVIDERS: PCP Family Medicine; Referring Provider Internal Medicine Hematology & Oncology; Visit Provider Internal Medicine Hematology & Oncology
DX: C18.7 Malignant neoplasm of sigmoid colon (principal); C78.7 Secondary malignant neoplasm of liver and intrahepatic bile duct; C78.01 Secondary malignant neoplasm of right lung; C78.02 Secondary malignant neoplasm of left lung
CPT/HCPCS: 71260; 74177; Q9967; A4216

== ENCOUNTER → 2023-11-03 | Outpatient (CLI) | payer MEDICARE, SELFPAY ==
--- NOTE | 2023-11-03 08:46 | CT_ITS ---
STUDY: CT CHEST, ABDOMEN T PELVIS WITH CONTRAST REASON FOR EXAM: Female, 78 years old. met colon ca; assess response to treatment RADIATION DOSAGE (If Supplied By Facility): CTDIvol = ( 8.49 ) mGy, DLP = ( 522.52 ) mGycm TECHNIQUE: Transaxial imaging was performed following intravenous administration of Oral and amp; IV Readi-CAT and amp; 75mL Isovue-370. Multiplanar coronal and sagittal images were reformatted. Individualized dose optimization techniques were used for this CT. COMPARISON: Comparison is made with prior examination dated September 02, 2023. FINDINGS: CHEST A left-sided portacatheter is seen with the tip in the superior vena cava. There has been an increase in size of the previously seen nodule in the medial superior segment of the left lower lobe as seen on axial image #35. It presently measures 7.7 mm. Interval increase in size of the previously seen pleural-based nodule in the anterior lateral aspect of the left upper lobe measuring 1.5 cm. It previously measured 1.1 cm. Slight interval increased size of the previously seen nodule in the medial aspect of the lingular segment of the left upper lobe adjacent to the heart border as seen on axial image #75. Slight increase in size of the pleural-based nodule in the left lower lobe. Progressive increased linear markings at the lung bases suggestive of either atelectasis and/or scarring. There is a new 7.1 mm nodule in the posterior aspect of the right lower lobe. There is no demonstrated pleural abnormality. There are calcifications of the coronary arteries. Stable small pericardial effusion. Cardiomegaly. Normal mediastinum. Normal hilar regions. Normal unenhanced pulmonary arteries. Once again, there is aneurysmal dilatation of the ascending aorta with a transverse dimension of 6.5 cm. This is unchanged. There are multi-level degenerative changes of the thoracic spine. Stable heterogeneous expansion of the medial aspect of the right rib. ABDOMEN Hepatomegaly. Persistent heterogeneously enhancing mass in the right lobe of the liver extending from the superior aspect of the liver and calculi. This has progressed as compared to prior study. Normal gallbladder and extrahepatic biliary system. Normal spleen. Normal pancreas. Normal bilateral adrenal glands. The patient is status post right nephrectomy and right adrenalectomy. Normal left kidney. Normal visualized stomach. Normal small intestine. There are scattered colonic diverticula consistent with diverticulosis. Large amount of fecal material is seen throughout the colon. There is non-visualization of the appendix. There is diffuse atherosclerotic calcification of the abdominal aorta, without a demonstrated aneurysm. Normal inferior vena cava. Normal retroperitoneum. Normal abdominal wall. There are diffuse degenerative changes of the visualized lumbar spine. Levoscoliosis. PELVIS Normal urinary bladder. There is no pelvic fluid. There is no pelvic lymphadenopathy or mass lesion. There is diffuse atherosclerotic calcification of the pelvic arteries. CT/CT Chest, Abd, Pel w/Contrast IMPRESSION: Interval increase in size of the previously seen pulmonary nodules as described. Progressive heterogeneous mass in the right lobe of the liver as described. Electronically Signed: Azael Barnett MD at 9:52 EDT ,
== END | disposition home or self-care (01) ==
LOC: CT 08:44
PROVIDERS: PCP Family Medicine; Referring Provider Nurse Practitioner Family; Visit Provider Nurse Practitioner Family
DX: C18.7 Malignant neoplasm of sigmoid colon (principal); C78.7 Secondary malignant neoplasm of liver and intrahepatic bile duct; C78.01 Secondary malignant neoplasm of right lung; C78.02 Secondary malignant neoplasm of left lung; C77.8 Secondary and unspecified malignant neoplasm of lymph nodes of multiple regions
CPT/HCPCS: 71260; 74177; Q9967; A4216

== ENCOUNTER 2023-11-05 09:00 | Outpatient (RCR) | payer MEDICARE, SELFPAY ==
[2023-10-29 09:06] VITALS: BP 118/68; PULSE 96; RESP 16; TEMP 36.8
[2023-11-05 09:06] VITALS: BP 119/75; PULSE 95; RESP 18; TEMP 36.1
== END 2023-11-09 23:59 | disposition home or self-care (01) ==
LOC: WC 09:00
PROVIDERS: PCP Family Medicine; Referring Provider Nurse Practitioner Family; Visit Provider Internal Medicine
DX: L98.422 Non-pressure chronic ulcer of back with fat layer exposed (principal); C78.00 Secondary malignant neoplasm of unspecified lung; C78.7 Secondary malignant neoplasm of liver and intrahepatic bile duct; C79.51 Secondary malignant neoplasm of bone; C77.9 Secondary and unspecified malignant neoplasm of lymph node, unspecified; C18.9 Malignant neoplasm of colon, unspecified; J44.9 Chronic obstructive pulmonary disease, unspecified; L59.8 Other specified disorders of the skin and subcutaneous tissue related to radiation; Y84.2 Radiological procedure and radiotherapy as the cause of abnormal reaction of the patient, or of later complication, without mention of misadventure at the time of the procedure; Z79.1 Long term (current) use of non-steroidal anti-inflammatories (NSAID); Z79.899 Other long term (current) drug therapy
CPT/HCPCS: 11042; 87070; 87075; 87077; 87186; 87205; 99213; G0463

== ENCOUNTER 2023-11-09 19:55 | Emergency (ER) | payer MEDICARE, SELFPAY ==
[2023-11-09 19:56] VITALS: BP 139/70; PULSE 95; RESP 18; TEMP 37.5; O2SAT 95
[2023-11-09 19:58] VITALS: BMI 15.9
[2023-11-09 21:55] VITALS: BP 128/78; PULSE 87; RESP 21; O2SAT 95
[2023-11-09 21:56] LABS: Mucous, Urine 0 SEEN /hpf (<or=2+); Squamous Epithelial Cells - UA 0 SEEN /hpf (5-10)
[2023-11-09 21:58] VITALS: BP 142/86; PULSE 82; RESP 20; TEMP 36.8; O2SAT 96
[2023-11-09 22:01] LABS: Color, Urine Yellow (Yellow); Glucose, Dipstick Normal (Normal); Ketone-Dipstick Negative (Negative); Leukocyte Esterase-Dipstick 500 /ul (Negative); Nitrite-Dipstick Positive (Negative); Occult Blood-Urine 25 /ul (Negative); Protein-Dipstick 15 mg/dl (Negative); Urine Bilirubin Dipstick Negative (Negative); Urine Clarity Clear (Clear); Urine Urobilinogen Normal (Normal)
--- NOTE | 2023-11-09 22:05 | RAD_ITS ---
EXAM: XR CHEST, 2 VIEWS CLINICAL INDICATION: Neutropenic Fever TECHNIQUE: Frontal and lateral views of the chest. COMPARISON: 10/14/2023 FINDINGS: LUNGS AND PLEURAL SPACES: Hyperinflated lungs with diffuse interstitial prominence likely secondary to COPD. Superimposed bibasilar pulmonary opacities may be in part due to scarring or fibrosis. Superimposed pneumonia cannot be excluded. No pneumothorax. No effusion. HEART: No significant abnormality. Cardiac silhouette not enlarged. MEDIASTINUM: Central airways and mediastinal contour are unremarkable. BONES/JOINTS: Degenerative changes and scoliotic curvature of the spine. No acute fracture. SOFT TISSUES: No significant abnormality. VASCULATURE: Atherosclerosis. TUBES, LINES AND DEVICES: Left-sided chest port. UPPER ABDOMEN: Surgical clips in the upper abdomen. RAD/Chest PA and Lateral IMPRESSION: Hyperinflated lungs with diffuse interstitial prominence likely secondary to COPD. Superimposed bibasilar pulmonary opacities may be in part due to scarring or fibrosis. Superimposed pneumonia cannot be excluded. Electronically Signed: Iván Giordano DO at 22:18 EDT ,
[2023-11-09 22:07] LABS: White Blood Cells 25-50 SEEN /hpf (0-5)
[2023-11-09 22:08] LABS: Bacteria 4+ /hpf (None Seen); Red Blood Cells-Urine 0-5 SEEN /hpf (0-5)
[2023-11-09 22:12] LABS: Absolute Lymphocyte Count 0.55 X10^3/uL (0.83-4.51); Absolute Neutrophil Count 4.7 X10^3/uL (2.0-7.7); Basophil# 0.04 X10^3/uL; Basophil% 0.6 % (0-1); Eosinophils% 3.1 % (0-5); Hematocrit 32.6 % (37-47); Hemoglobin 10.8 g/dL (12.0-15.0); Lymphocyte # 0.55 X10^3/ul (0.83-4.51); Lymphocyte % 8.5 % (19-41); Mean Corp Hgb Conc 33.1 g/dL (32-36); Mean Corpuscular Hgb 29.4 pg (27.0-32.0); Mean Corpuscular Volume 88.8 fL (81-99); Mean Platelet Vol. 11.5 fl (6.2-12.0); Monocyte# 0.94 X10^3/uL; Monocyte% 14.6 % (0-10); NRBC Flagged by Analyzer 0 % (0-5); Neutrophil % 72.7 % (47-70); POSITIVE DIFFERENTIAL YES; Platelet Count 111 K/mm3 (150-450); RBC Distribution Width CV 17.2 % (11.6-14.6); Red Blood Count 3.67 M/mm3 (4.2-5.4); White Blood Count 6.5 K/mm3 (4.4-11.0)
[2023-11-09 22:15] LABS: International Normalized Ratio 1.2; Partial Thromboplast Time 35.6 Seconds (24.1-36.2)
--- NOTE | 2023-11-09 22:17 | EX.ED.DYSGE1 ---
HPI History of Present Illness Chief Complaint: Fever Informant: patient and spouse/S.O. Narrative Narrative: 78-year-old female presenting to the emergency room with a chief complaint of fever. Patient states that this morning around 630 she had a fever which was reduced with Aleve. She states she otherwise felt okay but generalized achiness throughout the day. Fever returned this evening up to 101.5. She took additional Aleve. She spoke with her oncologist and was sent to emergency. Patient denies any fever sore throat cough diarrhea vomiting nausea or pain. She denies any urinary symptoms. Currently undergoing treatment for metastatic colon cancer. She gets treatment every 13 days. She is due for treatment tomorrow. 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 Skin ulcer of back with fat layer exposed Non-healing wound Back pain Anemia Dehydration Metastasis to bone Wears hearing aid Wears glasses Cancer History of steroid therapy Thyroid disease Arthritis Low iron Non-smoker COPD (chronic obstructive pulmonary disease) Aortic aneurysm Cardiology follow-up encounter Prerenal azotemia Right flank pain Right flank pain Cellulitis of foot Chemotherapy-induced neutropenia Encounter for chemotherapy management Encounter for education Metastasis to lymph nodes Lung metastasis Liver metastasis Cancer of sigmoid colon History of kidney cancer Home Medications ?Medication ?Instructions ?Recorded ?Last Taken ?Type liothyronine 5 mcg tablet 7.5 mcg PO BID 11/08/21 06/12/22 04:45 History loratadine 10 mg tablet (Allergy 10 mg PO PRN PRN Allergy Symptoms 11/08/21 Unknown History Relief (loratadine)) diphenhydramine HCl 25 mg capsule 25 mg PO QHS PRN Insomnia 12/24/21 Unknown History (ZzzQuil) acetaminophen 500 mg tablet 500 mg PO Q6H PRN Pain 03/18/22 Unknown History (Tylenol Extra Strength) ibuprofen 200 mg tablet 200 mg PO Q6H PRN Pain 07/15/22 Unknown History lidocaine-prilocaine 2.5 %-2.5 % 1 applic topical ONCE PRN port 12/23/22 Unknown Rx topical cream access 30 days #30 grams cefpodoxime 200 mg tablet 200 mg PO BID #14 tabs 11/09/23 Unknown Rx ondansetron HCl 8 mg tablet 8 mg PO Q8H PRN nausea and vomiting 11/09/23 Unknown History Allergy/AdvReac Type Severity Reaction Status Date / Time morphine Allergy unknown Verified 11/09/23 19:56 alendronate sodium AdvReac joint pain Verified 11/09/23 19:56 risedronate sodium AdvReac Pain in Verified 11/09/23 19:56 joints Family History Mother Breast cancer Brother Lung cancer Aunt Breast cancer Surgical History History of nephrectomy, right History of insertion of tunneled central venous catheter (CVC) with port Hx of hysterectomy Social History household members: spouse Smoking Status: Never smoker alcohol intake: never substance use type: does not use ROS ROS ED Constitutional Constitutional ED: Reports fever(s); Denies chills or weight loss Eyes Eyes: Denies change in vision or diplopia ENT ENT ED: Denies ear pain, rhinorrhea or sore throat Cardiovascular Cardiovascular: Denies chest pain, orthopnea, palpitations or racing heartbeat Respiratory/Chest Respiratory/Chest: Denies cough, dyspnea or orthopnea Gastrointestinal Gastrointestinal: Denies abdominal pain, diarrhea, nausea or vomiting Genitourinary Genitourinary ED: Denies dysuria, hematuria or urinary frequency Musculoskeletal Musculoskeletal: Reports myalgias; Denies arthralgias, back pain or neck pain Integumentary Reports other Details: Chronic wound to the mid lower thoracic back ; Denies abscess or rash Neurologic Neurologic: Denies headache(s) or weakness Psychiatric Psychiatric: Denies anxiety, depression, suicidal ideation or suicidal thoughts Endocrine Endocrinology: Denies polydipsia, polyphagia or polyuria Allergic/Immunologic Allergic/Immunologic ED: Denies mouth swelling, tongue swelling or urticaria EXAM Physical Exam Const Vital Signs: 11/09/23 19:56 11/09/23 20:48 11/09/23 21:17 Temperature 99.5 F H Temperature Source Oral Pulse Rate 95 Respiratory Rate 18 Respiratory Effort Normal Respiratory Pattern Normal Blood Pressure 139/70 H Blood Pressure Mean 93 Pulse Ox 95 Oxygen Delivery Method Room Air Room Air 11/09/23 21:55 11/09/23 21:58 11/09/23 22:35 Temperature 98.2 F Temperature Source Oral Pulse Rate 87 82 Respiratory Rate 21 H 20 H Respiratory Effort Normal Respiratory Pattern Normal Blood Pressure 128/78 H 142/86 H Blood Pressure Mean 94 104 Pulse Ox 95 96 Oxygen Delivery Method Room Air Room Air 11/09/23 23:00 11/09/23 23:54 Temperature 98.4 F Temperature Source Pulse Rate 91 90 Respiratory Rate 19 H 19 H Respiratory Effort Respiratory Pattern Blood Pressure 134/76 H 142/81 H Blood Pressure Mean 95 101 Pulse Ox 95 94 Oxygen Delivery Method Room Air Positive well nourished and well developed General Appearance ED: well developed HEENT Reports normocephalic, head/scalp atraumatic and moist mucous membranes Eyes PERRL and EOMs intact bilaterally Neck no lymphadenopathy, supple and no JVD Resp normal respiratory effort and clear to auscultation bilaterally Cardio regular rate, regular rhythm and no murmurs GI normal to inspection, nondistended, normoactive bowel sounds and non-tender Palpation: soft Back/Spine no CVA tenderness and normal ROM Extremity normal to inspection General Extremety ED: Negative for edema General Extremity: Negative for edema Neuro oriented x3 and CN's II-XII intact bilaterally Sensorium / Orientation: alert Motor Exam: strength 5/5 throughout Psych mental status grossly normal Mood & Affect: Negative for depressed or tearful Skin no rashes or lesions noted Skin Narrative: There is a chronic wound to the midline in the lower thoracic back. This area is without erythema or foul smell. There is granulation tissue present. This area measures about 3 cm in a vertically orientated elliptical fashion MDM MDM MDM Narrative Medical decision making narrative: Differential diagnosis includes but not limited to UTI viral syndrome pneumonia bacteremia sepsis dehydration electrolyte abnormalities White count 6.5 hemoglobin 10.8 platelet count is 111. INR 1.2 PTT 35.6 sodium noted to be 132 BUN 28 creatinine 0.74. Glucose 113 lactic acid is normal at 1.1. Alkaline phosphatase elevated at 496. Urinalysis demonstrates 4+ bacteria 25-50 white cells positive nitrates. Blood and urine cultures were sent. Patient received Rocephin IV. My independent interpretation the chest x-ray is no acute process. COVID influenza and RSV swabs are negative. I attempted to reach the patient's oncologist to notify them of the patient's findings and that she would most likely not be able to receive chemotherapy tomorrow. Patient will be discharged home at this time as she is otherwise well-appearing fevers controlled. I will be placing her on cefpodoxime. History & Record Review Discussion w/independent historian: Patient and Significant other Additional record(s) reviewed:: Prior labs Lab Data Attestation: I reviewed the patient's lab results. Labs: Laboratory Results - last 24 hr 11/09/23 21:49 WBC 6.5 RBC 3.67 L Hgb 10.8 L Hct 32.6 L MCV 88.8 MCH 29.4 MCHC 33.1 RDW Std Deviation 55.0 H RDW Coeff of Henry 17.2 H Plt Count 111 L MPV 11.5 Immature Gran % (Auto) 0.500 Neut % (Auto) 72.7 H Lymph % (Auto) 8.5 L [place] % (Auto) 14.6 H Eos % (Auto) 3.1 Baso % (Auto) 0.6 Absolute Neuts (auto) 4.7 Absolute Lymphs (auto) 0.55 L Nucleated RBC % 0 PT 15.0 H INR 1.2 APTT 35.6 Sodium 132 L Potassium 4.4 Chloride 103 Carbon Dioxide 20.0 L Anion Gap 9 BUN 28 H Creatinine 0.74 Estim Creat Clear Calc 33.91 Est GFR (MDRD) Af Amer 97 Est GFR (MDRD) Non-Af 80 BUN/Creatinine Ratio 37.8 H Glucose 113 H Lactic Acid 1.1 Calcium 8.9 Total Bilirubin 0.50 AST 67 H ALT 42 Alkaline Phosphatase 496 H Total Protein 6.5 Albumin 2.8 L Globulin 3.7 Albumin/Globulin Ratio 0.8 L Urine Color Yellow Urine Clarity Clear Urine pH 6.0 Ur Specific [place] 1.020 Urine Protein 15 H Urine Glucose (UA) Normal Urine Ketones Negative Urine Occult Blood 25 H Urine Nitrite Positive H Urine Bilirubin Negative Urine Urobilinogen Normal Ur Leukocyte Esterase 500 H Urine RBC 0-5 SEEN Urine WBC 25-50 SEEN Ur Squamous Epith Cells 0 SEEN Urine Bacteria 4+ Urine Mucus 0 SEEN Radiography Diagnostic Testing: Clinical Impression(s) from Imaging Studies Chest X-Ray 11/09/23 22:05 IMPRESSION: Hyperinflated lungs with diffuse interstitial prominence likely secondary to COPD. Superimposed bibasilar pulmonary opacities may be in part due to scarring or fibrosis. Superimposed pneumonia cannot be excluded. Electronically Signed: Iván Giordano DO at 22:18 EDT , Discharge Plan Triage Chief Complaint: Fever ED Provider: William Braun Dx/Rx/DC Orders Clinical Impression: Colon cancer metastasized to multiple sites, Acute UTI Instructions: UTIs Understanding Prescriptions: New cefpodoxime 200 mg tablet 200 mg PO BID Qty: 14 0RF Rx Instructions: must administer with a meal/food No Action liothyronine 5 mcg tablet 7.5 mcg PO BID loratadine [Allergy Relief (loratadine)] 10 mg tablet 10 mg PO PRN PRN (Reason: Allergy Symptoms) diphenhydramine HCl [ZzzQuil] 25 mg capsule 25 mg PO QHS PRN (Reason: Insomnia) acetaminophen [Tylenol Extra Strength] 500 mg tablet 500 mg PO Q6H PRN (Reason: Pain) ibuprofen 200 mg tablet 200 mg PO Q6H PRN (Reason: Pain) lidocaine-prilocaine 2.5-2.5 % cream 1 applic topical ONCE PRN (Reason: port access) 30 Days Qty: 30 2RF ondansetron HCl 8 mg tablet 8 mg PO Q8H PRN (Reason: nausea and vomiting) Primary Care Provider: Minda Madden Referrals: Minda Madden MD [Primary Care Provider] - Angeline Sheppard MD [Med Staff - Active Staff] - (Please call tomorrow morning to let them know you were diagnosed with a urinary tract infection and had a fever.) Activity Restrictions/Additional Instructions: Please call your oncologist tomorrow and let them know you are diagnosed with a UTI and had a fever. Continue Tylenol or Motrin for fever control. Drink plenty of fluids to stay hydrated. Take entire course of antibiotics unless directed otherwise. Print Language: Ug[place]an Disposition Disposition: Home, Self Care
[2023-11-09 22:20] LABS: ALB/GLOB Ratio 0.8 RATIO (0.9-2.4); AST(SGOT) 67 U/L (15-37); Alanine Aminotransfer ALT/SGPT 42 U/L (13-56); Albumin, Serum 2.8 g/dL (3.2-5.0); Alkaline Phosphatase 496 U/L (45-117); Anion Gap 9 (5-15); BUN 28 mg/dL (7-18); BUN/Creat Ratio 37.8 RATIO (10-20); Calcium,Total 8.9 mg/dL (8.5-10.1); Chloride 103 mmol/L (98-107); Creatinine, Serum 0.74 mg/dL (0.55-1.02); EST Glomerular Filtration Rate 80 mL/min (>60); Est Glom Filt Rate - Afr Amer 97 mL/min (>60); Estimated Creatinine Clearance 33.91 ml/min; Globulin 3.7 g/dL (2.2-4.2); Glucose 113 mg/dL (74-106); Potassium 4.4 mmol/L (3.5-5.1); Protein, Total 6.5 g/dL (6.4-8.2); Sodium Level 132 mmol/L (136-145)
[2023-11-09 22:26] LABS: Lactic Acid 1.1 mmol/L (0.4-1.9)
[2023-11-09] MEDS: Ceftriaxone 1 GM/50 ML BAG IV (22:33)
[2023-11-09 23:00] VITALS: BP 134/76; PULSE 91; RESP 19; O2SAT 95
[2023-11-09 23:54] VITALS: BP 142/81; PULSE 90; RESP 19; TEMP 36.9; O2SAT 94
== END 2023-11-10 00:17 | disposition home or self-care (01) ==
LOC: ED 11-10 00:09
PROVIDERS: Emergency Provider Emergency Medicine; PCP Family Medicine; Visit Provider Emergency Medicine
DX: R50.9 Fever, unspecified (principal); C18.9 Malignant neoplasm of colon, unspecified; J44.9 Chronic obstructive pulmonary disease, unspecified; N39.0 Urinary tract infection, site not specified; Z92.21 Personal history of antineoplastic chemotherapy; Z90.710 Acquired absence of both cervix and uterus; Z90.5 Acquired absence of kidney
CPT/HCPCS: 71046; 80053; 81001; 83605; 85025; 85610; 85730; 87077; 87086; 87088; 87186; 87631; 96365; 99284; J7050; A4216

== ENCOUNTER 2023-12-10 09:15 | Outpatient (RCR) | payer MEDICARE, SELFPAY ==
[2023-11-10 00:26] VITALS: BP 119/75; PULSE 95; RESP 18; TEMP 36.1
[2023-11-19 09:17] VITALS: BP 121/73; PULSE 98; RESP 18; TEMP 36.4
--- NOTE | 2023-11-19 12:14 | PCM.WC.PN ---
History of Present Illness Date of Service: 11/19/23 Chief Complaint: Back Ulcer History of Wound: Ms. Toledo is a 77-year-old referred to the wound center by her oncologist due to nonhealing back ulcer. She states that as a baby, she had radiation to the back area due to a birthmark. She had no concerns until about a year ago when she had radiations for management of metastatic colon cancer. Since September 2022, there has been an open area which has not healed. No significant drainage. Some pain. Actively receiving chemotherapy. No chills or fever however, she states that her appetite is fair. Currently taking Ensure twice daily and had taken Kirk in the past. Progress of Wound: No acute concerns at this time. Spouse states that he has been applying nickel thick amount of Santyl and covering with moistened gauze. Objective Data Objective Data Vital Signs: Vital Signs Temp Pulse Resp BP O2 Del Method 97.6 F L 98 18 121/73 H Room Air 11/19/23 09:17 11/19/23 09:17 11/19/23 09:17 11/19/23 09:17 11/19/23 09:17 Oxygen Delivery Method Room Air Charges/Coding Procedures Integumentary [id number]: [id number] Sarah subq tissue 20 sq cm/< Physical Exam Const alert, oriented x3 and no apparent distress General Appearance: cooperative and comfortable HEENT normocephalic, head/scalp atraumatic and hearing grossly normal bilaterally Eyes EOMs intact bilaterally Neck full ROM General: normal visual inspection Resp normal respiratory effort Effort and Inspection: able to speak in complete sentences Extremity no pedal edema Skin Wounds: wounds noted size Size: See Clinical note, bed yellow and with slough, margins well defined, no odor and open Neuro oriented x3, CN's II-XII intact bilaterally and moves all extremities Psych mental status grossly normal, thought process normal, cooperative and affect normal Debridement Note Debridement Note Wound debrided: Back Type of Debridement: Excisional debridement Anesthesia Used: 5% Lidocaine Gel Depth: Down to and including healthy tissue and in the subcutaneous layer Percentage of wound debrided: 100 Instrument Used: 5mm curette Tissue Removed: Slough and devitalized tissue Severity: Fat Layer Exposed Amount of bleeding with debridement: Mild Bleeding Controlled with: Pressure Patient tolerated procedure: Patient tolerated procedure well Post-Debridement Measurements and Additional Note: Post-Debridement Measurements/Treatment WC - Nurse 1 - General Ulcer Assessment Start: 11/19/23 09:17 Freq: Status: Active Protocol: PILLO Activity Type Activity Date Activity User E-sign Co-sign Detail Recorded Client Recorded Date Recorded By Document 11/19/23 09:17 KW [id number] 11/19/23 09:24 KW 11/19/23 09:17 WC - Today's Visit Information Type of service Follow-up Visit (Physician/CIVIL [employer] ) Arrival Mode Ambulatory Accompanied by Patient Identification Verified (Name & Yes ) Vital Signs Temperature (97.8 F-99.1 F) 97.6 F L Temperature Source Temporal Pulse Rate (60-100) 98 Pulse Location Monitor Respiratory Rate (12-18) 18 Respiratory rate source Observation Oxygen Delivery Method Room Air Blood Pressure (90/60-120/80) 121/73 H Blood Pressure Mean (mm Hg) 89 Source Monitor Position Sitting Blood Pressure Location Left Arm History Since Last Visit- (Skip if this is Patient's initial visit) Have you changed medications since your No last visit? Any new allergies or adverse reactions No Had a fall/change in ADL's that may No increase risk of falls Signs or symptoms of abuse and/or No neglect since last visit Have you been in the hospital since your No last visit? Has dressing in place as prescribed Yes Has compression in place as prescribed N/A Has offloadiing in place as prescribed N/A Experienced any changes in pain level or No management Left Footwear Regular Shoe Right Footwear Regular Shoe Pain Scale: 0-10 Numeric Is Patient Pain Free? Yes MARYAN - Nurse 1 - General Ulcer Measurement Start: 11/19/23 09:17 Freq: Status: Active Protocol: Activity Type Activity Date Activity User E-sign Co-sign Detail Recorded Client Recorded Date Recorded By Document 11/19/23 09:17 KW [id number] 11/19/23 09:24 KW 11/19/23 09:17 Wound Center Nurse 1 lower mid back -Current Size (cm) - Length 2.3 -Current Size (cm) - Width 1.2 -Current Size (cm) - Depth 0.1 -Total Square Cm 2.76 -Exudate Amt Small -Exudate Type Serosanguineous -Wound Margin Distinct, Outline Attached -Granulation Amt None Present (0 %) -Necrosis Amt Large (67-100%) -Necrotic Tissue Type Adherent Slough -Texture (Zora-wound Skin Appearance) Assessed -Moisture (Zora-wound Skin Appearance) Assessed -Color (Zora-wound Skin Appearance) Assessed -Temperature (Zora-wound Skin No Abnormality Appearance) (Pt Warm) -Tenderness on Palpation (Zora-wound No Skin Appearance) -Ulcer Cleansing Rinsed/ Irrigated with Saline -Foul Odor after Cleansing No -Anesthetic Used 5% Lidocaine Gel MARYAN - Nurse 2 - General Ulcer CM Notes Start: 11/19/23 09:17 Freq: Status: Active Protocol: Activity Type Activity Date Activity User E-sign Co-sign Detail Recorded Client Recorded Date Recorded By Document 11/19/23 09:36 GM [id number] 11/19/23 09:40 GM Edit Result 11/19/23 09:36 GM (1) [id number] 11/19/23 09:41 GM (1) lower mid back - Post Debridement (cm) - Width 1.8 => 1.3 - Total Square (Post) (cm) 4.50 => 3.25 - Area of Debridement (cm) - Width 1.8 => 1.3 - Total Square (Area) (cm) 4.50 => 3.25 11/19/23 09:36 Wound Center Nurse 2 -Time 09:36 -Correct Patient Yes -Correct Side, Site, Position Yes -Correct Procedure Yes -Procedure Performed Yes -Type of Procedure Debridement -Clinical Debridement Subcutaneous -Tissue Removed Subcutaneous -Post Debridement (cm) - Length 2.5 -Post Debridement (cm) - Width 1.3 -Post Debridement (cm) - Depth 0.1 -Total Square (Post) (cm) 3.25 -Area of Debridement (cm) - Length 2.5 -Area of Debridement (cm) - Width 1.3 -Total Square (Area) (cm) 3.25 -Tunneling No -Undermining/Tunneling No -Circular Undermining No -Wound/Ulcer Outcome Not Healed -Ulcer Cleansing Rinsed/ Irrigated with Saline -Foul Odor after Cleansing No -Bioengineered Tissue No -Bleeding Controlled with Pressure -Treatment Response Procedure Tolerated Well -Debridement - Subq, 1st 20sq cm Yes Pain Scale: 0-10 Numeric Is Patient Pain Free? Yes MARYAN - Nurse 3 - General Ulcer D/C NN Start: 11/19/23 09:17 Freq: Status: Active Protocol: Activity Type Activity Date Activity User E-sign Co-sign Detail Recorded Client Recorded Date Recorded By Document 11/19/23 09:53 [facility] [id number] 11/19/23 09:54 [facility] 11/19/23 09:53 Wound Care Center Nurse 3 lower mid back -Ulcer Cleansing Rinsed/ Irrigated with Saline -Foul Odor after Cleansing No -Other Dressing santyl, abd pad -Primary Dressing Covered/Secured with Secured with Tape Pain Scale: 0-10 Numeric Is Patient Pain Free? Yes WC - Visit Discharge Discharge Condition Stable Ambulatory Status Ambulatory Transportation Private Auto Accompanied by husb Assessment/Plan Assessment/Plan (1) Skin ulcer of back with fat layer exposed: CODE(S): L98.422 - Non-pressure chronic ulcer of back with fat layer exposed (2) Radiation necrosis of skin and subcutaneous: CODE(S): L59.8 - Other specified disorders of the skin and subcutaneous tissue related to radiation; Y84.2 - Radiological procedure and radiotherapy as the cause of abnormal reaction of the patient, or of later complication, without mention of misadventure at the time of the procedure (3) Delayed effect of radiation: CODE(S): T66.XXXS - Radiation sickness, unspecified, sequela (4) Colon cancer metastasized to multiple sites: CODE(S): C18.9 - Malignant neoplasm of colon, unspecified PLAN: Plan Debridement done as documented above, procedure was well-tolerated. Slightly less slough but still significant amount. No significant change in circumference. Continue Santyl, apply nickel thick daily, cover with moistened gauze. Continue Ensure or Kirk twice daily and optimal dietary intake. Continue other chronic wound care as previously discussed. Remains on chemotherapy. Their questions were answered and they were advised to let us know if they have any further questions or concerns. Follow-up in 1 week. This note was generated with [employer] dictation software. It may contain incorrect words, spelling, and punctuation that were not noted in checking the note before signing.
[2023-11-26 09:24] VITALS: BP 141/79; PULSE 89; RESP 18; TEMP 36.6
--- NOTE | 2023-11-26 09:51 | PCM.WC.PN ---
History of Present Illness Date of Service: 11/26/23 Chief Complaint: Back Ulcer History of Wound: Ms. Toledo is a 77-year-old referred to the wound center by her oncologist due to nonhealing back ulcer. She states that as a baby, she had radiation to the back area due to a birthmark. She had no concerns until about a year ago when she had radiations for management of metastatic colon cancer. Since September 2022, there has been an open area which has not healed. No significant drainage. Some pain. Actively receiving chemotherapy. No chills or fever however, she states that her appetite is fair. Currently taking Ensure twice daily and had taken Kirk in the past. Progress of Wound: No acute concerns at this time. Dressing changes done as recommended per spouse. Seems to be better granulation tissue on examination. No significant drainage or worsening pain reported. Objective Data Objective Data Vital Signs: Vital Signs Temp Pulse Resp BP O2 Del Method 97.9 F 89 18 141/79 H Room Air 11/26/23 09:24 11/26/23 09:24 11/26/23 09:24 11/26/23 09:24 11/26/23 09:24 Oxygen Delivery Method Room Air Charges/Coding Procedures Integumentary 111xxx-113xx: 05368 Sarah subq tissue 20 sq cm/< Physical Exam Const alert, oriented x3 and no apparent distress General Appearance: cooperative and comfortable HEENT normocephalic, head/scalp atraumatic and hearing grossly normal bilaterally Eyes EOMs intact bilaterally Neck full ROM General: normal visual inspection Resp normal respiratory effort Effort and Inspection: able to speak in complete sentences Extremity no pedal edema Skin Wounds: wounds noted size Size: See Clinical note, bed yellow and with slough, margins well defined, no odor and open Neuro oriented x3, CN's II-XII intact bilaterally and moves all extremities Psych mental status grossly normal, thought process normal, cooperative and affect normal Debridement Note Debridement Note Wound debrided: Back Type of Debridement: Excisional debridement Anesthesia Used: 5% Lidocaine Gel Depth: Down to and including healthy tissue and in the subcutaneous layer Percentage of wound debrided: 100 Instrument Used: 5mm curette Tissue Removed: Slough and devitalized tissue Severity: Fat Layer Exposed Amount of bleeding with debridement: Mild Bleeding Controlled with: Pressure Patient tolerated procedure: Patient tolerated procedure well Post-Debridement Measurements and Additional Note: Post-Debridement Measurements/Treatment - Nurse 1 - General Ulcer Assessment Start: 11/19/23 09:17 Freq: Status: Active Protocol: PILLO Activity Type Activity Date Activity User E-sign Co-sign Detail Recorded Client Recorded Date Recorded By Document 11/19/23 09:17 KW [id number] 11/19/23 09:24 KW Document 11/26/23 09:24 DS [id number] 11/26/23 09:34 DS 11/19/23 11/26/23 09:17 09:24 WC - Today's Visit Information Type of service Follow-up Visit Follow-up Visit (Physician/DIRECTOR OF SALES AND MARKETING (Physician/DIRECTOR OF SALES AND MARKETING ) ) Arrival Mode Ambulatory Ambulatory Accompanied by Patient Identification Verified (Name & Yes ) Vital Signs Temperature (97.8 F-99.1 F) 97.6 F L 97.9 F Temperature Source Temporal Temporal Pulse Rate (60-100) 98 89 Pulse Location Monitor Monitor Respiratory Rate (12-18) 18 18 Respiratory rate source Observation Observation Oxygen Delivery Method Room Air Room Air Blood Pressure (90/60-120/80) 121/73 H 141/79 H Blood Pressure Mean (mm Hg) 89 99 Source Monitor Monitor Position Sitting Sitting Blood Pressure Location Left Arm Left Arm History Since Last Visit- (Skip if this is Patient's initial visit) Have you changed medications since your No No last visit? Any new allergies or adverse reactions No No Had a fall/change in ADL's that may No No increase risk of falls Signs or symptoms of abuse and/or No No neglect since last visit Have you been in the hospital since your No No last visit? Has dressing in place as prescribed Yes Yes Has compression in place as prescribed N/A N/A Has offloadiing in place as prescribed N/A N/A Experienced any changes in pain level or No No management Left Footwear Regular Shoe Regular Shoe Right Footwear Regular Shoe Regular Shoe Pain Scale: 0-10 Numeric Is Patient Pain Free? Yes Yes - Nurse 1 - General Ulcer Measurement Start: 11/19/23 09:17 Freq: Status: Active Protocol: Activity Type Activity Date Activity User E-sign Co-sign Detail Recorded Client Recorded Date Recorded By Document 11/19/23 09:17 KW [id number] 11/19/23 09:24 KW Document 11/26/23 09:24 DS [id number] 11/26/23 09:34 DS 11/19/23 11/26/23 09:17 09:24 Wound Center Nurse 1 lower mid back -Current Size (cm) - Length 2.3 2.5 -Current Size (cm) - Width 1.2 1.4 -Current Size (cm) - Depth 0.1 0.1 -Total Square Cm 2.76 3.50 -Photo Taken No -Tunneling No -Undermining/Tunneling No -Circular Undermining No -Exudate Amt Small -Exudate Type Serosanguineous -Wound Margin Distinct, Distinct, Outline Outline Attached Attached -Granulation Amt None Present (0 %) -Necrosis Amt Large (67-100%) Large (67-100%) -Necrotic Tissue Type Adherent Slough Adherent Slough -Texture (Zora-wound Skin Appearance) Assessed Assessed -Moisture (Zora-wound Skin Appearance) Assessed Assessed -Color (Zora-wound Skin Appearance) Assessed Assessed -Temperature (Zora-wound Skin No Abnormality No Abnormality Appearance) (Pt Warm) (Pt Warm) -Tenderness on Palpation (Zora-wound No No Skin Appearance) -Ulcer Cleansing Rinsed/ Soap and Water Irrigated with Saline -Foul Odor after Cleansing No -Anesthetic Used 5% Lidocaine 5% Lidocaine Gel Gel WC - Nurse 2 - General Ulcer CM Notes Start: 11/19/23 09:17 Freq: Status: Active Protocol: Activity Type Activity Date Activity User E-sign Co-sign Detail Recorded Client Recorded Date Recorded By Document 11/19/23 09:36 GM [id number] 11/19/23 09:40 GM Edit Result 11/19/23 09:36 GM (1) [id number] 11/19/23 09:41 GM Document 11/26/23 09:43 GM [id number] 11/26/23 09:48 GM (1) lower mid back - Post Debridement (cm) - Width 1.8 => 1.3 - Total Square (Post) (cm) 4.50 => 3.25 - Area of Debridement (cm) - Width 1.8 => 1.3 - Total Square (Area) (cm) 4.50 => 3.25 11/19/23 11/26/23 09:36 09:43 Wound Center Nurse 2 lower mid back -Time 09:44 -Correct Patient Yes Yes -Correct Side, Site, Position Yes Yes -Correct Procedure Yes Yes -Procedure Performed Yes Yes -Type of Procedure Debridement Debridement -Clinical Debridement Subcutaneous Subcutaneous -Tissue Removed Subcutaneous Subcutaneous -Post Debridement (cm) - Length 2.5 2.4 -Post Debridement (cm) - Width 1.3 1.4 -Post Debridement (cm) - Depth 0.1 0.1 -Total Square (Post) (cm) 3.25 3.36 -Area of Debridement (cm) - Length 2.5 2.4 -Area of Debridement (cm) - Width 1.3 1.4 -Total Square (Area) (cm) 3.25 3.36 -Tunneling No No -Undermining/Tunneling No No -Circular Undermining No No -Wound/Ulcer Outcome Not Healed Not Healed -Ulcer Cleansing Rinsed/ Rinsed/ Irrigated with Irrigated with Saline Saline -Foul Odor after Cleansing No No -Bioengineered Tissue No No -Bleeding Controlled with Pressure Pressure -Treatment Response Procedure Procedure Tolerated Well Tolerated Well -Debridement - Subq, 1st 20sq cm Yes Yes Pain Scale: 0-10 Numeric Is Patient Pain Free? Yes Yes - Nurse 3 - General Ulcer D/C NN Start: 11/19/23 09:17 Freq: Status: Active Protocol: Activity Type Activity Date Activity User E-sign Co-sign Detail Recorded Client Recorded Date Recorded By Document 11/19/23 09:53 [facility] [id number] 11/19/23 09:54 [facility] 11/19/23 09:53 Wound Care Center Nurse 3 lower mid back -Ulcer Cleansing Rinsed/ Irrigated with Saline -Foul Odor after Cleansing No -Other Dressing santyl, abd pad -Primary Dressing Covered/Secured with Secured with Tape Pain Scale: 0-10 Numeric Is Patient Pain Free? 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 (2) Radiation necrosis of skin and subcutaneous: CODE(S): L59.8 - Other specified disorders of the skin and subcutaneous tissue related to radiation; Y84.2 - Radiological procedure and radiotherapy as the cause of abnormal reaction of the patient, or of later complication, without mention of misadventure at the time of the procedure (3) Delayed effect of radiation: CODE(S): T66.XXXS - Radiation sickness, unspecified, sequela (4) Colon cancer metastasized to multiple sites: CODE(S): C18.9 - Malignant neoplasm of colon, unspecified PLAN: Plan Debridement done as documented above, procedure was well-tolerated. Continues to show some improvement in slough burden. Some granulation tissue noted today. Very modest change in circumference. Continue Santyl, apply nickel thick daily, cover with moistened gauze. Continue Ensure or Kirk twice daily and optimal dietary intake. Continue other chronic wound care as previously discussed. Remains on chemotherapy. Their questions were answered and they were advised to let us know if they have any further questions or concerns. Follow-up in 2 weeks. This note was generated with [employer] dictation software. It may contain incorrect words, spelling, and punctuation that were not noted in checking the note before signing.
[2023-12-10 09:12] VITALS: BP 125/76; PULSE 94; RESP 18; TEMP 36.3
--- NOTE | 2023-12-10 09:43 | PN.PCM_ITS ---
History of Present Illness Date of Service: 12/10/23 Chief Complaint: Back Ulcer History of Wound: Ms. Toledo is a 77-year-old referred to the wound center by her oncologist due to nonhealing back ulcer. She states that as a baby, she had radiation to the back area due to a birthmark. She had no concerns until about a year ago when she had radiations for management of metastatic colon cancer. Since September 2022, there has been an open area which has not healed. No significant drainage. Some pain. Actively receiving chemotherapy. No chills or fever however, she states that her appetite is fair. Currently taking Ensure twice daily and had taken Kirk in the past. Progress of Wound: Stable. No significant change or concerns reported. Objective Data Objective Data Vital Signs: Vital Signs Temp Pulse Resp BP O2 Del Method 97.4 F L 94 18 125/76 H Room Air 12/10/23 09:12 12/10/23 09:12 12/10/23 09:12 12/10/23 09:12 12/10/23 09:12 Oxygen Delivery Method Room Air Charges/Coding Procedures Integumentary 111xxx-113xx: 04251 Sarah subq tissue 20 sq cm/< Physical Exam Const alert, oriented x3 and no apparent distress General Appearance: cooperative and comfortable HEENT normocephalic, head/scalp atraumatic and hearing grossly normal bilaterally Eyes EOMs intact bilaterally Neck full ROM General: normal visual inspection Resp normal respiratory effort Effort and Inspection: able to speak in complete sentences Extremity no pedal edema Skin Wounds: wounds noted size Size: See Clinical note, bed yellow and with slough, margins well defined, no odor and open Neuro oriented x3, CN's II-XII intact bilaterally and moves all extremities Psych mental status grossly normal, thought process normal, cooperative and affect normal Debridement Note Debridement Note Wound debrided: Back Type of Debridement: Excisional debridement Anesthesia Used: 4% Lidocaine Solution Depth: Down to and including healthy tissue and in the subcutaneous layer Percentage of wound debrided: 100 Instrument Used: 5mm curette Tissue Removed: Slough and devitalized tissue Severity: Fat Layer Exposed Amount of bleeding with debridement: Mild Bleeding Controlled with: Pressure Patient tolerated procedure: Patient tolerated procedure well Post-Debridement Measurements and Additional Note: Post-Debridement Measurements/Treatment WC - Nurse 1 - General Ulcer Assessment Start: 11/19/23 09:17 Freq: Status: Active Protocol: MARYAN.LOWJONATHANT Activity Type Activity Date Activity User E-sign Co-sign Detail Recorded Client Recorded Date Recorded By Document 11/19/23 09:17 KW [id number] 11/19/23 09:24 KW Document 11/26/23 09:24 DS [id number] 11/26/23 09:34 DS Document 12/10/23 09:12 KW [id number] 12/10/23 09:16 KW 11/19/23 11/26/23 12/10/23 09:17 09:24 09:12 - Today's Visit Information Type of service Follow-up Visit Follow-up Visit Follow-up Visit (Physician/CITRIX ENGINEER (Physician/CITRIX ENGINEER (Physician/CITRIX ENGINEER ) ) ) Arrival Mode Ambulatory Ambulatory Ambulatory Accompanied by Patient Identification Verified (Name & Yes Yes ) Vital Signs Temperature (97.8 F-99.1 F) 97.6 F L 97.9 F 97.4 F L Temperature Source Temporal Temporal Temporal Pulse Rate (60-100) 98 89 94 Pulse Location Monitor Monitor Monitor Respiratory Rate (12-18) 18 18 18 Respiratory rate source Observation Observation Observation Oxygen Delivery Method Room Air Room Air Room Air Blood Pressure (90/60-120/80) 121/73 H 141/79 H 125/76 H Blood Pressure Mean (mm Hg) 89 99 92 Source Monitor Monitor Monitor Position Sitting Sitting Sitting Blood Pressure Location Left Arm Left Arm Right Arm History Since Last Visit- (Skip if this is Patient's initial visit) Have you changed medications since your No No No last visit? Any new allergies or adverse reactions No No No Had a fall/change in ADL's that may No No No increase risk of falls Signs or symptoms of abuse and/or No No No neglect since last visit Have you been in the hospital since your No No No last visit? Has dressing in place as prescribed Yes Yes Yes Has compression in place as prescribed N/A N/A N/A Has offloadiing in place as prescribed N/A N/A N/A Experienced any changes in pain level or No No No management Left Footwear Regular Shoe Regular Shoe Regular Shoe Right Footwear Regular Shoe Regular Shoe Regular Shoe Pain Scale: 0-10 Numeric Is Patient Pain Free? Yes Yes Yes - Nurse 1 - General Ulcer Measurement Start: 11/19/23 09:17 Freq: Status: Active Protocol: Activity Type Activity Date Activity User E-sign Co-sign Detail Recorded Client Recorded Date Recorded By Document 11/19/23 09:17 KW [id number] 11/19/23 09:24 KW Document 11/26/23 09:24 DS [id number] 11/26/23 09:34 DS Document 12/10/23 09:12 KW [id number] 12/10/23 09:16 KW 11/19/23 11/26/23 12/10/23 09:17 09:24 09:12 Wound Center Nurse 1 lower mid back -Current Size (cm) - Length 2.3 2.5 2.5 -Current Size (cm) - Width 1.2 1.4 1.4 -Current Size (cm) - Depth 0.1 0.1 0.1 -Total Square Cm 2.76 3.50 3.50 -Date of Last Picture (Recall this 12/10/23 field) -Photo Taken No -Tunneling No -Undermining/Tunneling No -Circular Undermining No -Exudate Amt Small Small -Exudate Type Serosanguineous Serosanguineous -Wound Margin Distinct, Distinct, Distinct, Outline Outline Outline Attached Attached Attached -Granulation Amt None Present (0 Medium (34-66%) %) -Granulation Quality [place] -Necrosis Amt Large (67-100%) Large (67-100%) Medium (34-66%) -Necrotic Tissue Type Adherent Slough Adherent Slough Adherent Slough -Texture (Zora-wound Skin Appearance) Assessed Assessed Assessed -Moisture (Zora-wound Skin Appearance) Assessed Assessed Assessed -Color (Zora-wound Skin Appearance) Assessed Assessed Assessed -Temperature (Zora-wound Skin No Abnormality No Abnormality No Abnormality Appearance) (Pt Warm) (Pt Warm) (Pt Warm) -Tenderness on Palpation (Zora-wound No No No Skin Appearance) -Ulcer Cleansing Rinsed/ Soap and Water Rinsed/ Irrigated with Irrigated with Saline Saline -Foul Odor after Cleansing No No -Anesthetic Used 5% Lidocaine 5% Lidocaine 5% Lidocaine Gel Gel Gel WC - Nurse 2 - General Ulcer CM Notes Start: 11/19/23 09:17 Freq: Status: Active Protocol: Activity Type Activity Date Activity User E-sign Co-sign Detail Recorded Client Recorded Date Recorded By Document 11/19/23 09:36 GM [id number] 11/19/23 09:40 GM Edit Result 11/19/23 09:36 GM (1) [id number] 11/19/23 09:41 GM Document 11/26/23 09:43 GM [id number] 11/26/23 09:48 GM Document 12/10/23 09:31 GM [id number] 12/10/23 09:39 GM (1) lower mid back - Post Debridement (cm) - Width 1.8 => 1.3 - Total Square (Post) (cm) 4.50 => 3.25 - Area of Debridement (cm) - Width 1.8 => 1.3 - Total Square (Area) (cm) 4.50 => 3.25 11/19/23 11/26/23 12/10/23 09:36 09:43 09:31 Wound Center Nurse 2 lower mid back -Time 09: 09:44 09:32 -Correct Patient Yes Yes Yes -Correct Side, Site, Position Yes Yes Yes -Correct Procedure Yes Yes Yes -Procedure Performed Yes Yes Yes -Type of Procedure Debridement Debridement Debridement -Clinical Debridement Subcutaneous Subcutaneous Subcutaneous -Tissue Removed Subcutaneous Subcutaneous Subcutaneous -Post Debridement (cm) - Length 2.5 2.4 2.5 -Post Debridement (cm) - Width 1.3 1.4 1.3 -Post Debridement (cm) - Depth 0.1 0.1 0.1 -Total Square (Post) (cm) 3.25 3.36 3.25 -Area of Debridement (cm) - Length 2.5 2.4 2.5 -Area of Debridement (cm) - Width 1.3 1.4 1.3 -Total Square (Area) (cm) 3.25 3.36 3.25 -Tunneling No No No -Undermining/Tunneling No No No -Circular Undermining No No No -Wound/Ulcer Outcome Not Healed Not Healed Not Healed -Ulcer Cleansing Rinsed/ Rinsed/ Rinsed/ Irrigated with Irrigated with Irrigated with Saline Saline Saline -Foul Odor after Cleansing No No No -Bioengineered Tissue No No No -Bleeding Controlled with Pressure Pressure Pressure -Treatment Response Procedure Procedure Procedure Tolerated Well Tolerated Well Tolerated Well -Debridement - Subq, 1st 20sq cm Yes Yes Yes Pain Scale: 0-10 Numeric Is Patient Pain Free? Yes Yes Yes WC - Nurse 3 - General Ulcer D/C NN Start: 11/19/23 09:17 Freq: Status: Active Protocol: Activity Type Activity Date Activity User E-sign Co-sign Detail Recorded Client Recorded Date Recorded By Document 11/19/23 09:53 [facility] [id number] 11/19/23 09:54 [facility] Document 11/26/23 09:57 KW [id number] 11/26/23 09:58 KW 11/19/23 11/26/23 09:53 09:57 Wound Care Center Nurse 3 lower mid back -Ulcer Cleansing Rinsed/ Irrigated with Saline -Foul Odor after Cleansing No -Other Dressing santyl, abd pad hydrogel today, santyl at home -Primary Dressing Covered/Secured with Secured with Dry Gauze, Tape Secured with Tape Pain Scale: 0-10 Numeric Is Patient Pain Free? 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 (2) Radiation necrosis of skin and subcutaneous: CODE(S): L59.8 - Other specified disorders of the skin and subcutaneous tissue related to radiation; Y84.2 - Radiological procedure and radiotherapy as the cause of abnormal reaction of the patient, or of later complication, without mention of misadventure at the time of the procedure (3) Delayed effect of radiation: CODE(S): T66.XXXS - Radiation sickness, unspecified, sequela (4) Colon cancer metastasized to multiple sites: CODE(S): C18.9 - Malignant neoplasm of colon, unspecified PLAN: Plan Debridement done as documented above, procedure was well-tolerated. Stable. No significant change. Slightly better granulation. Continue Santyl, apply nickel thick daily, cover with moistened gauze. Continue Ensure or Kirk twice daily and optimal dietary intake. Continue other chronic wound care as previously discussed. Remains on chemotherapy. Consider switching wound care if no significant change at next visit. Their questions were answered and they were advised to let us know if they have any further questions or concerns. Follow- up in 2 weeks. This note was generated with [employer] dictation software. It may contain incorrect words, spelling, and punctuation that were not noted in checking the note before signing.
--- NOTE | 2023-12-14 11:40 | WC ---
PHOTO 12/10/23 MID BACK
== END 2023-12-10 23:59 | disposition home or self-care (01) ==
LOC: WC 09:15
PROVIDERS: PCP Family Medicine; Referring Provider Nurse Practitioner Family; Visit Provider Internal Medicine
DX: L59.8 Other specified disorders of the skin and subcutaneous tissue related to radiation (principal); C79.9 Secondary malignant neoplasm of unspecified site; L98.422 Non-pressure chronic ulcer of back with fat layer exposed; C18.9 Malignant neoplasm of colon, unspecified; Y84.2 Radiological procedure and radiotherapy as the cause of abnormal reaction of the patient, or of later complication, without mention of misadventure at the time of the procedure; Z79.899 Other long term (current) drug therapy
CPT/HCPCS: 11042

== ENCOUNTER 2023-12-31 09:15 | Outpatient (RCR) | payer MEDICARE, SELFPAY ==
[2023-12-11 00:16] VITALS: BP 119/75; PULSE 95; RESP 18; TEMP 36.1
[2023-12-24 09:23] VITALS: BP 115/77; RESP 16; TEMP 36.7; O2SAT 96
--- NOTE | 2023-12-24 12:19 | PCM.WC.PN ---
History of Present Illness Date of Service: 12/24/23 Chief Complaint: Back Ulcer History of Wound: Ms. Toledo is a 77-year-old referred to the wound center by her oncologist due to nonhealing back ulcer. She states that as a baby, she had radiation to the back area due to a birthmark. She had no concerns until about a year ago when she had radiations for management of metastatic colon cancer. Since September 2022, there has been an open area which has not healed. No significant drainage. Some pain. Actively receiving chemotherapy. No chills or fever however, she states that her appetite is fair. Currently taking Ensure twice daily and had taken Kirk in the past. Progress of Wound: No new concerns reported at this time. Has been using Santyl consistently as recommended. Restarted chemotherapy. Objective Data Objective Data Vital Signs: Vital Signs Temp Pulse Resp BP Pulse Ox O2 Del Method 98.1 F 95 16 115/77 96 Room Air 12/24/23 09:23 12/11/23 00:16 12/24/23 09:23 12/24/23 09:23 12/24/23 09:23 12/24/23 09:23 Oxygen Delivery Method Room Air Charges/Coding Procedures Integumentary 111xxx-113xx: 04143 Sarah subq tissue 20 sq cm/< Physical Exam Const alert, oriented x3 and no apparent distress General Appearance: cooperative and comfortable HEENT normocephalic, head/scalp atraumatic and hearing grossly normal bilaterally Eyes EOMs intact bilaterally Neck full ROM General: normal visual inspection Resp normal respiratory effort Effort and Inspection: able to speak in complete sentences Extremity no pedal edema Skin Wounds: wounds noted size Size: See Clinical note, bed yellow and with slough, margins well defined, no odor and open Neuro oriented x3, CN's II-XII intact bilaterally and moves all extremities Psych mental status grossly normal, thought process normal, cooperative and affect normal Debridement Note Debridement Note Wound debrided: Back Type of Debridement: Excisional debridement Anesthesia Used: 5% Lidocaine Gel Depth: in the subcutaneous layer Percentage of wound debrided: 100 Instrument Used: 5mm curette Tissue Removed: Slough and devitalized tissue Severity: Fat Layer Exposed Amount of bleeding with debridement: Mild Bleeding Controlled with: Pressure Patient tolerated procedure: Patient tolerated procedure well Post-Debridement Measurements and Additional Note: Post-Debridement Measurements/Treatment WC - Nurse 1 - General Ulcer Assessment Start: 12/24/23 09:23 Freq: Status: Active Protocol: PILLO Activity Type Activity Date Activity User E-sign Co-sign Detail Recorded Client Recorded Date Recorded By Document 12/24/23 09:23 [id number] 12/24/23 09:30 12/24/23 09:23 - Today's Visit Information Type of service Follow-up Visit (Physician/EMBEDDED SOFTWARE MANAGER ) Arrival Mode Ambulatory Accompanied by Spouse Patient Identification Verified (Name & Yes ) Vital Signs Temperature (97.8 F-99.1 F) 98.1 F Temperature Source Temporal Pulse Location Monitor Respiratory Rate (12-18) 16 Respiratory rate source Observation Pulse Oximetry 96 Oxygen Delivery Method Room Air Blood Pressure (90/60-120/80) 115/77 Blood Pressure Mean (mm Hg) 89 Source Monitor Position Sitting Blood Pressure Location Left Arm History Since Last Visit- (Skip if this is Patient's initial visit) Have you changed medications since your No last visit? Any new allergies or adverse reactions No Had a fall/change in ADL's that may No increase risk of falls Signs or symptoms of abuse and/or No neglect since last visit Have you been in the hospital since your No last visit? Has dressing in place as prescribed Yes Has compression in place as prescribed Yes Has offloadiing in place as prescribed N/A Experienced any changes in pain level or No management Pain Scale: 0-10 Numeric Is Patient Pain Free? Yes - Nurse 1 - General Ulcer Measurement Start: 12/24/23 09:23 Freq: Status: Active Protocol: Activity Type Activity Date Activity User E-sign Co-sign Detail Recorded Client Recorded Date Recorded By Document 12/24/23 09:23 [id number] 12/24/23 09:30 12/24/23 09:23 Wound Center Nurse 1 lower mid back -Current Size (cm) - Length 2.5 -Current Size (cm) - Width 1.0 -Current Size (cm) - Depth 0.1 -Total Square Cm 2.50 -Date of Last Picture (Recall this 12/24/23 field) -Photo Taken Yes -Tunneling No -Undermining/Tunneling No -Circular Undermining No -Exudate Amt Small -Exudate Type Serous -Wound Margin Distinct, Outline Attached -Slough/Fibrin Yes -Necrosis Amt Large (67-100%) -Necrotic Tissue Type Adherent Slough -Texture (Zora-wound Skin Appearance) Assessed -Moisture (Zora-wound Skin Appearance) Assessed -Color (Zora-wound Skin Appearance) Assessed -Temperature (Zora-wound Skin No Abnormality Appearance) (Pt Warm) -Tenderness on Palpation (Zora-wound No Skin Appearance) -Ulcer Cleansing Rinsed/ Irrigated with Saline -Foul Odor after Cleansing No -Anesthetic Used 5% Lidocaine Gel - Nurse 2 - General Ulcer CM Notes Start: 12/24/23 09:23 Freq: Status: Active Protocol: Activity Type Activity Date Activity User E-sign Co-sign Detail Recorded Client Recorded Date Recorded By Document 12/24/23 09:42 [id number] 12/24/23 09:49 12/24/23 09:42 Wound Center Nurse 2 -Time 09:43 -Correct Patient Yes -Correct Side, Site, Position Yes -Correct Procedure Yes -Procedure Performed Yes -Type of Procedure Debridement -Clinical Debridement Subcutaneous -Tissue Removed Subcutaneous -Post Debridement (cm) - Length 2.5 -Post Debridement (cm) - Width 1.2 -Post Debridement (cm) - Depth 0.1 -Total Square (Post) (cm) 3.00 -Area of Debridement (cm) - Length 2.5 -Area of Debridement (cm) - Width 1.2 -Total Square (Area) (cm) 3.00 -Tunneling No -Undermining/Tunneling No -Circular Undermining No -Wound/Ulcer Outcome Not Healed -Ulcer Cleansing Rinsed/ Irrigated with Saline -Foul Odor after Cleansing No -Bioengineered Tissue No -Bleeding Controlled with Pressure -Treatment Response Procedure Tolerated Well -Debridement - Subq, 1st 20sq cm Yes Pain Scale: 0-10 Numeric Is Patient Pain Free? Yes - Nurse 3 - General Ulcer D/C NN Start: 12/24/23 09:23 Freq: Status: Active Protocol: Activity Type Activity Date Activity User E-sign Co-sign Detail Recorded Client Recorded Date Recorded By Document 12/24/23 10:00 RB [id number] 12/24/23 10:00 RB 12/24/23 10:00 Wound Care Center Nurse 3 lower mid back -Primary Dressing Applied Aquacel Extra, Mepilex Border -Aquacel Extra 1 -Mepilex Border 1 Treatment Response Procedure Tolerated Well Pain Scale: 0-10 Numeric Is Patient Pain Free? 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 (2) Radiation necrosis of skin and subcutaneous: CODE(S): L59.8 - Other specified disorders of the skin and subcutaneous tissue related to radiation; Y84.2 - Radiological procedure and radiotherapy as the cause of abnormal reaction of the patient, or of later complication, without mention of misadventure at the time of the procedure (3) Delayed effect of radiation: CODE(S): T66.XXXS - Radiation sickness, unspecified, sequela (4) Colon cancer metastasized to multiple sites: CODE(S): C18.9 - Malignant neoplasm of colon, unspecified PLAN: Plan Debridement done as documented above, procedure was well-tolerated. No change. Hold off Santyl for now. Switch to moistened Aquacel, cover with Adaptic and foam dressing for comfort. Continue Ensure or Kirk twice daily and optimal dietary intake. She states that her appetite is good. Continue other chronic wound care as previously discussed. Their questions were answered and they were advised to let us know if they have any further questions or concerns. Follow-up in 1 week. This note was generated with [employer] software. It may contain incorrect words, spelling, and punctuation that were not noted in checking the note before signing.
--- NOTE | 2023-12-28 08:56 | WC ---
PHOTO 12/24/23 MID BACK
[2023-12-31 10:02] VITALS: BP 119/76; PULSE 95; RESP 18; TEMP 36.7
--- NOTE | 2023-12-31 12:33 | PN.PCM_ITS ---
History of Present Illness Date of Service: 12/31/23 Chief Complaint: Back Ulcer History of Wound: Ms. Toledo is a 77-year-old referred to the wound center by her oncologist due to nonhealing back ulcer. She states that as a baby, she had radiation to the back area due to a birthmark. She had no concerns until about a year ago when she had radiations for management of metastatic colon cancer. Since September 2022, there has been an open area which has not healed. No significant drainage. Some pain. Actively receiving chemotherapy. No chills or fever however, she states that her appetite is fair. Currently taking Ensure twice daily and had taken Kirk in the past. Progress of Wound: Had more pain with Aquacel this week and has been some worsening/increased slough compared to her last visit. She states that she is now on 3 different chemotherapy medications, increased fatigue. Objective Data Objective Data Vital Signs: Vital Signs Temp Pulse Resp BP Pulse Ox O2 Del Method 98.0 F 95 18 119/76 96 Room Air 12/31/23 10:02 12/31/23 10:02 12/31/23 10:02 12/31/23 10:02 12/24/23 09:23 12/31/23 10:02 Oxygen Delivery Method Room Air Charges/Coding Procedures Integumentary 111xxx-113xx: [id number] Sarah subq tissue 20 sq cm/< Physical Exam Const alert, oriented x3 and no apparent distress General Appearance: cooperative and comfortable HEENT normocephalic, head/scalp atraumatic and hearing grossly normal bilaterally Eyes EOMs intact bilaterally Neck full ROM General: normal visual inspection Resp normal respiratory effort Effort and Inspection: able to speak in complete sentences Extremity no pedal edema Skin Wounds: wounds noted size Size: See Clinical note, bed yellow and with slough, margins well defined, no odor and open Neuro oriented x3, CN's II-XII intact bilaterally and moves all extremities Psych mental status grossly normal, thought process normal, cooperative and affect normal Debridement Note Debridement Note Wound debrided: Mid back Type of Debridement: Excisional debridement Anesthesia Used: 4% Lidocaine Solution and 5% Lidocaine Gel Depth: Down to and including healthy tissue and in the subcutaneous layer Percentage of wound debrided: 100 Instrument Used: 5mm curette Tissue Removed: Slough and devitalized tissue Severity: Fat Layer Exposed Amount of bleeding with debridement: Mild Bleeding Controlled with: Pressure Patient tolerated procedure: Patient tolerated procedure well Post-Debridement Measurements and Additional Note: Post-Debridement Measurements/Treatment WC - Nurse 1 - General Ulcer Assessment Start: 12/24/23 09:23 Freq: Status: Active Protocol: PILLO Activity Type Activity Date Activity User E-sign Co-sign Detail Recorded Client Recorded Date Recorded By Document 12/24/23 09:23 [id number] 12/24/23 09:30 Document 12/31/23 10:02 [id number] 12/31/23 10:07 KW 12/24/23 12/31/23 09:23 10:02 MARYAN - Today's Visit Information Type of service Follow-up Visit Follow-up Visit (Physician/INSTRUCTOR PHYSICAL EDUCATION (Physician/INSTRUCTOR PHYSICAL EDUCATION ) ) Arrival Mode Ambulatory Ambulatory Accompanied by Spouse Patient Identification Verified (Name & Yes Yes ) Vital Signs Temperature (97.8 F-99.1 F) 98.1 F 98.0 F Temperature Source Temporal Temporal Pulse Rate (60-100) 95 Pulse Location Monitor Monitor Respiratory Rate (12-18) 16 18 Respiratory rate source Observation Observation Pulse Oximetry 96 Oxygen Delivery Method Room Air Room Air Blood Pressure (90/60-120/80) 115/77 119/76 Blood Pressure Mean (mm Hg) 89 90 Source Monitor Monitor Position Sitting Sitting Blood Pressure Location Left Arm Left Arm History Since Last Visit- (Skip if this is Patient's initial visit) Have you changed medications since your No No last visit? Any new allergies or adverse reactions No No Had a fall/change in ADL's that may No No increase risk of falls Signs or symptoms of abuse and/or No No neglect since last visit Have you been in the hospital since your No No last visit? Has dressing in place as prescribed Yes Yes Has compression in place as prescribed Yes N/A Has offloadiing in place as prescribed N/A N/A Experienced any changes in pain level or No No management Left Footwear Regular Shoe Right Footwear Regular Shoe Pain Scale: 0-10 Numeric Is Patient Pain Free? Yes Yes MARYAN - Nurse 1 - General Ulcer Measurement Start: 12/24/23 09:23 Freq: Status: Active Protocol: Activity Type Activity Date Activity User E-sign Co-sign Detail Recorded Client Recorded Date Recorded By Document 12/24/23 09:23 [id number] 12/24/23 09:30 Document 12/31/23 10:02 [id number] 12/31/23 10:07 12/24/23 12/31/23 09:23 10:02 Wound Center Nurse 1 lower mid back -Current Size (cm) - Length 2.5 2.5 -Current Size (cm) - Width 1.0 1.7 -Current Size (cm) - Depth 0.1 0.1 -Total Square Cm 2.50 4.25 -Date of Last Picture (Recall this 12/24/23 field) -Photo Taken Yes -Epithelialization Small 1-33% -Tunneling No -Undermining/Tunneling No -Circular Undermining No -Exudate Amt Small Small -Exudate Type Serous Serosanguineous -Wound Margin Distinct, Distinct, Outline Outline Attached Attached -Granulation Amt Small (1-33%) -Granulation Quality [place] -Slough/Fibrin Yes -Necrosis Amt Large (67-100%) Large (67-100%) -Necrotic Tissue Type Adherent Slough Adherent Slough -Texture (Zora-wound Skin Appearance) Assessed Assessed -Moisture (Zora-wound Skin Appearance) Assessed Assessed -Color (Zora-wound Skin Appearance) Assessed Assessed -Temperature (Zora-wound Skin No Abnormality No Abnormality Appearance) (Pt Warm) (Pt Warm) -Tenderness on Palpation (Zora-wound No No Skin Appearance) -Ulcer Cleansing Rinsed/ Soap and Water Irrigated with Saline -Foul Odor after Cleansing No No -Anesthetic Used 5% Lidocaine 5% Lidocaine Gel Gel WC - Nurse 2 - General Ulcer CM Notes Start: 12/24/23 09:23 Freq: Status: Active Protocol: Activity Type Activity Date Activity User E-sign Co-sign Detail Recorded Client Recorded Date Recorded By Document 12/24/23 09:42 [id number] 12/24/23 09:49 Document 12/31/23 10:17 [id number] 12/31/23 10:20 12/24/23 12/31/23 09:42 10:17 Wound Center Nurse 2 lower mid back -Time 09:43 10:17 -Correct Patient Yes Yes -Correct Side, Site, Position Yes Yes -Correct Procedure Yes Yes -Procedure Performed Yes Yes -Type of Procedure Debridement Debridement -Clinical Debridement Subcutaneous Subcutaneous -Tissue Removed Subcutaneous Subcutaneous -Post Debridement (cm) - Length 2.5 2.4 -Post Debridement (cm) - Width 1.2 1.5 -Post Debridement (cm) - Depth 0.1 0.1 -Total Square (Post) (cm) 3.00 3.60 -Area of Debridement (cm) - Length 2.5 2.4 -Area of Debridement (cm) - Width 1.2 1.5 -Total Square (Area) (cm) 3.00 3.60 -Tunneling No No -Undermining/Tunneling No No -Circular Undermining No No -Wound/Ulcer Outcome Not Healed Not Healed -Ulcer Cleansing Rinsed/ Rinsed/ Irrigated with Irrigated with Saline Saline -Foul Odor after Cleansing No No -Bioengineered Tissue No No -Bleeding Controlled with Pressure Pressure -Treatment Response Procedure Procedure Tolerated Well Tolerated Well -Debridement - Subq, 1st 20sq cm Yes Yes Pain Scale: 0-10 Numeric Is Patient Pain Free? Yes Yes - Nurse 3 - General Ulcer D/C NN Start: 12/24/23 09:23 Freq: Status: Active Protocol: Activity Type Activity Date Activity User E-sign Co-sign Detail Recorded Client Recorded Date Recorded By Document 12/24/23 10:00 RB [id number] 12/24/23 10:00 RB Document 12/31/23 10:31 DL [id number] 12/31/23 10:33 DL 12/24/23 12/31/23 10:00 10:31 Wound Care Center Nurse 3 lower mid back -Ulcer Cleansing Rinsed/ Irrigated with Saline -Foul Odor after Cleansing No -Primary Dressing Applied Aquacel Extra, Aquacel Extra, Mepilex Border Mepilex Border -Aquacel Extra 1 1 -Mepilex Border 1 1 Treatment Response Procedure Procedure Tolerated Well Tolerated Well Pain Scale: 0-10 Numeric Is Patient Pain Free? 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 (2) Radiation necrosis of skin and subcutaneous: CODE(S): L59.8 - Other specified disorders of the skin and subcutaneous tissue related to radiation; Y84.2 - Radiological procedure and radiotherapy as the cause of abnormal reaction of the patient, or of later complication, without mention of misadventure at the time of the procedure (3) Delayed effect of radiation: CODE(S): T66.XXXS - Radiation sickness, unspecified, sequela (4) Colon cancer metastasized to multiple sites: CODE(S): C18.9 - Malignant neoplasm of colon, unspecified PLAN: Plan Debridement done as documented above, procedure was well-tolerated. She did not do so well with Aquacel. Increased pain and increased slough. Will revert to Santyl, cover with moistened Aquacel and ABD for comfort. Continue Ensure or Kirk twice daily and optimal dietary intake. Lately, has felt more unwell and fatigued due to being on 3 different chemotherapy medications. Continue other chronic wound care as previously discussed. Their questions were answered and they were advised to let us know if they have any further questions or concerns. Follow-up in 2 weeks or sooner if needed. Call with any concerns. This note was generated with [employer] dictation software. It may contain incorrect words, spelling, and punctuation that were not noted in checking the note before signing.
== END 2024-01-09 23:59 | disposition home or self-care (01) ==
LOC: WC 09:15
PROVIDERS: PCP Family Medicine; Referring Provider Nurse Practitioner Family; Visit Provider Internal Medicine
DX: L59.8 Other specified disorders of the skin and subcutaneous tissue related to radiation (principal); C79.9 Secondary malignant neoplasm of unspecified site; L98.422 Non-pressure chronic ulcer of back with fat layer exposed; C18.9 Malignant neoplasm of colon, unspecified; Y84.2 Radiological procedure and radiotherapy as the cause of abnormal reaction of the patient, or of later complication, without mention of misadventure at the time of the procedure; Z79.899 Other long term (current) drug therapy
CPT/HCPCS: 11042

== ENCOUNTER → 2024-02-05 | Outpatient (CLI) | payer MEDICARE, SELFPAY ==
--- NOTE | 2024-02-05 15:00 | CT_ITS ---
EXAM: CT CHEST, ABDOMEN AND PELVIS WITH INTRAVENOUS CONTRAST CLINICAL INDICATION: Metastatic colon carcinoma. Assess response to treatment. TECHNIQUE: Helically acquired images were obtained of the chest, abdomen and pelvis with intravenous contrast. This CT exam was performed using one or more of the following dose reduction techniques: automated exposure control, adjustment of the mA and/or kV according to patient size, and/or use of iterative reconstruction technique. CONTRAST: IV 75mL Isovue-300 RADIATION DOSE: CTDIvol = 8.84 mGy, DLP = 478.18 mGy-cm COMPARISON: CT chest abdomen pelvis with contrast 11/03/2023. FINDINGS: CHEST: LUNGS AND PLEURAL SPACES: Increasing size and number of metastatic pulmonary nodules in both lungs. No pleural effusion or thickening. No pneumothorax. HEART: 1.5 cm thick left anterior pericardial effusion, previously 0.9 cm. Mild cardiomegaly. MEDIASTINUM: Unremarkable. No mediastinal or hilar adenopathy. Esophagus is unremarkable. No hiatal hernia. THYROID: Unremarkable. No thyroid lesions. ABDOMEN: LIVER: Increasing size of lobulated metastatic mass in segment 8 of the liver parenchyma measuring 8.3 x 8.9 x 8.6 cm, previously 6.9 x 6.7 x 7.2 cm. GALLBLADDER AND BILE DUCTS: Unremarkable. No calcified gallstones. No gallbladder distention or wall edema. No intra- or extrahepatic biliary ductal dilation. PANCREAS: Unremarkable. No focal cystic or solid mass. SPLEEN: Splenomegaly measuring 15 cm long. ADRENALS: Unremarkable. No nodules. KIDNEYS AND URETERS: Postsurgical absence of the right kidney. Normal left kidney. Normal renal size and position. No hydronephrosis. STOMACH AND BOWEL: Intramural thickening of the sigmoid colon was present previously. Contrast inside the stomach and small bowel loops. No bowel obstruction. PELVIS: APPENDIX: The appendix is not visualized but there are no secondary signs of acute appendicitis. BLADDER: Unremarkable. REPRODUCTIVE: Unremarkable as visualized. No mass. CHEST, ABDOMEN and PELVIS: INTRAPERITONEAL SPACE: Unremarkable. No ascites or other fluid collection. No free air. BONES/JOINTS: Pronounced levo rotary scoliosis of the lumbar spine pronounced right-sided disc space height narrowing at L1-L2 and L2-L3 disc space levels. Pronounced diffuse narrowing of the L3-L4 disc space. Grade 1 left lateral degenerative subluxation of L3 on L4. Pronounced L4-L5 disc space height narrowing. Expansile metastases to the right posterior T12 rib. This was present previously. SOFT TISSUES: Unremarkable. No discrete abdominal or pelvic wall hernia. VASCULATURE: Large ascending aortic aneurysm with a diameter of 7.3 cm. No aortic dissection. No obvious central pulmonary embolism although this study was not performed with the pulmonary embolism protocol. LYMPH NODES: Unremarkable. No enlarged lymph nodes. CT/CT Chest, Abd, Pel w/Contrast IMPRESSION: 1. Increasing size and number of multiple pulmonary metastatic nodules in both lungs. 2. Increasing size of lobulated metastatic mass in segment 8 of the liver parenchyma. The dimensions are given above. 3. Expansile metastases to the right posterior 12th rib is unchanged. Bone scan will help determine the extent of skeletal metastases. 4. Very large ascending aortic aneurysm with a diameter of 7.3 cm but no aortic dissection. This is unchanged. 5. Abnormal intramural thickening of the sigmoid colon. Previously described diverticulosis is difficult to confirm. 6. No other additional findings or changes. Electronically Signed: Marcelo Lin MD at 16:09 EST ,
[2024-02-05] MEDS: 0.9% Saline Lock 10 ML Syringe IV (15:11)
== END | disposition home or self-care (01) ==
PROVIDERS: PCP Family Medicine; Referring Provider Nurse Practitioner Family; Visit Provider Nurse Practitioner Family
DX: C18.9 Malignant neoplasm of colon, unspecified (principal); C79.9 Secondary malignant neoplasm of unspecified site
CPT/HCPCS: 71260; 74177; Q9967; A4216